=== PATIENT | male | born 1945 | race Caucasian/White ===

== ENCOUNTER → 2017-10-02 14:08 | Outpatient (CLI) | payer OTHER, SELFPAY ==
[2017-10-02 14:35] LABS: Add Manual Diff / Slide Review NO; Basophils Percent Auto 0.6 % (0-2); Eosinophils Percent Auto 2.3 % (2-4); Hematocrit 45.5 % (41-53); Hemoglobin 15.7 g/dL (13.5-17.5); Mean Corpuscular HGB Conc 34.6 % (30-36); Mean Corpuscular Hemoglobin 29.6 PG (26-34); Mean Corpuscular Volume 85.6 fL (80-100); Monocytes Percent Auto 7.8 % (3-14); Neutrophils Absolute Auto 5500 /uL (3000-5900); Neutrophils Percent Auto 73.3 % (50-75); Platelet Count 182 X10^3/uL (150-400); Red Blood Cell Count 5.32 X10^6/uL (4.5-5.9); Red Cell Distribution Width 13.3 % (11.6-14.8); White Blood Cell Count 7.5 X10^3/uL (4.5-11.0)
[2017-10-02 14:54] LABS: Transferrin 261 mg/dL (206-381)
[2017-10-02 14:57] LABS: BUN Creatinine Ratio 23.6 (6-22); Estimated Glomerular Filt Rate > 60.0 mL/min (>60); Glucose 144 mg/dL (80-110); HEMOLYSIS 28 (0-50); Hemoglobin A1C% w Est Avg Glu 6.9 % (4.0-6.0); Potassium 4.7 mmol/L (3.4-5.1); Sodium 140 mmol/L (137-145)
== END ==
PROVIDERS: PCP Internal Medicine; Visit Provider Orthopaedic Surgery
DX: Z01.812 Encounter for preprocedural laboratory examination (principal); M25.561 Pain in right knee; D64.9 Anemia, unspecified; R73.9 Hyperglycemia, unspecified
CPT/HCPCS: 36415; 80048; 83036; 84466; 85025; 93005

== ENCOUNTER 2017-10-26 09:47 | Inpatient (IN) | payer OTHER, SELFPAY ==
[2017-10-14 09:51] VITALS: BMI 31.4
[2017-10-26] VITALS (21 sets, daily range): BP systolic 81–125; BP diastolic 53–85; PULSE 57–79; RESP 10–70; TEMP 36.1–37.1; O2SAT 90–99; BMI 31.1
[2017-10-26] MEDS: LACTATED RINGERS 1,000 ML 42 ML IV ×2 (10:20→12:51)
[2017-10-26] MEDS: fentaNYL 100 MCG/2 ML INJ 50 MCG IV (10:27)
[2017-10-26] MEDS: MIDAZOLAM 2 MG/2 ML VIAL IV (10:27)
--- NOTE | 2017-10-26 11:01 | SUR.PREOP ---
Addendum entered by Francesco Turner R.N. 10/26/17 11:06: Actual time [id number]. Original Note: Ultrasound guided block by Dr Gore tolerated well by the patient. Premedicated with Fentanyl and Midazolam. Time of block 3700-0897.
--- NOTE | 2017-10-26 11:02 | SUR.PREOP ---
Needing o2 supplementation with sats decreasing. Some pauses in respiratory rate seen too. Patient does have history of ELIZABETH. Started oxygen at 2l and increased to 4L to keep sats >92%.
--- NOTE | 2017-10-26 11:26 | PM.PREOP ---
Pre-operative Note Interval Note Pre-op Check: History & Physical Reviewed by Physician and Changes
[2017-10-26] MEDS: CLINDAMYCIN 900 MG/50 ML PIGGYBACK 50 MG IV (11:27)
--- NOTE | 2017-10-26 12:11 | SUR.OPER ---
Supine on padded OR bed. Pillow under head, arms secured on padded armboards <90 degree abduction. Safety belt across torso. Non-operative leg secured with tape over blanket over lower leg. Operative leg secured in [place]. Foam padded brace at thigh of operative leg.
[2017-10-26] MEDS: MORPHINE 4 MG/ML INJ INJ (12:17)
[2017-10-26] MEDS: BUPIVACAINE 0.25% W/ EPI 50 ML VIAL INJ (12:17)
[2017-10-26] MEDS: BUPIVACAINE LIPOSOME 266 MG/20 ML VIAL INJ (12:18)
--- NOTE | 2017-10-26 13:11 | PC.NURSE ---
Day shift: Pt has many items in red due but Pt is not on the AC unit yet. 1200 start in OR. The charting will start when Pt gets to this unit.
--- NOTE | 2017-10-26 13:29 | DI.RAD.S_ITS ---
PROCEDURE: XR KNEE RT 1TO2V INDICATIONS: post operative right total knee TECHNIQUE: 2 view(s) of the knee acquired. COMPARISON: [facility] [place], JAQUELIN, XR KNEE 1 OR 2 VIEWS RIGHT, 10/26/2017, 9:25. FINDINGS: Bones: Patient is status post knee joint arthroplasty. Hardware components are in expected positions. Visualized bony structures are intact. Soft tissues: Overlying postoperative changes are noted. Expected postoperative edema, fluid, and air are evident. No definite radiopaque foreign bodies are appreciated. Overlying bandage is seen, anteriorly. Scattered vascular calcifications are seen posteriorly. IMPRESSION: Expected postoperative changes of the right knee, related to a total right knee arthroplasty. Dictated by: Pravin Boswell M.D. on 10/26/2017 at 12:58 Approved by: Pravin Boswell M.D. on 10/26/2017 at 12:59
--- NOTE | 2017-10-26 13:33 | P.OP_ITS ---
Operative Date/Time/Diagnoses - Date of procedure: 10/26/17 Time of procedure: 13:30 Pre-op diagnosis: Right knee osteoarthritis Post-op diagnosis: same Procedure & Clinicians Procedure: Right total knee replacement Same procedure as scheduled: Yes Indications: The patient has had progressively worsening right knee pain with radiographic changes consistent with arthritis. Non-operative management has failed and the patient has requested total knee replacement. The risks, benefits and alternatives to surgery were discussed with the patient prior to proceeding. Risks discussed included, but were not limited to, failure to relieve pain, stiffness, infection, nerve damage, deep venous thrombosis, pulmonary embolism, stroke, coma, heart attack, permanent paralysis and , as well as the potential need for eventual revision of the prosthetic. Surgeon: Bharat Patel Senior Games Technician: Suki Barrera Click Yes if Unassisted: No Anesthesia Type: Spinal, Sedation, Peripheral nerve block and Local Operative Notes Findings: Severe tricompartmental osteoarthritis worst in the medial compartment. Closure Type: primary Specimen(s): none sent Implants & Drains: Implants used in this procedure were manufactured by the [employer] and included the BCS II Journey total knee replacement with a size 8 right Oxinium femoral component, 7 right non porous tibial base plate, 10 mm cross-linked BCS II tibial insert, and a 38 mm oval flor II patellar component. Applied: graft(s) Estimated Blood Loss (mL): 50 Blood products transfused: none Tourniquet time (min): 57 Procedure in detail: The patient was seen in the pre-operative area, where the patient identified the right knee as the operative site and this was marked with my initials. The patient received pre-operative antibiotics, and was taken to the operating room and placed on the operative table in the supine position. After satisfactory anesthesia, a full charge bookkeeper out was performed. The right leg was encircled with a tourniquet about the proximal thigh, and the leg was prepared from the toes to the tourniquet with ChloroPrep in the usual fashion and draped through sterile drapes. The leg was elevated and exsanguinated with Eschmark bandage and the tourniquet inflated to 250 mmHg pressure. The knee was approached through an approximately 18 cm incision centered over the patella and carried into the knee through a medial parapatellar arthrotomy. The anterior osteophytes and soft tissues were removed. The rotational landmarks of El's line and the transepicondylar axis were marked on the femur with electrocautery, and intramedullary guide holes for the femur and tibia were created. The distal femoral cut was made in 6 degrees of valgus using the intramedullary guide at the primary cut setting. The proximal tibial cut was then made using the intramedullary guide, taking 9 mm of bone off the less involved side. The extension gap was checked and the rotation of the femoral component confirmed with the gap balancing system. The anterior, posterior and chamfer cuts were then made. The posterior osteophytes and soft tissues were then removed. The posterior capsule was injected with part of a mixture of 50 ml 0.25% Marcaine mixed with 20 ml Exparel and 4 mg of morphine for post-operative pain control. The remainder of this mixture was injected into the capsule and subcutaneous tissues during cement curing. The tibia was prepared with the rotation set by an extra medullary guide. Trial tibial and femoral components were then placed and the intercondylar notch cut through the femoral trial. Range of motion was 0-135 degrees, with good stability throughout the range. The patella was then cut to accommodate the patellar prosthetic. There was no need for a lateral release. The trials were then removed, and the femoral hole plugged with a bone plug. The bone was prepared with pulsatile lavage, and dried with a sponge. Cement was applied and the final prosthetics placed. Excess cement was removed during and after cement curing. After confirming there was no extruded cement posteriorly, the final tibial insert was placed. The knee was copiously irrigated and the tourniquet deflated. Hemostasis was obtained. The capsule was closed with interrupted # 2 polyester suture. The subcutaneous layer was closed with 3-0 Vicryl, and the skin with a running 3-0 V-Lock suture and SteriStrips. An Aquacel Ag dressing was applied and the patient was taken to recovery having tolerated the procedure well. Complications: none Condition: stable Disposition: PACU Plan for aftercare: The patient will be maintained on a standard total knee replacement protocol with weight bearing as tolerated. The patient will receive aspirin and sequential compression devices for DVT prophylaxis. The patient will be discharged home when safe for the home environment.
[2017-10-26] MEDS: LACTATED RINGERS 1,000 ML 125 ML IV ×2 (14:45→23:49)
--- NOTE | 2017-10-26 14:55 | PC.NURSE ---
Day shift: Arrived on unit at approx 1415 from PACU. A&Ox3. Oriented to room and call light. Uses I.S. RA 100%. VÍCTOR wrapped w/ Aquacel is CDI. PPP. Sensation not returned to BLE's yet. BLE's are warm. Tolerating SCD's. Tolerating ice water and had a Popsicle. Meds still not verified by pharmacy. Call light in reach. Bed alarm is on.
[2017-10-26] MEDS: OXYCODONE IR 10 MG TABLET PO ×2 (18:12→21:32)
[2017-10-26] MEDS: ACETAMINOPHEN 325 MG TABLET 650 MG PO (18:13)
[2017-10-26] MEDS: hydrOXYzine pamoate 25 MG CAPSULE PO ×2 (19:29→23:48)
[2017-10-26] MEDS: CEFAZOLIN 2 GM/100 ML FROZ.PIGGY IV (19:44)
[2017-10-26] MEDS: DOCUSATE 100 MG CAPSULE PO (21:24)
[2017-10-26] MEDS: ATORVASTATIN 20 MG TABLET 40 MG PO (21:24)
[2017-10-26] MEDS: ASPIRIN EC 81 MG TABLET PO (21:24)
[2017-10-27] MEDS: OXYCODONE IR 10 MG TABLET PO ×7 (00:34→21:05)
[2017-10-27] MEDS: ACETAMINOPHEN 325 MG TABLET 650 MG PO ×4 (03:48→19:00)
[2017-10-27] MEDS: CEFAZOLIN 2 GM/100 ML FROZ.PIGGY IV (03:49)
[2017-10-27 04:34] VITALS: BP 122/63; PULSE 72; RESP 18; TEMP 37.1; O2SAT 97
[2017-10-27 06:37] LABS: Hematocrit 40.4 % (41-53); Hemoglobin 13.8 g/dL (13.5-17.5)
[2017-10-27] MEDS: hydrOXYzine pamoate 25 MG CAPSULE PO ×3 (07:47→21:06)
[2017-10-27 08:30] VITALS: BP 115/61; PULSE 67; RESP 16; TEMP 36.9; O2SAT 92
[2017-10-27] MEDS: ASPIRIN EC 81 MG TABLET PO ×2 (08:43→21:10)
[2017-10-27] MEDS: DOCUSATE 100 MG CAPSULE PO ×2 (08:43→21:06)
--- NOTE | 2017-10-27 11:06 | PT.IIE ---
Current Diagnoses Bilateral primary osteoarthritis of knee (10/26/17) Surgery Performed Operation Date: 10/26/17 11:45 Actual Procedures p Total Knee Arthroplasty(Right) - Bharat Patel MD Surgical History (Last Updated 10/14/17 @ 16:30 by Nuris Mota) History of arthroplasty of left knee (Acute) History of carpal tunnel surgery of right wrist (Acute 1952) Hx of tonsillectomy (Acute) History of meniscectomy of left knee (Resolved) Hx of colonoscopy (Resolved 2011) Hx of esophagogastroduodenoscopy (Resolved 2007) Medical History (Last Updated 10/14/17 @ 16:30 by Nuris Mota) Dysphagia (Acute) Esophageal motility disorder (Acute) GERD (gastroesophageal reflux disease) (Acute) Nocturia (Acute) Osteoarthritis (Acute) Sleep apnea (Acute) Actinic keratosis (Chronic) Chronic back pain (Chronic 1975) MARSHALL (hard of hearing) (Chronic 1999) Hayfever (Chronic) Hyperlipidemia (Chronic) Knee pain, bilateral (Chronic 1997) Urticaria (Chronic) Wears hearing aid in both ears (Chronic 2014) Zenker diverticulum (Chronic) Chicken pox (Resolved) Measles (Resolved 1954) Physical Therapy Inpatient Evaluation/Re-Eval M1 PT/OT-IP Prior Functional Status Start: 10/27/17 10:56 Freq: NEEDED Status: Active Protocol: Document 10/27/17 10:57 AB (Rec: 10/27/17 11:06 [id number]) Medical Review Prior Functional Status Medical History Reviewed Yes Mobility and Gait pt stated that he is independent with all mobilities and ambulation without AD Social History Household Members significant other Living Arrangements House Number of Floors (Floors) Two Floors Number of Stairs To Enter/Railing? 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: works at a [employer] M2 PT-IP Current Condition Start: 10/27/17 10:56 Freq: NEEDED Status: Active Protocol: Document 10/27/17 10:57 AB (Rec: 10/27/17 11:06 [id number]) Physical Therapy Current Condition Current Condition Evaluation Date 10/27/17 Treatment Diagnosis s/p R TKA Onset Date 10/26/17 Weight Bearing Status Weight Bearing Status Weight Bear as Tolerated M3 PT-IP Subjective Start: 10/27/17 10:56 Freq: NEEDED Status: Active Protocol: Document 10/27/17 10:57 AB (Rec: 10/27/17 11:06 AB [id number]) Subjective Physical Therapy Visit Type Type Initial Evaluation Visit Start Time 09:00 Visit Stop Time 09:35 Total Visit Minutes 35 Number of OCCUPANCY SPECIALIST Visits 0 Physical Therapy Visit Comments Patient Comments pt agreeable to do therapy Therapy Pain Assessment Pain When Pain Assessed During Mobility Pain Present Pain Present Pain Reported Location Right Knee Intensity 5 Scale Used Numeric (1 - 10) Pain Management Techniques Apply Cold Timing of Activity with Medications M4 PT-IP Mobility and Gait Start: 10/27/17 10:56 Freq: NEEDED Status: Active Protocol: Document 10/27/17 10:57 AB (Rec: 10/27/17 11:06 AB [id number]) PT-Bed Mobility Assessment Supine to Sit Supine to Sit Standby Assistance Scooting Scooting to Edge of Bed Standby Assistance PT-Transfer Assessment Sit to and From Stand Sit to and from Stand Contact Guard Assistance Equipment Transfer Assistive Device Bed Rail Front Wheeled Walker Comments Mobility Comments supine BP: 118/60 CO 69 O2 sat 94%: pt with c/o dizziness in sitting. BP sitting on EOB: 106/67 BP after walking sitting on chiar: 74/45 BP reclined sitting on chair: 123/88 Nurse informed Gait Assessment Gait Gait Assistance Required: Contact Guard Assist Distance (Feet) (feet) 15 Able to Maintain Weight Bearing Status Yes During Gait Assistive Devices Assistive Device Gait Belt Front Wheeled Walker Gait Deviations General Gait Pattern Decreased Stride Length Decreased Feet Clearance Factors Limiting Gait Function Factors Limiting Gait Function Decreased Activity Tolerance Decreased Strength Pain Poor Balance Poor Safety Awareness PT-Balance Assessment Sitting Balance and Reactions Static Sitting Balance Ability Good Dynamic Sitting Balance Ability Good Standing Balance and Reactions Static Standing Balance Ability Fair Dynamic Standing Balance Ability Fair M5 PT-IP Objective Assessments Start: 10/27/17 10:56 Freq: NEEDED Status: Active Protocol: Document 10/27/17 10:57 AB (Rec: 10/27/17 11:06 AB [id number]) Orientation Orientation/Cognition Level of Alertness Alert Orientation Name Age Birthday Month Date Year Day of Week Place Situation Safety Awareness Understands Safety Issues Gross Range of Motion Lower Extremity ROM Assessment Right Impaired Strength Lower Extremity Strength Assessment Right Impaired Knee 3+/5 Ankle 5/5 M6 PT-IP Treatment Start: 10/27/17 10:56 Freq: NEEDED Status: Active Protocol: Document 10/27/17 10:57 AB (Rec: 10/27/17 11:06 AB [id number]) Physical Therapy Treatment Education Education Provided Precautions Weight Bearing Status Post-Op Packet Safety M7 PT-IP Assessment and Plan Start: 10/27/17 10:56 Freq: NEEDED Status: Active Protocol: Document 10/27/17 10:57 AB (Rec: 10/27/17 11:06 AB [id number]) PT Summary Assessment and Plan Potential Rehabilitation Potential Good Status of Condition at Evaluation Evolving Summary Impairments Pain ROM Strength Balance Coordination Sensation Tone Bed Mobility Transfers Gait Activity Tolerance Assessment Summary pt requiring SBA to CGA with mobility but unable to tolerate activities today due to c/o dizzines with decrease in BP after ambulation to 74/ 45. nurse aware. pt will likely improve during hospital stay and plans to go home with significant other to assist him. pt also has outpt PT already set up. Goals Bed Mobility Goal Independent Transfer Goal Independent Gait Goal Independent Gait Distance 150 Other Goals uup/down 2 steps without rail using FWW SBA Days to Meet Goals 3 Frequency of Treatment Frequency Of Treatment Twice a Day Treatment Plan Physical Therapy Treatment Plan Bed Mobility Training Transfer Training Gait Training Therapeutic Exercise Balance Retraining Post Op Education Discharge Planning Hot or Cold Pack Neuromuscular Re-ed Coordination Retraining Manual Therapy Other Recommendations and Next Treatment ambulation, stair climbing Focus Recommendations To Nursing Amount of Assist Needed 1 Person Assist Discharge Recommendations PT Discharge Recommendations Home with Assistance Outpatient PT Provider Visit Care Team Role Provider Type Ambrocio Galvez MD Primary Care Provider Physician Specialty: Internal Medicine Ajit Samano MD Family Provider Physician Specialty: Family Practice Bharat Patel MD Admit Provider Physician Attending Provider Specialty: Orthopedic Surgery
--- NOTE | 2017-10-27 11:33 | P.PN_ITS ---
Subjective Date Patient Seen: 10/27/17 Time Patient Seen: 11:31 Interval history: Patient is postop day 1. Right total knee arthroplasty by Dr. Patel. This morning he went to get up with PT but became dizzy. He only ambulated to the into the room and into a chair. Pain tolerable with pain medications. Patient is a [employer] patient has discharge medications except for Vistaril. Patient will try to ambulate further with PT. May be discharged home later this afternoon. Exam Vital Signs (past 8 hours): Vital Signs - 8 hr 3 10/27/17 04:34 10/27/17 08:30 Temperature 98.8 F 98.4 F Pulse Rate 72 67 Respiratory Rate 18 16 Blood Pressure 122/63 H 115/61 Pulse Oximetry 97 92 Pulse Oximetry 92 Oxygen Delivery Method Room Air Oxygen Flow Rate 0 Narrative Exam Narrative: Patient in bed. Comfortable. Alert and orient x3. Right knee dressing clean dry and intact with the John bandage overlap. Bilateral calf soft and nontender. Good right ankle strength. Neurovascular status intact. Objective Labs Result Diagrams: 10/27/17 05:40 Labs: Laboratory Results - last 24 hr 10/27/17 05:40 Hgb 13.8 Hct 40.4 L Assessment & Plan Post-op (1) Primary osteoarthritis of both knees: Onset Date: 03/13/17 Problem details: Patient is postop day 1. Right total knee arthroplasty by Dr. Patel. Continue DVT prophylaxis with SCDs and aspirin. Patient will try to ambulate further with PT this afternoon. Possible discharge home this afternoon. Current Visit: Yes Status: None Postoperative Procedures Operation Date: 10/26/17 11:45 Actual Procedures Side Surgeon p Total Knee Arthroplasty Right Bharat Patel MD Time Spent With Patient less than 15 minutes Quality VTE Deep Vein Thrombosis/Pulmonary Embolism Present on Admission: No
[2017-10-27 12:02] VITALS: BP 138/67; PULSE 73; RESP 16; TEMP 36.7; O2SAT 95
--- NOTE | 2017-10-27 13:37 | PC.NURSE ---
Day shift: Pt up w/ PT and got light headed. BP 70/50 then approx 1 minute later 123/80. No nausea. Plan is to get OOB w/ PT again and if all good then d/c to home. Will continue to monitor.
[2017-10-27 15:10] VITALS: BP 132/72; PULSE 69; RESP 17; TEMP 36.6; O2SAT 93
--- NOTE | 2017-10-27 17:16 | PT.IPTN ---
Current Diagnoses Bilateral primary osteoarthritis of knee (10/26/17) Surgery Performed Operation Date: 10/26/17 11:45 Actual Procedures p Total Knee Arthroplasty(Right) - Bharat Patel MD Physical Therapy Treatment Note M2 PT-IP Current Condition Start: 10/27/17 10:56 Freq: NEEDED Status: Active Protocol: Document 10/27/17 10:57 AB (Rec: 10/27/17 11:06 AB [id number]) Physical Therapy Current Condition Current Condition Evaluation Date 10/27/17 Treatment Diagnosis s/p R TKA Onset Date 10/26/17 Weight Bearing Status Weight Bearing Status Weight Bear as Tolerated M3 PT-IP Subjective Start: 10/27/17 10:56 Freq: NEEDED Status: Active Protocol: Document 10/27/17 17:06 AB (Rec: 10/27/17 17:16 AB [id number]) Subjective Physical Therapy Visit Type Type Treatment Note Visit Start Time 14:30 Visit Stop Time 14:52 Total Visit Minutes 22 Number of MEAT BUTCHER Visits 0 Physical Therapy Visit Comments Patient Comments pt agreeable to do PT Therapy Pain Assessment Pain Present Pain Present Pain Reported Location Right Knee Intensity 2 Scale Used Numeric (1 - 10) Pain Management Techniques Apply Cold Timing of Activity with Medications M4 PT-IP Mobility and Gait Start: 10/27/17 10:56 Freq: NEEDED Status: Active Protocol: Document 10/27/17 17:06 AB (Rec: 10/27/17 17:16 AB [id number]) PT-Bed Mobility Assessment Supine to Sit Supine to Sit Standby Assistance Sit to Supine Sit to Supine Minimal Assistance PT-Transfer Assessment Sit to and From Stand Sit to and from Stand Contact Guard Assistance Gait Assessment Gait Gait Assistance Required: Contact Guard Assist Distance (Feet) (feet) 50 Able to Maintain Weight Bearing Status Yes During Gait Assistive Devices Assistive Device Gait Belt Front Wheeled Walker Orthotic/Prosthetic Devices or Brace: No Gait Deviations General Gait Pattern Antalgic Factors Limiting Gait Function Factors Limiting Gait Function Decreased Activity Tolerance Decreased Strength Pain Poor Balance Comments Gait Comments BP monitored: supine: 134/73 sitting on EOB: 135/73 after ambulation sitting on EOB with c/o dizziness: 97/62 after 2 min restin/68 pt requested to go back to bed afterwards. nurse informed regarding BP. M5 PT-IP Objective Assessments Start: 10/27/17 10:56 Freq: NEEDED Status: Active Protocol: Document 10/27/17 10:57 AB (Rec: 10/27/17 11:06 AB [id number]) Orientation Orientation/Cognition Level of Alertness Alert Orientation Name Age Birthday Month Date Year Day of Week Place Situation Safety Awareness Understands Safety Issues Gross Range of Motion Lower Extremity ROM Assessment Right Impaired Strength Lower Extremity Strength Assessment Right Impaired Knee 3+/5 Ankle 5/5 M6 PT-IP Treatment Start: 10/27/17 10:56 Freq: NEEDED Status: Active Protocol: Document 10/27/17 10:57 AB (Rec: 10/27/17 11:06 AB [id number]) Physical Therapy Treatment Education Education Provided Precautions Weight Bearing Status Post-Op Packet Safety M7 PT-IP Assessment and Plan Start: 10/27/17 10:56 Freq: NEEDED Status: Active Protocol: Document 10/27/17 17:06 AB (Rec: 10/27/17 17:16 AB [id number]) PT Summary Assessment and Plan Potential Rehabilitation Potential Fair Summary Impairments Pain ROM Strength Balance Bed Mobility Transfers Gait Activity Tolerance Progress Towards Goals Slow Progress due to Activity Tolerance Assessment Summary pt continues to have decrease BP after ambulation limiting mobility. unable to assess stair climbing due to decrease in BP with pt c/o dizziness. Goals Bed Mobility Goal Independent Transfer Goal Independent Gait Goal Independent Gait Distance 150 Other Goals uup/down 2 steps without rail using FWW SBA Days to Meet Goals 3 Frequency of Treatment Frequency Of Treatment Twice a Day Treatment Plan Physical Therapy Treatment Plan Bed Mobility Training Transfer Training Gait Training Therapeutic Exercise Balance Retraining Post Op Education Discharge Planning Hot or Cold Pack Neuromuscular Re-ed Coordination Retraining Manual Therapy Other Recommendations and Next Treatment ambulation, stair climbing Focus Recommendations To Nursing Amount of Assist Needed 1 Person Assist Discharge Recommendations PT Discharge Recommendations Home with Assistance Outpatient PT
--- NOTE | 2017-10-27 17:17 | PT.IPTN ---
Current Diagnoses Bilateral primary osteoarthritis of knee (10/26/17) Surgery Performed Operation Date: 10/26/17 11:45 Actual Procedures p Total Knee Arthroplasty(Right) - Bharat Patel MD Physical Therapy Treatment Note M2 PT-IP Current Condition Start: 10/27/17 10:56 Freq: NEEDED Status: Active Protocol: Document 10/27/17 10:57 AB (Rec: 10/27/17 11:06 AB [id number]) Physical Therapy Current Condition Current Condition Evaluation Date 10/27/17 Treatment Diagnosis s/p R TKA Onset Date 10/26/17 Weight Bearing Status Weight Bearing Status Weight Bear as Tolerated M3 PT-IP Subjective Start: 10/27/17 10:56 Freq: NEEDED Status: Active Protocol: Document 10/27/17 17:06 AB (Rec: 10/27/17 17:16 AB [id number]) Subjective Physical Therapy Visit Type Type Treatment Note Visit Start Time 14:30 Visit Stop Time 14:52 Total Visit Minutes 22 Number of [employer]EN[employer] CONSULTANT Visits 0 Physical Therapy Visit Comments Patient Comments pt agreeable to do PT Therapy Pain Assessment Pain Present Pain Present Pain Reported Location Right Knee Intensity 2 Scale Used Numeric (1 - 10) Pain Management Techniques Apply Cold Timing of Activity with Medications M4 PT-IP Mobility and Gait Start: 10/27/17 10:56 Freq: NEEDED Status: Active Protocol: Document 10/27/17 17:06 AB (Rec: 10/27/17 17:16 AB [id number]) PT-Bed Mobility Assessment Supine to Sit Supine to Sit Standby Assistance Sit to Supine Sit to Supine Minimal Assistance PT-Transfer Assessment Sit to and From Stand Sit to and from Stand Contact Guard Assistance Gait Assessment Gait Gait Assistance Required: Contact Guard Assist Distance (Feet) (feet) 50 Able to Maintain Weight Bearing Status Yes During Gait Assistive Devices Assistive Device Gait Belt Front Wheeled Walker Orthotic/Prosthetic Devices or Brace: No Gait Deviations General Gait Pattern Antalgic Factors Limiting Gait Function Factors Limiting Gait Function Decreased Activity Tolerance Decreased Strength Pain Poor Balance Comments Gait Comments BP monitored: supine: 134/73 sitting on EOB: 135/73 after ambulation sitting on EOB with c/o dizziness: 97/62 after 2 min restin/68 pt requested to go back to bed afterwards. nurse informed regarding BP. M5 PT-IP Objective Assessments Start: 10/27/17 10:56 Freq: NEEDED Status: Active Protocol: Document 10/27/17 10:57 AB (Rec: 10/27/17 11:06 AB [id number]) Orientation Orientation/Cognition Level of Alertness Alert Orientation Name Age Birthday Month Date Year Day of Week Place Situation Safety Awareness Understands Safety Issues Gross Range of Motion Lower Extremity ROM Assessment Right Impaired Strength Lower Extremity Strength Assessment Right Impaired Knee 3+/5 Ankle 5/5 M6 PT-IP Treatment Start: 10/27/17 10:56 Freq: NEEDED Status: Active Protocol: Document 10/27/17 10:57 AB (Rec: 10/27/17 11:06 AB [id number]) Physical Therapy Treatment Education Education Provided Precautions Weight Bearing Status Post-Op Packet Safety M7 PT-IP Assessment and Plan Start: 10/27/17 10:56 Freq: NEEDED Status: Active Protocol: Document 10/27/17 17:06 AB (Rec: 10/27/17 17:16 AB [id number]) PT Summary Assessment and Plan Potential Rehabilitation Potential Fair Summary Impairments Pain ROM Strength Balance Bed Mobility Transfers Gait Activity Tolerance Progress Towards Goals Slow Progress due to Activity Tolerance Assessment Summary pt continues to have decrease BP after ambulation limiting mobility. unable to assess stair climbing due to decrease in BP with pt c/o dizziness. Goals Bed Mobility Goal Independent Transfer Goal Independent Gait Goal Independent Gait Distance 150 Other Goals uup/down 2 steps without rail using FWW SBA Days to Meet Goals 3 Frequency of Treatment Frequency Of Treatment Twice a Day Treatment Plan Physical Therapy Treatment Plan Bed Mobility Training Transfer Training Gait Training Therapeutic Exercise Balance Retraining Post Op Education Discharge Planning Hot or Cold Pack Neuromuscular Re-ed Coordination Retraining Manual Therapy Other Recommendations and Next Treatment ambulation, stair climbing Focus Recommendations To Nursing Amount of Assist Needed 1 Person Assist Discharge Recommendations PT Discharge Recommendations Home with Assistance Outpatient PT
[2017-10-27 19:25] VITALS: BP 148/73; PULSE 72; RESP 16; TEMP 37.3; O2SAT 95
--- NOTE | 2017-10-27 22:21 | PC.NURSE ---
Evening Shift Note A&O, VSS, 95% on RA. Oxycodone/Vistaril for pain. CMS intact. R Knee w/ aquacell/tam wrap C/D/I. SBA w/ FWW. No orthostatic hypotension this shift. No IV access, dc by day shift. Dc if tomorrow if BP remains WNL.
[2017-10-27 23:49] VITALS: BP 133/59; PULSE 70; RESP 16; TEMP 36.9; O2SAT 94
[2017-10-28] MEDS: ACETAMINOPHEN 325 MG TABLET 650 MG PO ×3 (00:18→11:57)
[2017-10-28] MEDS: OXYCODONE IR 10 MG TABLET PO ×4 (00:19→10:42)
[2017-10-28] MEDS: hydrOXYzine pamoate 25 MG CAPSULE PO (03:37)
[2017-10-28 04:44] VITALS: BP 121/70; PULSE 62; RESP 18; TEMP 37.2; O2SAT 93
--- NOTE | 2017-10-28 05:05 | PC.NURSE ---
0500 call rec'd from Ryan Basurto in lab to report positive blood culture from 1 peds bottle; gram stain is gram +bacilli. need to wait for plates to grow to ID.
--- NOTE | 2017-10-28 07:23 | PC.NURSE ---
Addendum entered by Oren Layne R.N. 10/28/17 11:51: D/c orders are placed and all paperwork is complete to have patient d/c. Patient is adamit he does not want to leave until after lunch, dispirte this nurses suggestions. Two calls have been placed to his to home and mobile phones and voicemails have been left on both numbers to inform of D/C of her spouse. Patient is req. to leave around 1300. No IV access as this was removed yesterday. Patient is resting w/ shades closed and door closed for the time being. Original Note: Patient is sleeping soundly at this time, but awake easily w/ nurse in room updating board. POD # 2, patient states pain is 2/10 at this time, discussed appropriate dosing for pain at 2/10 however patient does not want to do just Perolone 10mg, he wishes to pair up with 2 Vistaril as well. Discussed other options and patient is still persistent of this amount of tx. Patient is A&O x3. Drg. is CDI, w/ tam bandage over top, CMS intact, PP ++, trace edema noted. Patient discussed wanting to get up to chair for breakfast. Call light w/ in reach, bed in low pos.
[2017-10-28 07:40] VITALS: BP 122/71; PULSE 72; RESP 16; TEMP 36.6; O2SAT 90
[2017-10-28 08:30] VITALS: BP 107/63; BP 76/56
[2017-10-28] MEDS: ASPIRIN EC 81 MG TABLET PO (08:44)
[2017-10-28] MEDS: DOCUSATE 100 MG CAPSULE PO (08:44)
--- NOTE | 2017-10-28 08:57 | P.DS_ITS ---
History of Present Illness Date Patient Seen: 10/28/17 Time Patient Seen: 08:53 Chief complaint: rt total knee arthroplasty [id number] Narrative: Matias status post right total knee arthroplasty Discharge Providers Date of admission: 10/26/17 09:47 Primary care physician: Ambrocio Galvez MD Consults: 10/26/17 14:25 Consult to Discharge Planning Routine Comment: Consult to Physical Therapy Evaluate & Treat Comment: Physician Instructions: postop TKA protocol Discharge provider: Gauri Perez PA-C Summary Discharge Diagnosis: Status post right total knee arthroplasty Hospital Course: Matias admitted for right total knee arthroplasty, and he consented to procedure. Hospital course unremarkable. On postop day 2. He is feeling well and wanted to go home. He was urinating and eating without difficulty or assistance. He had been up and ambulating with physical therapy throughout his stay. At time of discharge, dressing on right knee with CDI. Status at Discharge Functional status at discharge: uses cane/walker Exam Vital Signs (past 8 hours): Vital Signs - 8 hr 3 10/28/17 04:44 10/28/17 07:40 Temperature 99.0 F 97.9 F Pulse Rate 62 72 Respiratory Rate 18 16 Blood Pressure 121/70 H 122/71 H Pulse Oximetry 93 90 L Pulse Oximetry 90 Oxygen Delivery Method Room Air Oxygen Flow Rate 0 Narrative Exam Narrative: Patient is sitting in bedside chair in no acute distress. He is alert and oriented x3. Dressing on right knee is CDI, John wrap in place. Calves are soft, compressible, nontender bilaterally. Pulses are symmetrical. He is able to actively dorsiflex and plantar flex. He has noted some dizziness with standing. Pain well controlled. Denies any chest pain, or shortness of breath. Objective Labs Result Diagrams: 10/27/17 05:40 Discharge Plan Discharge Plan Patient Disposition: Home, Self-Care Discharge comment: DC home this afternoon after physical therapy Discharge Med Rec/Prescriptions Prescriptions: New aspirin 81 mg Tablet,Delayed Release (Dr/Ec) 81 mg PO BID Qty: 0 RF: 0 hydroxyzine pamoate 25 mg Capsule 25 mg PO Q4-6H PRN (Reason: Nausea) Qty: 40 RF: 0 oxycodone 10 mg Tablet 10 mg PO Q3-4H PRN (Reason: Pain, Moderate) Qty: 0 RF: 0 Continue atorvastatin 40 MG tablet 40 mg PO HS Qty: 90 RF: 3 diclofenac sodium 75 MG tablet,delayed release (DR/EC) 75 mg PO BID RF: 0 EPINEPHRINE (#EPI EZ PEN) 1 mg IM QDAY PRN (Reason: bee stings) RF: 0 acetaminophen 500 mg Capsule 1,000 mg PO BID RF: 0 vitamin B complex 1 tab PO DAILY RF: 0 Follow up/Referrals: Bharat Patel MD [Physician] - (At scheduled appointment time and date.) Provider Discharge Instructions Diet: Diet as Tolerated Activity: Activity as tolerated. Cold/Heat Therapy: Apply ice to the knee to help with swelling and pain as needed. Wound Care Report to your healthcare provider any signs of infection, such as:: chills, fever, night sweats, increased pain and unusual drainage Visit Report/Discharge Packet Instructions: DI for Knee Replacement Stand Alone Forms: Surgery Discharge Visit Report Forms: Stroke Signs & Symptoms Discharge Data Primary Care Provider: Ambrocio Galvez Attending Provider: Bharat Patel Admit Date/Time: 10/26/17 09:47 Quality VTE Deep Vein Thrombosis/Pulmonary Embolism Present on Admission: No
--- NOTE | 2017-10-28 11:12 | PT.IPTN ---
Current Diagnoses Bilateral primary osteoarthritis of knee (10/26/17) Surgery Performed Operation Date: 10/26/17 11:45 Actual Procedures p Total Knee Arthroplasty(Right) - Bharat Patel MD Physical Therapy Treatment Note M2 PT-IP Current Condition Start: 10/27/17 10:56 Freq: NEEDED Status: Active Protocol: Document 10/27/17 10:57 AB (Rec: 10/27/17 11:06 AB [id number]) Physical Therapy Current Condition Current Condition Evaluation Date 10/27/17 Treatment Diagnosis s/p R TKA Onset Date 10/26/17 Weight Bearing Status Weight Bearing Status Weight Bear as Tolerated M3 PT-IP Subjective Start: 10/27/17 10:56 Freq: NEEDED Status: Active Protocol: Document 10/28/17 09:20 CLB (Rec: 10/28/17 11:12 CLB [id number]) Subjective Physical Therapy Visit Type Type Treatment Note Visit Start Time 09:20 Visit Stop Time 10:10 Total Visit Minutes 50 Number of SHIP KEEPER Visits 1 Physical Therapy Visit Comments Patient Comments pt agreeable to do PT Therapy Pain Assessment Pain When Pain Assessed During Mobility Pain Present Pain Present Pain Reported Location Right Knee Intensity 3 Scale Used Numeric (1 - 10) Pain Management Techniques Apply Cold Timing of Activity with Medications M4 PT-IP Mobility and Gait Start: 10/27/17 10:56 Freq: NEEDED Status: Active Protocol: Document 10/28/17 09:20 CLB (Rec: 10/28/17 11:12 CLB [id number]) PT-Bed Mobility Assessment Sit to Supine Sit to Supine Standby Assistance Scooting Scooting Up and Down in Bed Standby Assistance PT-Transfer Assessment Sit to and From Stand Sit to and from Stand Contact Guard Assistance Transfers Transfer Destination Bed Chair Wheelchair Transfer Technique walked Transfer Ability Level of Assist Standby Assistance Comments Mobility Comments sitting BP 113/62, BP after scooting to edge of chair pt c/o dizziness 106/66, BP in standing 106/69 pt no longer dizzy, BP in sitting after ambulation 106/69, again in sitting after 2 minutes BP 110/72 Gait Assessment Gait Gait Assistance Required: Contact Guard Assist Distance (Feet) (feet) 100 Able to Maintain Weight Bearing Status Yes During Gait Assistive Devices Assistive Device Gait Belt Front Wheeled Walker Orthotic/Prosthetic Devices or Brace: No Gait Deviations General Gait Pattern Antalgic Step-to Gait Factors Limiting Gait Function Factors Limiting Gait Function Decreased Activity Tolerance Decreased Strength Pain Poor Balance Comments Gait Comments Pt pn increased to 4/10 but had no c/o dizziness with ambulation. Stair Climbing Assessment Evaluation Level of Assist On Stairs Contact Guard Assistance Devices Stair Climbing Assistive Devices Straight Cane Left Railing Technique/Endurance Stair Climbing Direction Ascend and Descend Stair Climbing Technique Step to Step Number of Steps Climbed 3 Query Text: Stair Climbing Set # Repetitions (reps) 1 Comments Stair Climbing Comments Pt successfully trialed stairs w/CGA and will have two able persons to assist him into house. After in home he will not need to go to second level of home. M5 PT-IP Objective Assessments Start: 10/27/17 10:56 Freq: NEEDED Status: Active Protocol: Document 10/27/17 10:57 AB (Rec: 10/27/17 11:06 AB [id number]) Orientation Orientation/Cognition Level of Alertness Alert Orientation Name Age Birthday Month Date Year Day of Week Place Situation Safety Awareness Understands Safety Issues Gross Range of Motion Lower Extremity ROM Assessment Right Impaired Strength Lower Extremity Strength Assessment Right Impaired Knee 3+/5 Ankle 5/5 M6 PT-IP Treatment Start: 10/27/17 10:56 Freq: NEEDED Status: Active Protocol: Document 10/28/17 09:20 CLB (Rec: 10/28/17 11:12 CLB [id number]) Physical Therapy Treatment Exercises Exercises Ankle Pumps Quad Sets Heel Slides Straight Leg Raises Education Education Provided Weight Bearing Status Safety M7 PT-IP Assessment and Plan Start: 10/27/17 10:56 Freq: NEEDED Status: Active Protocol: Document 10/28/17 09:20 CLB (Rec: 10/28/17 11:12 CLB [id number]) PT Summary Assessment and Plan Potential Rehabilitation Potential Fair Status of Condition at Evaluation Evolving Summary Impairments Pain ROM Strength Balance Bed Mobility Transfers Gait Activity Tolerance Progress Towards Goals Progressing Toward Goals Safe For Discharge Assessment Summary Pt BP seems stable with no issues with dizziness with ambulation or stair climbing. Pt successfully completed stair climbing and ambulated safely in g[place]. Pt seems able to d/c home when medically stable. Goals Bed Mobility Goal Independent Transfer Goal Independent Gait Goal Independent Gait Distance 150 Other Goals uup/down 2 steps without rail using FWW SBA Days to Meet Goals 3 Frequency of Treatment Frequency Of Treatment Twice a Day Treatment Plan Physical Therapy Treatment Plan Bed Mobility Training Transfer Training Gait Training Therapeutic Exercise Balance Retraining Post Op Education Discharge Planning Hot or Cold Pack Neuromuscular Re-ed Coordination Retraining Manual Therapy Recommendations To Nursing Amount of Assist Needed 1 Person Assist Discharge Recommendations PT Discharge Recommendations Home with Assistance Outpatient PT
[2017-10-28 13:31] VITALS: BP 148/76; PULSE 78; RESP 18; TEMP 36.9; O2SAT 94
== END 2017-10-28 13:20 | disposition home or self-care (01) | DRG 470 ==
PROVIDERS: Admitting Provider Orthopaedic Surgery; Family Provider Family Medicine; PCP Internal Medicine; Visit Provider Orthopaedic Surgery
PROC: 0SRC0JZ Replacement of Right Knee Joint with Synthetic Substitute, Open Approach (ICD-10-PCS; CPT 27447; principal; 2017-10-26 11:45)
DX: M17.11 Unilateral primary osteoarthritis, right knee (principal); Z96.652 Presence of left artificial knee joint; E78.5 Hyperlipidemia, unspecified
CPT/HCPCS: 36415; 36592; 64450; 73560; 85014; 85018; 97110; 97116; 97162; 97530; C1776; C9290; J0690; J2250; J2270; J2704; J3010

== ENCOUNTER → 2017-12-31 08:59 | Outpatient (CLI) | payer OTHER, SELFPAY ==
[2017-10-26 14:27] VITALS: BMI 31.1
[2017-12-31 10:05] LABS: Add Manual Diff / Slide Review NO; Basophils Percent Auto 0.8 % (0-2); Eosinophils Percent Auto 2.3 % (2-4); Hematocrit 46.8 % (41-53); Lymphocytes Percent Auto 14.2 % (25-40); Mean Corpuscular HGB Conc 34.1 % (30-36); Mean Corpuscular Hemoglobin 29.9 PG (26-34); Mean Corpuscular Volume 87.7 fL (80-100); Monocytes Percent Auto 7.8 % (3-14); Neutrophils Absolute Auto 5400 /uL (3000-5900); Neutrophils Percent Auto 74.9 % (50-75); Platelet Count 215 X10^3/uL (150-400); Red Blood Cell Count 5.34 X10^6/uL (4.5-5.9); Red Cell Distribution Width 13.7 % (11.6-14.8); White Blood Cell Count 7.3 X10^3/uL (4.5-11.0)
[2017-12-31 10:10] LABS: Alanine Aminotransferase 44 IU/L (21-72); Albumin 4.4 g/dL (3.5-5.0); Albumin Globulin Ratio 1.6 (1.0-2.8); Alkaline Phosphatase 77 U/L (38-126); Aspartate Aminotransferase 33 IU/L (17-59); BUN Creatinine Ratio 17.3 (6-22); Bilirubin Total 0.7 mg/dL (0.2-1.3); Blood Urea Nitrogen 19 mg/dL (9-20); Calcium 9.3 mg/dL (8.4-10.2); Carbon Dioxide 28 mmol/L (22-32); Chloride 103 mmol/L (98-107); Cholesterol 133 mg/dL (140-199); Estimated Glomerular Filt Rate > 60.0 mL/min (>60); Globulin 2.7 g/dL (1.7-4.1); Glucose 124 mg/dL (80-110); HDL Cholesterol 35 mg/dL (40-60); HEMOLYSIS < 15 (0-50); LDL Cholesterol Calculated 76 mg/dL (<100); Potassium 4.7 mmol/L (3.4-5.1); Sodium 142 mmol/L (137-145); Total Protein 7.1 g/dL (6.3-8.2); Triglycerides 108 mg/dL (35-150)
[2017-12-31 10:24] LABS: Hemoglobin A1C% w Est Avg Glu 5.9 % (4.0-6.0)
[2017-12-31 10:39] LABS: Prostate Specific Antigen Scrn 0.346 ng/mL (0.1-4.0)
== END ==
PROVIDERS: PCP Internal Medicine; Visit Provider Internal Medicine
DX: E11.9 Type 2 diabetes mellitus without complications (principal); E78.00 Pure hypercholesterolemia, unspecified; M15.0 Primary generalized (osteo)arthritis
CPT/HCPCS: 36415; 80053; 80061; 83036; 85025; G0103

== ENCOUNTER → 2018-05-26 18:08 | Outpatient (REF) | payer OTHER, SELFPAY ==
[2017-10-26 14:27] VITALS: BMI 31.1
== END ==
LOC: LAB 18:08
PROVIDERS: Family Provider Family Medicine; PCP Internal Medicine; Visit Provider Physician Assistant
DX: L89.893 Pressure ulcer of other site, stage 3 (principal); T63.421A Toxic effect of venom of ants, accidental (unintentional), initial encounter
CPT/HCPCS: 87070; 87075; 87077; 87147; 87186; 87205

== ENCOUNTER → 2019-01-11 08:41 | Outpatient (CLI) | payer OTHER, SELFPAY ==
[2017-10-26 14:27] VITALS: BMI 31.1
[2019-01-11 09:52] LABS: Alanine Aminotransferase 46 IU/L (21-72); Albumin 4.2 g/dL (3.5-5.0); Albumin Globulin Ratio 1.6 (1.0-2.8); Alkaline Phosphatase 73 U/L (38-126); Aspartate Aminotransferase 31 IU/L (17-59); BUN Creatinine Ratio 27.8 (6-22); Bilirubin Total 0.7 mg/dL (0.2-1.3); Blood Urea Nitrogen 25 mg/dL (9-20); Calcium 9.4 mg/dL (8.4-10.2); Carbon Dioxide 30 mmol/L (22-32); Chloride 104 mmol/L (98-107); Cholesterol 132 mg/dL (140-199); Estimated Glomerular Filt Rate > 60.0 mL/min (>60); Globulin 2.6 g/dL (1.7-4.1); Glucose 120 mg/dL (80-110); HDL Cholesterol 38 mg/dL (40-60); HEMOLYSIS < 15 (0-50); LDL Cholesterol Calculated 73 mg/dL (<100); Potassium 5.2 mmol/L (3.4-5.1); Sodium 141 mmol/L (137-145); Total Protein 6.8 g/dL (6.3-8.2); Triglycerides 106 mg/dL (35-150)
== END ==
PROVIDERS: PCP Internal Medicine; Visit Provider Internal Medicine
DX: E66.9 Obesity, unspecified (principal); E78.00 Pure hypercholesterolemia, unspecified; E11.9 Type 2 diabetes mellitus without complications
CPT/HCPCS: 36415; 80053; 80061; 83036; G0103

== ENCOUNTER → 2019-02-15 08:42 | Outpatient (CLI) | payer OTHER, SELFPAY ==
[2017-10-26 14:27] VITALS: BMI 31.1
--- NOTE | 2019-02-15 | DI.US.S_ITS ---
PROCEDURE: US ABD AORTA ANEURYSM SCREEN INDICATIONS: ABDOMINAL AORTIC ANEURYSM SCREEN TECHNIQUE: Real time scanning was performed of the aorta and iliac arteries, with image documentation. COMPARISON: None. FINDINGS: Aorta: Proximal aortic diameter measures 2.7 cm. Mid-aorta measures 1.9 cm. Distal aortic diameter is 1.7 cm. Iliac arteries: Right common iliac artery measures 1.6 cm. Left common iliac artery measures 1.3 cm. IMPRESSION: Negative for aneurysm. Dictated by: Simon Thompson M.D. on 02/15/2019 at 10:38 Approved by: Simon Thompson M.D. on 02/15/2019 at 10:39
== END ==
PROVIDERS: PCP Internal Medicine; Visit Provider Internal Medicine
DX: Z13.6 Encounter for screening for cardiovascular disorders (principal)
CPT/HCPCS: 76706

== ENCOUNTER → 2019-11-11 15:01 | Outpatient (CLI) | payer OTHER, SELFPAY ==
[2019-11-11 10:56] VITALS: BMI 31.1
[2019-11-14 08:39] LABS: COVID19 Sendout Not Detected (Not Detect)
== END ==
PROVIDERS: PCP Internal Medicine; Visit Provider Physician Assistant
DX: Z11.59 Encounter for screening for other viral diseases (principal)
CPT/HCPCS: 87635

== ENCOUNTER 2019-12-13 17:25 | Inpatient (IN) | payer OTHER, SELFPAY ==
[2019-11-11 10:56] VITALS: BMI 31.1
[2019-12-13] VITALS (9 sets, daily range): BP systolic 128–165; BP diastolic 70–88; PULSE 61–78; RESP 14–28; TEMP 36.1–37.1; O2SAT 96–99; BMI 31.4
--- NOTE | 2019-12-13 | DI.ECHO.S_ITS ---
[facility] +---------+ : : [address] [place] : : : : [id number] : : : : Phone: [phone]+ Echocardiogram Report + + :Name: DENISE CROSS Study Date: 12/14/2019 Height: 71 in : :[facility] Weight: 224 lb : : Gender: Male BSA: 2.2 m2 : :: 1945 Age: 74 yrs BP: 128/75 mmHg: :Reason For Study: EXTREMITY WEAKNESS : :Ordering Physician: : :CLARENCE HOLMAN Performed By: Evon Ontiveros : :Referring: ROSSY LIMA : + + Interpretation Summary The left ventricle is normal in size and wall thickness. Left ventricular systolic function is normal. Grade I diastolic dysfunction. The right ventricle is at the upper limits of normal in size. The right ventricular systolic pressure is estimated to be at least 26 mmHg based on an estimated right atrial pressure of 3 mm Hg. The aortic valve in short axis view is not adequately visualized. There appears to be thickening of the noncoronary cusp. There is mild to moderate aortic regurgitation. If there is any concern about pathology involving the aortic valve, consider a limited repeat study or a transesophageal echocardiogram. No prior echocardiogram for comparison. Procedure: A two-dimensional transthoracic echocardiogram with color flow and Doppler was performed. The study quality was technically adequate. There is no prior echocardiogram noted for this patient. The patient was in sinus bradycardia with heart rates between 51-55 bpm during the exam. Left Ventricle: The left ventricle is normal in size and wall thickness. The ejection fraction is estimated to be 60-65%. Left ventricular global longitudinal strain average is -21.6%. Left ventricular systolic function is normal. There are no focal wall motion abnormalities. Diastolic parameters suggest a relaxation abnormality of the left ventricle, consistent with probable normal filling pressures. Right Ventricle: The right ventricle is at the upper limits of normal in size. Right ventricular function visually appears normal. Atria: The left atrial size is normal. Right atrial size is normal. There is no Doppler evidence for an interatrial shunt. Mitral Valve: The mitral valve is normal in structure and function. There is trace mitral regurgitation. Aortic Valve: The aortic valve is trileaflet. The aortic valve opens well. There is no aortic valve stenosis. There is mild to moderate aortic regurgitation. Tricuspid Valve: The tricuspid valve is normal in structure and function. There is mild tricuspid regurgitation. The right ventricular systolic pressure is estimated to be at least 26 mmHg based on an estimated right atrial pressure of 3 mm Hg. Pulmonic Valve: The pulmonic valve is not well visualized. There is trace pulmonic regurgitation. Great Vessels: The aortic root is borderline dilated. The ascending aorta is mildly enlarged. The IVC is of normal diameter and collapses greater than 50% with a sniff. This suggests a low right atrial pressure of 3 mm Hg. Pericardium/ Pleura There is no pericardial effusion. There is no pleural effusion. MMode/2D Measurements & Calculations LVIDd: 4.7 cm LVOT diam: 2.2 cm LVIDs: 3.0 cm Ao root diam: 3.8 cm FS: 36.4 % asc Aorta Diam: 3.6 cm EPSS: 0.98 cm Ao Arch Diam (Prox Trans): 3.2 cm IVSd: 1.1 cm LVPWd: 0.98 cm LV marmolejo. diameter/BSA (cm/m^2): 2.1 LV sys. diameter/BSA (cm/m^2): 1.4 LA A2 area: 20.0 cm2 RA long axis: 6.3 cm LA A4 area: 22.5 cm2 RA area: 22.1 cm2 LA length (vol): 6.1 cm RA vol: 66.1 ml LA vol: 62.3 ml RA : 29.9 ml/m2 LA vol index: 28.1 ml/m2 IVC diam: 1.2 cm RVD1 (basal): 4.1 cm Doppler Measurements & Calculations Ao V2 max: 123.9 cm/sec LVOT Max Dillon: 114.3 cm/sec Ao V2 mean: 79.7 cm/sec LV V1 max P.2 mmHg Ao max P.1 mmHg LV V1 VTI: 21.3 cm Ao mean P.0 mmHg JOSIE(I,D): 3.0 cm2 Ao V2 VTI: 27.3 cm JOSIE(V,D): 3.5 cm2 sev ratio: 0.78 JOSIE indexed to BSA (cm^2/m^2): 1.4 AI P1/2t: 1028 msec AI dec slope: 112.3 cm/sec2 MV E max dillon: 48.8 cm/sec TR max dillon: 238.2 cm/sec MV A max dillon: 55.7 cm/sec TR max P.7 mmHg MV E/A: 0.88 PA V2 max: 72.6 cm/sec Med Peak E' Dillon: 6.3 cm/sec PA V2 mean: 45.0 cm/sec E/E' med: 7.7 PA mean P.98 mmHg Lat Peak E' Dillon: 8.9 cm/sec PA pr(Accel): 20.8 mmHg E/E' lat: 5.5 E/e' average: 6.6 MV dec time: 0.24 sec SV(LVOT): 82.0 ml Electronically signed by: Lazaro Bernardo M.D. on Reading Physician:12/14/2019 03:34 PM
--- NOTE | 2019-12-13 17:35 | DI.CT.S_ITS ---
PROCEDURE: CT STROKE INDICATIONS: left arm drift TECHNIQUE: Noncontrast 4.5 mm thick angled axial sections acquired from the foramen magnum to the vertex, with coronal reformats. For radiation dose reduction, the following was used: automated exposure control, adjustment of mA and/or kV according to patient size. COMPARISON: [facility], , CT HEAD W/O CONTRAST, 09/29/2005, 13:13. FINDINGS: Image quality: Excellent. CSF spaces: Basal cisterns are patent. No extra-axial fluid collections. The ventricles are symmetric in size and shape. Brain: No intracranial bleeds or masses. There is cerebral volume loss for age, with resultant ventricular and sulcal prominence. There are periventricular and deep white matter chronic small vessel ischemic changes. There is intracranial internal carotid artery atherosclerosis. Skull and face: Calvarium and visualized facial bones appear intact, without suspicious lesions. Sinuses: Visualized sinuses and mastoids are clear. IMPRESSION: No acute intracranial hemorrhage is seen. No acute intracranial process is seen. If there is strong clinical suspicion for an acute stroke, please consider an MRI for further evaluation, as it is more sensitive (assuming that there is no contraindication to MRI). Note: Case discussed by telephone with Dr. Tsai at the at 4:53 p.m. [place] time on December 13, 2019. This study fulfills neurological imaging criteria for inclusion or exclusion of acute stroke therapies based on available published neurological guidelines. Dictated by: Simon Thompson M.D. on 12/13/2019 at 16:53 Approved by: Simon Thompson M.D. on 12/13/2019 at 16:56
--- NOTE | 2019-12-13 17:35 | DI.CT.S_ITS ---
PROCEDURE: CT ANGIO HEAD AND NECK INDICATIONS: Left arm pronator drift TECHNIQUE: Pre-contrast 4.5 mm thick sections acquired from the foramen magnum to the vertex. After the administration of intravenous contrast, 1 mm thick sections acquired from the aortic arch through the [place] of [place]. Post-contrast 4.5 mm thick sections then re-acquired from the foramen magnum to the vertex. 3-dimensional wshdodb-exdfoijwd-olfceyhrnz (MIP) and/or volume rendering reformats were acquired of the central intracranial vasculature and neck separately. COMPARISON: None. FINDINGS: Image quality: Excellent. HEAD CT ANGIOGRAPHY: Anterior circulation: There is no flow-limiting stenosis or branch occlusion of the intracranial internal carotid arteries, anterior cerebral arteries, or middle cerebral arteries. Anterior communicating artery is patent. Posterior circulation: The right vertebral artery V4 segment is diminutive, and appears to terminate in PICA with little to no contribution to the basilar. The basilar artery is widely patent. Both posterior cerebral arteries are widely patent. There is normal variant persistent origin of the left posterior cerebral artery. NECK CT ANGIOGRAPHY: Carotid system: There is atherosclerotic plaque and calcification at the carotid bifurcations and origins of the internal carotid arteries with no hemodynamically significant stenosis. Posterior circulation: Cervical portions of the vertebral arteries are widely patent. The right vertebral artery is mildly hypoplastic. Soft tissues: Visualized neck soft tissues demonstrate no suspicious abnormalities. There are numerous bilateral subcentimeter pulmonary nodules which are indeterminate. Bones: No suspicious bony lesions. Visualized cervical spine appears normally aligned. IMPRESSION: No hemodynamically significant stenosis of the major intracranial or extracranial arterial vasculature. Normal variant hypoplastic city of the right vertebral artery and diminutive right V4 segment which likely terminates in PICA and contributes very little to the basilar artery. Persistent origin of the left posterior cerebral artery, an additional normal variant. Multiple bilateral pulmonary nodules, none measuring greater than 7 mm, all indeterminate. Follow-up in 6 months recommended. Any quantitative measurements of stenosis were performed using NASCET criteria. Dictated by: Kamron Prince M.D. on 12/13/2019 at 18:22 Approved by: Kamron Prince M.D. on 12/13/2019 at 18:31
[2019-12-13 17:42] LABS: Add Manual Diff / Slide Review NO; Basophils Absolute Auto 100 /uL (0-100); Basophils Percent Auto 0.8 % (0-2); Eosinophils Absolute Auto 200 /uL (0-450); Eosinophils Percent Auto 1.8 % (2-4); Hematocrit 45.1 % (41-53); Hemoglobin 15.2 g/dL (13.5-17.5); Lymphocytes Absolute Auto 1300 /uL (1100-4500); Mean Corpuscular HGB Conc 33.8 % (30-36); Mean Corpuscular Hemoglobin 29.8 PG (26-34); Mean Corpuscular Volume 88.1 fL (80-100); Monocytes Absolute Auto 700 /uL (0-900); Monocytes Percent Auto 7.9 % (3-14); Neutrophils Absolute Auto 6400 /uL (1500-7000); Neutrophils Percent Auto 74.5 % (50-75); Platelet Count 187 X10^3/uL (150-400); Red Blood Cell Count 5.12 X10^6/uL (4.5-5.9); Red Cell Distribution Width 13.5 % (11.6-14.8); White Blood Cell Count 8.5 X10^3/uL (4.5-11.0)
--- NOTE | 2019-12-13 17:42 | ED.NEUROSD ---
HPI - Neuro Symptoms/Deficit General Chief Complaint: Neuro Symptoms/Deficit Stated Complaint: Weakness in Left Arm Down To Left Leg Time Seen by Provider: 12/13/19 17:35 Source: patient Mode of arrival: Ambulatory Limitations: no limitations History of Present Illness HPI Narrative: Patient is a 74-year-old male history of hypertension hyperlipidemia presenting with left arm weakness starting at approximately 3:30 pm. He said he was hiking with a friend and noticed that his arm started to feel funny and he felt like it was weak. He denies any numbness or tingling no other deficits no prior history of stroke he is not on any anticoagulation Onset (ago): hour(s) Location: left arm Quality: weak Related Data Home Medications Medication Instructions Recorded Confirmed EPINEPHRINE (#EPI EZ PEN) 1 mg IM QDAY PRN 10/14/17 11/23/19 acetaminophen 1,000 mg PO BID 10/14/17 11/23/19 vitamin B complex 1 tab PO DAILY 10/26/17 11/23/19 Previous Rx's Medication Instructions Recorded atorvastatin 40 mg tablet 40 mg PO HS #90 tab 12/04/17 diclofenac sodium 75 mg 75 mg PO BID #60 tab 12/28/17 tablet,delayed release Allergies Allergy/AdvReac Type Severity Reaction Status Date / Time Penicillins [PENICILLINS] Allergy Severe childhood Verified 12/13/19 17:42 reaction, HIVES, HOSPITALIZED venom-honey bee Allergy Severe swelling, Verified 12/13/19 17:42 [BEE VENOM (HONEY BEE)] groin area warm, difficulty breathing Review of Systems Review of Systems Narrative: GENERAL: Denies chills, fatigue, malaise, fever, sweats, travel HEENT: Denies sinus pain, ear pain, sore throat, difficulty swallowing, neck pain RESPIRATORY: Denies dyspnea, cough, wheezing, hemoptysis, sputum. CARDIOVASCULAR: Denies chest pain, palpitations, orthopnea, edema GASTROINTESTINAL: Denies nausea, vomiting, abdominal pain, diarrhea, constipation, melena. : Denies dysuria, frequency, incontinence, hematuria, urinary retention, flank pain. MUSCULOSKELETAL: Denies weakness, joint pain, or bony pain SKIN: No rash, no erythema, no pruritus NEUROLOGIC: See HPI PSYCHIATRIC: No concerning psychosocial issues. 12 point review of systems is negative except for those stated above and HPI Patient History Medical History (Updated 07/28/20 @ 18:22 by Josee Tsai DO) Actinic keratosis (Chronic) Chicken pox (Resolved ~1950) Chronic back pain (Chronic 1975) Dysphagia (Chronic) Esophageal motility disorder (Chronic) GERD (gastroesophageal reflux disease) (Chronic) Hayfever (Chronic) [place] (hard of hearing) (Chronic 1999) Hyperlipidemia (Chronic) Knee pain, bilateral (Chronic 1997) Measles (Resolved 1954) Nocturia (Chronic) Osteoarthritis (Chronic) Primary osteoarthritis of both knees (Chronic 03/13/17) Sleep apnea (Chronic) Urticaria (Chronic) Wears hearing aid in both ears (Chronic 2014) Zenker diverticulum (Chronic) Surgical History (Updated 08/17/19 @ 20:41 by Shawna Briggs) Anesthesia (Resolved) History of carpal tunnel surgery of right wrist (Resolved 1952) History of meniscectomy of left knee (Resolved 04/06/08) 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 Grandfather Influenza Son No problems noted. Social History household members: significant other Smoking Status: Former smoker (Quit 1974 ) Tobacco: How many years used: 14 alcohol intake: current (2-3 drinks per week ) substance use type: marijuana Smoking Status: Former smoker (Quit 1974 ) alcohol intake frequency: a few times a week Substance Use Type: marijuana Exam Initial Vital Signs Initial Vital Signs: Vital Signs Temperature 98.8 F 12/13/19 17:25 Pulse Rate 67 12/13/19 17:25 Respiratory Rate 15 12/13/19 17:25 Blood Pressure 160/84 H 12/13/19 17:25 Pulse Oximetry 96 12/13/19 17:25 GENERAL: Well-appearing, well-nourished and in no acute distress. HEENT: Head atraumatic,EOMI, pupils reactive, face symmetric, moist mucous membranes CARDIOVASCULAR: Regular rate and rhythm without murmurs, rubs or gallops. RESPIRATORY: Breath sounds equal bilaterally, no wheezes rales or rhonchi. ABDOMEN: Soft, nontender. Normoactive bowel sounds all 4 quadrants. No guarding or rebound. EXTREMITIES: Normal range of motion, no clubbing or edema. Neurovascularly intact NEUROLOGICAL: Alert and oriented x4.Normal gait and speech. Cranial nerves II through XII grossly intact. Good zcfemm-va-koek, good jxgz-lw-phro, strength equal bilaterally, left arm drift but does not hit bed no dysarthria or aphasia, sensation in tact to soft touch bilaterally, no visual changes, no facial droop SKIN: Warm, dry, no laceration, no petechiae, no rashes or lesions. Scores ABCD2 Age >= 60 years: yes Initial BP. Either SBP >= 140 or DBP >= 90.: yes Clinical features of the TIA: unilateral weakness Duration of symptoms: >= 60 minutes History of diabetes: no ABCD2 Score: 6 NIH Stroke Scale Level of Conciousness: Alert, keenly responsive Ask month/age: Answers both questions correctly. Open/close eyes, close hand: Performs both tasks correctly Best gaze horizontal: Normal Visual ayala: No visual loss Facial palsy: Normal symetrical movement Left arm drift: Drifts down, not to bed Right arm drift: No drift for full 10 sec Left leg drift: No drift for full 10 sec Right leg drift: No drift for full 10 sec Limb ataxia: Absent Sensory on face/arms/legs: Normal, no sensory loss Best language: No aphasia, normal Dysarthria: Normal Extinction or inattention: No abnormality Total NIH Stroke scale score: 1 Course Orders Ordered: ED Orders 12/13/19 17:30 Basic Metabolic Panel Stat Complete Blood Count AUTO DIFF Stat Partial Thromboplastin Time Stat Prothrombin Time INR Stat Troponin & CK Cardiac Panel Stat 12/13/19 17:[address] angio head and neck Stat Urine Drug Screen, Rapid Stat EKG-12 Lead Stat Sodium Chloride (Normal Saline 0.9%) 1,000 mls @ 150 mls/hr IV CONT RITA Last Admin: 12/13/19 18:02 Dose: 150 mls/hr Documented by: ALEXIS Discontinued Medications Clopidogrel Bisulfate (Plavix) 300 mg PO NOW ONE Stop: 12/13/19 18:21 Vital Signs Vital signs: Vital Signs - 8 hr 12/13/19 17:25 12/13/19 17:47 12/13/19 17:48 Temperature 98.8 F Pulse Rate 67 78 74 Respiratory Rate 15 Blood Pressure 160/84 H 165/88 H Pulse Oximetry 96 96 96 12/13/19 18:00 12/13/19 18:10 Temperature Pulse Rate 72 62 Respiratory Rate 28 H 23 Blood Pressure 151/74 H Pulse Oximetry 98 97 MDM - Neuro Symptoms/Deficit Lab Data Attestation: I reviewed the patient's lab results. Result diagrams: 12/13/19 17:30 12/13/19 17:30 Labs: Lab Results 12/13/19 12/13/19 12/13/19 Range/Units 17:30 17:30 17:30 WBC 8.5 (4.5-11.0) X10^3/uL RBC 5.12 (4.5-5.9) X10^6/uL Hgb 15.2 (13.5-17.5) g/dL Hct 45.1 (41-53) % MCV 88.1 (80-100) fL MCH 29.8 (26-34) PG MCHC 33.8 (30-36) % RDW 13.5 (11.6-14.8) % Plt Count 187 (150-400) X10^3/uL Neut % (Auto) 74.5 (50-75) % Lymph % (Auto) 15.0 L (25-40) % [place] % (Auto) 7.9 (3-14) % Eos % (Auto) 1.8 L (2-4) % Baso % (Auto) 0.8 (0-2) % Neut # (Auto) 6400 (8516-2747) /uL Lymph # (Auto) 1300 (3725-5667) /uL [place] # (Auto) 700 (0-900) /uL Eos # (Auto) 200 (0-450) /uL Baso # (Auto) 100 (0-100) /uL PT 10.8 (10.1-12.7) SECONDS INR 0.9 (0.9-1.3) APTT 29 (26.4-36.2) SECONDS Sodium 137 (137-145) mmol/L Potassium 4.4 (3.4-5.1) mmol/L Chloride 106 (98-107) mmol/L Carbon Dioxide 24 (22-32) mmol/L BUN 26 H (9-20) mg/dL Creatinine 1.06 (0.66-1.25) mg/dL Estimated GFR > 60.0 (>60) mL/min BUN/Creatinine Ratio 24.5 H (6-22) Glucose 112 H (80-110) mg/dL Calcium 8.9 (8.4-10.2) mg/dL Total Creatine Kinase 164 (55-170) U/L CK-MB (CK-2) 3.04 H (<2.37) ng/mL CK-MB (CK-2) Rel Index 1.9 (1.5-5.0) % Troponin I < 0.012 (0.01-0.034) ng/mL Point of Care Testing Glucose POC [address] scan - head: Radiologist's Impression: PROCEDURE: CT STROKE INDICATIONS: left arm drift TECHNIQUE: Noncontrast 4.5 mm thick angled axial sections acquired from the foramen magnum to the vertex, with coronal reformats. For radiation dose reduction, the following was used: automated exposure control, adjustment of mA and/or kV according to patient size. COMPARISON: [facility], , CT HEAD W/O CONTRAST, 09/29/2005, 13:13. FINDINGS: Image quality: Excellent. CSF spaces: Basal cisterns are patent. No extra-axial fluid collections. The ventricles are symmetric in size and shape. Brain: No intracranial bleeds or masses. There is cerebral volume loss for age, with resultant ventricular and sulcal prominence. There are periventricular and deep white matter chronic small vessel ischemic changes. There is intracranial internal carotid artery atherosclerosis. Skull and face: Calvarium and visualized facial bones appear intact, without suspicious lesions. Sinuses: Visualized sinuses and mastoids are clear. IMPRESSION: No acute intracranial hemorrhage is seen. No acute intracranial process is seen. If there is strong clinical suspicion for an acute stroke, please consider an MRI for further evaluation, as it is more sensitive (assuming that there is no contraindication to MRI). Note: Case discussed by telephone with Dr. Tsai at the at 4:53 p.m. [place] time on December 13, 2019. This study fulfills neurological imaging criteria for inclusion or exclusion of acute stroke therapies based on available published neurological guidelines. Dictated by: Simon Thompson M.D. on 12/13/2019 at 16:53 Approved by: Simon Thompson M.D. on 12/13/2019 at 16:56 cta head: Radiologist's Impression: PROCEDURE: CT ANGIO HEAD AND NECK INDICATIONS: Left arm pronator drift TECHNIQUE: Pre-contrast 4.5 mm thick sections acquired from the foramen magnum to the vertex. After the administration of intravenous contrast, 1 mm thick sections acquired from the aortic arch through the [place]. Post-contrast 4.5 mm thick sections then re-acquired from the foramen magnum to the vertex. 3-dimensional aqetsso-oeyikacml-tspmfwynka (MIP) and/or volume rendering reformats were acquired of the central intracranial vasculature and neck separately. COMPARISON: None. FINDINGS: Image quality: Excellent. HEAD CT ANGIOGRAPHY: Anterior circulation: There is no flow-limiting stenosis or branch occlusion of the intracranial internal carotid arteries, anterior cerebral arteries, or middle cerebral arteries. Anterior communicating artery is patent. Posterior circulation: The right vertebral artery V4 segment is diminutive, and appears to terminate in PICA with little to no contribution to the basilar. The basilar artery is widely patent. Both posterior cerebral arteries are widely patent. There is normal variant persistent origin of the left posterior cerebral artery. NECK CT ANGIOGRAPHY: Carotid system: There is atherosclerotic plaque and calcification at the carotid bifurcations and origins of the internal carotid arteries with no hemodynamically significant stenosis. Posterior circulation: Cervical portions of the vertebral arteries are widely patent. The right vertebral artery is mildly hypoplastic. Soft tissues: Visualized neck soft tissues demonstrate no suspicious abnormalities. There are numerous bilateral subcentimeter pulmonary nodules which are indeterminate. Bones: No suspicious bony lesions. Visualized cervical spine appears normally aligned. IMPRESSION: No hemodynamically significant stenosis of the major intracranial or extracranial arterial vasculature. Normal variant hypoplastic city of the right vertebral artery and diminutive right V4 segment which likely terminates in PICA and contributes very little to the basilar artery. Persistent origin of the left posterior cerebral artery, an additional normal variant. Multiple bilateral pulmonary nodules, none measuring greater than 7 mm, all indeterminate. Follow-up in 6 months recommended. Any quantitative measurements of stenosis were performed using NASCET criteria. Dictated by: Kamron Prince M.D. on 12/13/2019 at 18:22 ECG Data Attestation: I personally reviewed and interpreted this ECG as follows: Prior ECG tracings: available for review Interpretation: Normal sinus rhythm rate 68 p.r. interval 222 QRS [address] changes 1st degree AV block noted on previous EKG as well MDM Narrative Medical decision making narrative: Tele Stroke Neurology was consulted initially and evaluated patient himself. However the patient returned from CT his symptoms improved and patient is no longer a candidate for tPA. He does have an elevated is ABCD2 score and does qualify for dual antiplatelet therapy. Patient will be admitted for TIA. Dr. Martino accepts patient Discharge Plan Departure Patient Disposition: Admitted as Observation Clinical Impression: Brain TIA Referrals: Shane Whitman MD [Primary Care Provider] -
[2019-12-13 17:49] LABS: INR 0.9 (0.9-1.3); Prothrombin Time 10.8 SECONDS (10.1-12.7)
[2019-12-13 17:52] LABS: PTT Partial Thromboplastin Tim 29 SECONDS (26.4-36.2)
[2019-12-13 17:53] LABS: BUN Creatinine Ratio 24.5 (6-22); Blood Urea Nitrogen 26 mg/dL (9-20); Calcium 8.9 mg/dL (8.4-10.2); Carbon Dioxide 24 mmol/L (22-32); Chloride 106 mmol/L (98-107); Creatine Kinase 164 U/L (55-170); Estimated Glomerular Filt Rate > 60.0 mL/min (>60); Glucose 112 mg/dL (80-110); HEMOLYSIS 28 (0-50); Potassium 4.4 mmol/L (3.4-5.1); Sodium 137 mmol/L (137-145)
[2019-12-13] MEDS: SODIUM CHLORIDE 0.9% 1,000 ML 150 ML IV (18:02)
[2019-12-13] MEDS: ASPIRIN 81 MG CHEW TAB 324 MG (18:04)
[2019-12-13 18:05] LABS: Troponin I < 0.012 ng/mL (0.01-0.034)
[2019-12-13 18:08] LABS: CKMB % Relative Index 1.9 % (1.5-5.0); Creatine Kinase MB 3.04 ng/mL (<2.37)
[2019-12-13] MEDS: CLOPIDOGREL 75 MG TABLET 300 MG PO (18:40)
--- NOTE | 2019-12-13 21:03 | DI.MRI.S_ITS ---
PROCEDURE: MR STROKE Pre- and post-contrast brain MRI, non-contrast brain MR angiogram, pre- and postcontrast neck MR angiogram INDICATIONS: Left sided upper and lower extremity weakness TECHNIQUE: Brain: Noncontrast axial T1 spin echo, axial T2 fast spin echo, sagittal and axial FLAIR, coronal T2 fast spin echo, axial gradient echo, axial diffusion and ADC through the brain. After the administration of contrast, axial 3D VIBE of the cranial vasculature and brain. Brain MRA: Non-contrast 3-D time of flight MR angiogram, with multiple fttbyks-gahjgpsyi-ocahvdjebx (MIP) reformats performed. Neck MRA: Axial and sagittal TruFISP through the neck. Coronal dynamic MR angiogram during administration of contrast in the arterial and venous phases, with 3-dimenstional xefnyax-rhjzmebmx-zztartlcgk (MIP) reformats constructed from subtraction images. COMPARISON: None. FINDINGS: Image quality: Excellent. BRAIN: CSF spaces: Ventricles are normal in size and shape. Basal cisterns are patent. No extra-axial fluid collections. Brain: No intracranial bleeds or mass effects. Alexander-white matter interface is normal. There is mild, diffuse cerebral volume loss. Small punctate foci of restricted diffusion noted in the posterior right frontal subcortical white matter and the right parietal cortical alexander matter compatible with acute infarcts. There is a focus of increased T2 signal in the anterior left caudate body without associated restricted diffusion which has imaging characteristics concerning for early chronic infarct. Brainstem appears normal. Normal intravascular flow voids are present. No abnormal intracranial enhancement. Skull and face: Calvarial marrow signal is normal. Orbits appear normal. Sinuses: Sinuses and mastoids are clear. BRAIN MR ANGIOGRAM: Anterior circulation: Intracranial internal carotid arteries are normal in size and enhancement. The flow within the paired anterior cerebral arteries is normal and symmetric. The flow within the middle cerebral arteries is normal and symmetric. The anterior communicating artery is seen. No stenoses, occlusions, or aneurysms. Posterior circulation: The visualized portions of the vertebral arteries demonstrate normal caliber. The right vertebral artery terminates in a right posterior inferior cerebellar artery which is a congenital anatomic variant. Normal flow noted in the basilar artery. The flow within the posterior cerebral arteries is normal and symmetric. Left posterior cerebral artery has a origin. No stenoses, occlusions, or aneurysms. NECK MR ANGIOGRAM: Carotids: Great vessels demonstrate a conventional anatomy as they arise from the aortic arch. The origins of the common carotid arteries appear patent. The calibers and courses of both common carotid arteries are normal. Mild atherosclerotic irregularity noted in the origins of the internal carotid arteries bilaterally which causes less than 50% stenosis of the vessels. Posterior circulation: The origins of the vertebral arteries appear patent. More superior portions of both vertebral arteries demonstrate normal course and caliber, and join to form a normal appearing basilar artery. Miscellaneous: Subclavian arteries appear patent. Pre-contrast images through the neck show no soft tissue abnormalities. IMPRESSION: BRAIN MRI: 1. Small, acute lacunar infarcts involving the posterior right frontal subcortical white matter and the right parietal cortical alexander matter. 2. Probable early chronic lacunar infarct involving the left caudate body. 3. No abnormal intracranial mass or mass effect. 4. No suspicious postcontrast enhancement. 5. No intracranial hemorrhage. BRAIN MR ANGIOGRAM: Negative examination. NECK MR ANGIOGRAM: 1. Less than 50% stenosis of the origins of the internal carotid arteries bilaterally. 2. Vertebral arteries appear fully patent. Dictated by: Chelsae Hoffman MD, PhD on 12/14/2019 at 11:28 Approved by: Chelsea Hoffman MD, PhD on 12/14/2019 at 11:38
[2019-12-13 21:23] LABS: Hemoglobin A1C% w Est Avg Glu 6.5 % (4.0-6.0)
[2019-12-13 21:40] LABS: Influenza A - CEPHEID Flu A NEGATIVE (NEGATIVE); Influenza B - CEPHEID Flu B NEGATIVE (NEGATIVE)
[2019-12-13 22:05] LABS: COVID19 -Nasal RAPID Negative (Negative)
[2019-12-13] MEDS: ATORVASTATIN 20 MG TABLET 40 MG PO (22:28)
--- NOTE | 2019-12-13 23:32 | PM.HP.1 ---
History of Present Illness History of Present Illness Date Patient Seen: 12/13/19 Time Patient Seen: 22:30 Chief complaint: Weakness in Left Arm Down To Left Leg Narrative: Matias Lucero is a 74 y.o. male with hyperlipidemia was in his usual state of health when he was out hiking with a friend today and felt sudden onset left-sided weakness that started in his upper left arm and then extended down to his left leg. He does endorse having weakness in his left hand that is chronic and persistently his middle finger is swollen due to what he believes is arthritis. Denies fevers sweats or chills, shortness of breath, chest pain, nausea vomiting, dysuria, incontinence of bowel and bladder, diarrhea or constipation, or changes in mentation. Per the emergency department, the patient was evaluated by the tele stroke service and he was determined not to meet criteria for anti thrombolytics and they recommended that he be observed overnight and undergo a head MRI and echocardiogram. CT of the brain was negative for an acute intracranial process, CT angio of the head neck indicated No hemodynamically significant stenosis of the major intracranial or extracranial arterial vasculature. Normal variant hypoplastic city of the right vertebral artery and diminutive right V4 segment which likely terminates in PICA and contributes very little to the basilar artery. Persistent origin of the left posterior cerebral artery, an additional normal variant. Temp is 97, blood pressure 128/75, heart rate 73, respiratory rate 19, oxygen saturation 97% on room air, he weighs 102 kg and has a BMI of 31.4. WBC is 8.5 RBC 5.12 hemoglobin 15.2 hematocrit 45.1,platelet count 187, sodium 137, potassium 4.4, chloride 106, CO2 24, creatinine 1.06, BUN 26, GFR greater than 60, glucose 112, calcium 8.9, CK-MB is 3.04, troponin 0.12, COVID-19 negative, hemoglobin A1c is 6.5% Patient History Medical History Actinic keratosis (Chronic) Chicken pox (Resolved ~1950) Chronic back pain (Chronic 1975) Dysphagia (Chronic) Esophageal motility disorder (Chronic) GERD (gastroesophageal reflux disease) (Chronic) Hayfever (Chronic) [place] (hard of hearing) (Chronic 1999) Hyperlipidemia (Chronic) Knee pain, bilateral (Chronic 1997) Measles (Resolved 1954) Nocturia (Chronic) Osteoarthritis (Chronic) Primary osteoarthritis of both knees (Chronic 03/13/17) Sleep apnea (Chronic) Urticaria (Chronic) Wears hearing aid in both ears (Chronic 2014) [place] diverticulum (Chronic) Surgical History Anesthesia (Resolved) History of carpal tunnel surgery of right wrist (Resolved 1952) History of meniscectomy of left knee (Resolved 04/06/08) History of total left knee replacement (Resolved 06/02/17) History of total right knee replacement (Resolved 10/26/17) Hx of colonoscopy (Resolved 02/23/12) Hx of esophagogastroduodenoscopy (Resolved 2007) Hx of tonsillectomy (Resolved) Family & Social History Family History Father Pancreatic cancer Grandfather Heart disease Mother Stroke AVM (arteriovenous malformation) Brother History of manic depressive disorder Mental health problem Grandmother No problems noted. Grandfather Influenza Son No problems noted. Social History: household members significant other Prior Living Arrangements House Safety & Behavioral: Feels Safe in Current Yes Environment Been Physically Hurt or No Threatened By a Person Suicidal Ideation Description None Suicide Plan Description No Plan Tobacco & Substance use: Tobacco type cigarettes,pipe Smoking Status Former smoker alcohol intake current alcohol intake frequency a few times a week Substance Use Type marijuana Meds Home Medications and Allergies Home Medications Medication Instructions Recorded Confirmed Type acetaminophen 1,000 mg PO BID 10/14/17 12/13/19 History diclofenac sodium 75 mg 75 mg PO BID #60 tab 12/28/17 12/13/19 Rx tablet,delayed release atorvastatin 20 mg PO HS 12/13/19 12/13/19 History Allergies Allergy/AdvReac Type Severity Reaction Status Date / Time Penicillins [PENICILLINS] Allergy Severe childhood Verified 12/13/19 17:42 reaction, HIVES, HOSPITALIZED venom-honey bee Allergy Severe swelling, Verified 12/13/19 17:42 [BEE VENOM (HONEY BEE)] groin area warm, difficulty breathing Review of Systems Review of Systems ROS: Yes All systems reviewed with the patient and are negative except as otherwise documented Exam Vital Signs (past 8 hours): - 12/13/19 17:25 12/13/19 17:47 12/13/19 17:48 Temperature 98.8 F Pulse Rate 67 78 74 Respiratory Rate 15 Blood Pressure 160/84 H 165/88 H Pulse Oximetry 96 96 96 12/13/19 18:00 12/13/19 18:10 12/13/19 18:30 Temperature Pulse Rate 72 62 61 Respiratory Rate 28 H 23 14 Blood Pressure 151/74 H 137/77 Pulse Oximetry 98 97 98 12/13/19 19:00 12/13/19 19:01 12/13/19 20:43 Temperature 97.0 F L Pulse Rate 69 65 73 Respiratory Rate 19 19 19 Blood Pressure 156/70 H 128/75 Pulse Oximetry 99 98 97 Oxygen Delivery Method Room Air Narrative Exam Narrative: Gen: Alert, oriented, well-developed 74 y.o. male, very alert and conversational HEENT: normocephalic, atraumatic, conjunctiva clear, sclera non-icteric, oral mucosa pink and moist Neck: supple, full ROM, no JVD, trachea is midline Resp: Lungs CTA, non-labored breathing CV: RRR, no murmur or rubs Abd: soft, non-tender, normoactive BTs Skin: no lesions or rashes, dry and intact Neuro: Alert and oriented X 4 w/no focal deficits. Speech clear and coherent. 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 Objective Labs Result Diagrams: 12/13/19 17:30 12/13/19 17:30 Labs: Laboratory Results - last 24 hr 12/13/19 12/13/19 12/13/19 17:30 17:30 17:30 WBC 8.5 RBC 5.12 Hgb 15.2 Hct 45.1 MCV 88.1 MCH 29.8 MCHC 33.8 RDW 13.5 Plt Count 187 Neut % (Auto) 74.5 Lymph % (Auto) 15.0 L [place] % (Auto) 7.9 Eos % (Auto) 1.8 L Baso % (Auto) 0.8 Neut # (Auto) 6400 Lymph # (Auto) 1300 [place] # (Auto) 700 Eos # (Auto) 200 Baso # (Auto) 100 PT 10.8 INR 0.9 APTT 29 Sodium 137 Potassium 4.4 Chloride 106 Carbon Dioxide 24 BUN 26 H Creatinine 1.06 Estimated GFR > 60.0 BUN/Creatinine Ratio 24.5 H Glucose 112 H Hemoglobin A1c Calcium 8.9 Total Creatine Kinase 164 CK-MB (CK-2) 3.04 H CK-MB (CK-2) Rel Index 1.9 Troponin I < 0.012 COVID-19 PCR Influenza A (RT-PCR) Influenza B (RT-PCR) 12/13/19 12/13/19 12/13/19 17:30 21:05 21:05 WBC RBC Hgb Hct MCV MCH MCHC RDW Plt Count Neut % (Auto) Lymph % (Auto) [place] % (Auto) Eos % (Auto) Baso % (Auto) Neut # (Auto) Lymph # (Auto) [place] # (Auto) Eos # (Auto) Baso # (Auto) PT INR APTT Sodium Potassium Chloride Carbon Dioxide BUN Creatinine Estimated GFR BUN/Creatinine Ratio Glucose Hemoglobin A1c 6.5 H Calcium Total Creatine Kinase CK-MB (CK-2) CK-MB (CK-2) Rel Index Troponin I COVID-19 PCR Cancelled Influenza A (RT-PCR) Flu a negative Influenza B (RT-PCR) Flu b negative 12/13/19 21:05 WBC RBC Hgb Hct MCV MCH MCHC RDW Plt Count Neut % (Auto) Lymph % (Auto) [place] % (Auto) Eos % (Auto) Baso % (Auto) Neut # (Auto) Lymph # (Auto) [place] # (Auto) Eos # (Auto) Baso # (Auto) PT INR APTT Sodium Potassium Chloride Carbon Dioxide BUN Creatinine Estimated GFR BUN/Creatinine Ratio Glucose Hemoglobin A1c Calcium Total Creatine Kinase CK-MB (CK-2) CK-MB (CK-2) Rel Index Troponin I COVID-19 PCR Negative Influenza A (RT-PCR) Influenza B (RT-PCR) Assessment & Plan Assessment & Plan narrative: Caleb Lucero will observed overnight and undergo MRI visualization of his head and an echocardiogram. Suspected TIA, acute, present on admission -MR stroke -complete echocardiogram -PT/OT/ST evaluate and treat Pre diabetes, new diagnosis, present on admission with a hemoglobin A1c of 6.5 -patient will be counseled on dietary interventions and a need for three-month follow-up with his PCP Hyperlipidemia, stable, present on admission -home dose of atorvastatin is 20 mg at bedtime, this is been increased to 40 mg at bedtime -fasting lipid panel in the morning Consults: one Patient is observation status as his stay is not likely to exceed 2 midnights. FEN: IV saline lock , low sodium diet, BMP in the am. VTE prophylaxis: Bilateral SCDs Dispo: Likely discharge to home Code Status: Full code as discussed with patient COVID-19 COVID-19 status: Negative Result date/Date tested (Pos, Neg/Pending): 12/13/19 Quality VTE Deep Vein Thrombosis/Pulmonary Embolism Present on Admission: No
--- NOTE | 2019-12-13 23:34 | PC.NURSE ---
Admit note: Pt brought from ER at 1930, VS stable. RA oxygen 98-100%. Denies SOB or chest pain. Denies any pain at all. ER did not do covid swab before sending patient to acute care. I notified my supervisor engines road. Shawna Juan ordered stat swab with rapid covid test which was done. NIH is zero, extremities equal at time of assessment. Later ambulated with SBA to BR, this nurse observed him limp a little on his left leg upon 1st few steps, after that gait steady with equal mvmt of LE's. Pt voided large amt of urine, BASKET MAKER flushed before knew that we still needed to collect UA (did not void in ER.) Covid swab is negative. Pt taken off precautions.
[2019-12-14] VITALS (7 sets, daily range): BP systolic 129–147; BP diastolic 62–80; PULSE 57–65; RESP 16–18; TEMP 36.4–37.1; O2SAT 93–97
[2019-12-14 02:04] LABS: UR Morphine/Opiate cutoff 300 Negative (Negative); Ur Creatinine Normal (Normal); Ur Specific Gravity Normal (Normal); Urine Amphetamines Negative (Negative); Urine Barbiturates Negative (Negative); Urine Benzodiazepines Negative (Negative); Urine Cocaine Negative (Negative); Urine MDMA Negative (Negative); Urine Methadone Negative (Negative); Urine Methamphetamines Negative (Negative); Urine Oxycodone Negative (Negative); Urine Phencyclidine Negative (Negative); Urine Tetrahydrocannabinol Positive (Negative); Urine Tricyclic Antidepressant Negative (Negative); Urine pH Normal (Normal)
[2019-12-14 05:39] LABS: Add Manual Diff / Slide Review NO; Basophils Absolute Auto 100 /uL (0-100); Basophils Percent Auto 0.8 % (0-2); Eosinophils Absolute Auto 200 /uL (0-450); Eosinophils Percent Auto 3.5 % (2-4); Hematocrit 42.5 % (41-53); Hemoglobin 14.4 g/dL (13.5-17.5); Lymphocytes Absolute Auto 1400 /uL (1100-4500); Mean Corpuscular Hemoglobin 29.8 PG (26-34); Mean Corpuscular Volume 87.7 fL (80-100); Monocytes Absolute Auto 600 /uL (0-900); Monocytes Percent Auto 8.9 % (3-14); Neutrophils Absolute Auto 4500 /uL (1500-7000); Neutrophils Percent Auto 66.8 % (50-75); Platelet Count 162 X10^3/uL (150-400); Red Blood Cell Count 4.84 X10^6/uL (4.5-5.9); Red Cell Distribution Width 13.4 % (11.6-14.8); White Blood Cell Count 6.7 X10^3/uL (4.5-11.0)
[2019-12-14 05:45] LABS: Alanine Aminotransferase 33 IU/L (<50); Albumin 3.7 g/dL (3.5-5.0); Albumin Globulin Ratio 1.5 (1.0-2.8); Alkaline Phosphatase 61 U/L (38-126); Aspartate Aminotransferase 33 IU/L (17-59); BUN Creatinine Ratio 21.6 (6-22); Bilirubin Total 0.4 mg/dL (0.2-1.3); Blood Urea Nitrogen 21 mg/dL (9-20); Calcium 8.7 mg/dL (8.4-10.2); Carbon Dioxide 28 mmol/L (22-32); Chloride 107 mmol/L (98-107); Cholesterol 138 mg/dL (140-199); Estimated Glomerular Filt Rate > 60.0 mL/min (>60); Globulin 2.4 g/dL (1.7-4.1); Glucose 109 mg/dL (80-110); HDL Cholesterol 32 mg/dL (40-60); HEMOLYSIS 16 (0-50); LDL Cholesterol Calculated 81 mg/dL (<100); Magnesium 2.1 mg/dL (1.6-2.3); Potassium 4.3 mmol/L (3.4-5.1); Sodium 138 mmol/L (137-145); Total Protein 6.1 g/dL (6.3-8.2); Triglycerides 127 mg/dL (35-150)
[2019-12-14] MEDS: ASPIRIN EC 81 MG TABLET PO (08:43)
--- NOTE | 2019-12-14 10:41 | PC.NURSE ---
Pt to radiology for MRI
--- NOTE | 2019-12-14 11:25 | PC.NURSE ---
Pt back to room from MRI. Tele on. Pt denies needs at this time. Pt reading the paper and agrees to call for assistance as needed.
--- NOTE | 2019-12-14 12:43 | CM.DANOTE ---
DCP assessment: EMR reviewed: Patient is a 74 yr old male who was admitted for a possible for TIA. PCP is Dr Whitman. CM/RN Met with patient at the bedside and explained role. Patient was alert and oriented x3 during visit. Patient currently lives alone and has a son Andres who lives in [place]. Patient is Independent with all ADL's and drives at baseline. MRI pending, PT pending. I: [place] and self pay Plan: D/C home when medically stable- no D/C planning needs noted at this time. Cm department will follow to assist with any new d/c planning issues that may arise. 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 Yes: dpoa for health care/ health care [facility] Advance Directives on File Yes History Provided By Patient,Medical Record Has Patient been admitted in last 30 No days? Prior Living Arrangements House Household Members significant other Type of transporation used prior to Drives own vehicle admit Independent with ADL's Yes Is patient alert and oriented? Yes Caregiver for Another No DME Already Rented / Owned Cane Patient/Family Preference OP PT Therapy Barriers to Discharge No Discharge Plan Home Referrals Initiated None needed Whiteboard Updated in Patient Room with Yes name and ext. # of Reinforcing Steel Machine Operator Review Status In Process Next Review Type Continued Stay Review
--- NOTE | 2019-12-14 15:00 | PM.PN.1 ---
Subjective Subjective Date Patient Seen: 12/14/19 Time Patient Seen: 15:02 Interval history: Matias Lucero is a 74 y.o. male with hyperlipidemia was in his usual state of health when he was out hiking with a friend and felt sudden onset left-sided weakness that started in his upper left arm and then extended down to his left leg. He was admitted for suspected TIA and is seen for follow-up today. His symptoms ultimately resolved in the emergency room however he does complain of a still residual left-sided weakness and states his left side ?just feels off.? He states that he is much improved since he arrived, an is seemingly able to do everything he used to be able to do. He was seen by Physical therapy and found to have some minor deficits. His MRI showed small, acute lunar infarcts involving the posterior right frontal subcortical white matter and the right parietal cortical warren matter. There was also a probable early chronic lacunar infarct involving the left caudate body. There were no significant arterial blockages. He has been started on aspirin and Plavix. There is a possibility this is due to undiagnosed atrial fibrillation given multiple small infarcts found on MRI. Echocardiogram is currently pending, but no atrial fibrillation has been noted on telemetry monitoring. Exam Vital Signs (past 8 hours): - 12/14/19 08:00 12/14/19 11:36 Temperature 97.7 F 98.2 F Pulse Rate 60 59 L Respiratory Rate 16 17 Blood Pressure 141/62 H 134/80 Pulse Oximetry 97 96 Oxygen Delivery Method Room Air Oxygen Flow Rate 0 Narrative Exam Narrative: GENERAL APPEARANCE: Well developed, well nourished, in no acute distress. SKIN: Inspection of the skin reveals no rashes, ulcerations or petechiae. HEENT: Normocephalic atraumatic, extraocular muscles are intact, oropharynx is clear and mucous membranes are moist, neck is supple without adenopathy NECK: Supple and symmetric. There was no thyroid enlargement, and no tenderness, or masses were felt. CHEST: Normal AP diameter and normal contour without any kyphoscoliosis. LUNGS: Auscultation of the lungs revealed no wheezes, rhonchi, or rales. CARDIOVASCULAR: There was a regular rate and rhythm without any murmurs, gallops, rubs. Peripheral pulses were 2+ and symmetric. ABDOMEN: Soft and nontender with normal bowel sounds. No ascites was noted. MUSCULOSKELETAL: There was no tenderness or effusions noted. Muscle strength and tone were normal. EXTREMITIES: No cyanosis, clubbing or edema. NEUROLOGIC: Alert and oriented x 3. Normal affect. Gait was normal. Strength is +5/5 in the Upper Extremities and Lower Extremities Bilaterally. Sensation to touch was normal. Cranial nerves 2-12 grossly intact bilaterally. Heel to dowell unremarkable, finger to nose unremarkable. Speech is seemingly normal. Objective Labs Result Diagrams: 12/14/19 05:13 12/14/19 05:13 Labs: Laboratory Results - last 24 hr 12/13/19 12/13/19 12/13/19 17:30 17:30 17:30 WBC 8.5 RBC 5.12 Hgb 15.2 Hct 45.1 MCV 88.1 MCH 29.8 MCHC 33.8 RDW 13.5 Plt Count 187 Neut % (Auto) 74.5 Lymph % (Auto) 15.0 L [place] % (Auto) 7.9 Eos % (Auto) 1.8 L Baso % (Auto) 0.8 Neut # (Auto) 6400 Lymph # (Auto) 1300 [place] # (Auto) 700 Eos # (Auto) 200 Baso # (Auto) 100 PT 10.8 INR 0.9 APTT 29 Sodium 137 Potassium 4.4 Chloride 106 Carbon Dioxide 24 BUN 26 H Creatinine 1.06 Estimated GFR > 60.0 BUN/Creatinine Ratio 24.5 H Glucose 112 H Hemoglobin A1c Calcium 8.9 Magnesium Total Bilirubin AST ALT Alkaline Phosphatase Total Creatine Kinase 164 CK-MB (CK-2) 3.04 H CK-MB (CK-2) Rel Index 1.9 Troponin I < 0.012 Total Protein Albumin Globulin Albumin/Globulin Ratio Triglycerides Cholesterol LDL Cholesterol, Calc HDL Cholesterol U Opiates 300ng/mL cut Ur Oxycodone Screen Urine Methadone Screen Ur Barbiturates Screen U Tricyclic Antidepress Ur Phencyclidine Scrn Ur Amphetamines Screen U Methamphetamines Scrn Ur MDMA Scrn (Ecstasy) U Benzodiazepines Scrn Urine Cocaine Screen U Marijuana (THC) Screen COVID-19 PCR Influenza A (RT-PCR) Influenza B (RT-PCR) 12/13/19 12/13/19 12/13/19 17:30 21:05 21:05 WBC RBC Hgb Hct MCV MCH MCHC RDW Plt Count Neut % (Auto) Lymph % (Auto) [place] % (Auto) Eos % (Auto) Baso % (Auto) Neut # (Auto) Lymph # (Auto) [place] # (Auto) Eos # (Auto) Baso # (Auto) PT INR APTT Sodium Potassium Chloride Carbon Dioxide BUN Creatinine Estimated GFR BUN/Creatinine Ratio Glucose Hemoglobin A1c 6.5 H Calcium Magnesium Total Bilirubin AST ALT Alkaline Phosphatase Total Creatine Kinase CK-MB (CK-2) CK-MB (CK-2) Rel Index Troponin I Total Protein Albumin Globulin Albumin/Globulin Ratio Triglycerides Cholesterol LDL Cholesterol, Calc HDL Cholesterol U Opiates 300ng/mL cut Ur Oxycodone Screen Urine Methadone Screen Ur Barbiturates Screen U Tricyclic Antidepress Ur Phencyclidine Scrn Ur Amphetamines Screen U Methamphetamines Scrn Ur MDMA Scrn (Ecstasy) U Benzodiazepines Scrn Urine Cocaine Screen U Marijuana (THC) Screen COVID-19 PCR Cancelled Influenza A (RT-PCR) Flu a negative Influenza B (RT-PCR) Flu b negative 12/13/19 12/14/19 12/14/19 21:05 01:50 05:13 WBC 6.7 RBC 4.84 Hgb 14.4 Hct 42.5 MCV 87.7 MCH 29.8 MCHC 34.0 RDW 13.4 Plt Count 162 Neut % (Auto) 66.8 Lymph % (Auto) 20.0 L [place] % (Auto) 8.9 Eos % (Auto) 3.5 Baso % (Auto) 0.8 Neut # (Auto) 4500 Lymph # (Auto) 1400 [place] # (Auto) 600 Eos # (Auto) 200 Baso # (Auto) 100 PT INR APTT Sodium Potassium Chloride Carbon Dioxide BUN Creatinine Estimated GFR BUN/Creatinine Ratio Glucose Hemoglobin A1c Calcium Magnesium Total Bilirubin AST ALT Alkaline Phosphatase Total Creatine Kinase CK-MB (CK-2) CK-MB (CK-2) Rel Index Troponin I Total Protein Albumin Globulin Albumin/Globulin Ratio Triglycerides Cholesterol LDL Cholesterol, Calc HDL Cholesterol U Opiates 300ng/mL cut Negative Ur Oxycodone Screen Negative Urine Methadone Screen Negative Ur Barbiturates Screen Negative U Tricyclic Antidepress Negative Ur Phencyclidine Scrn Negative Ur Amphetamines Screen Negative U Methamphetamines Scrn Negative Ur MDMA Scrn (Ecstasy) Negative U Benzodiazepines Scrn Negative Urine Cocaine Screen Negative U Marijuana (THC) Screen Positive H COVID-19 PCR Negative Influenza A (RT-PCR) Influenza B (RT-PCR) 12/14/19 05:13 WBC RBC Hgb Hct MCV MCH MCHC RDW Plt Count Neut % (Auto) Lymph % (Auto) [place] % (Auto) Eos % (Auto) Baso % (Auto) Neut # (Auto) Lymph # (Auto) [place] # (Auto) Eos # (Auto) Baso # (Auto) PT INR APTT Sodium 138 Potassium 4.3 Chloride 107 Carbon Dioxide 28 BUN 21 H Creatinine 0.97 Estimated GFR > 60.0 BUN/Creatinine Ratio 21.6 Glucose 109 Hemoglobin A1c Calcium 8.7 Magnesium 2.1 Total Bilirubin 0.4 AST 33 ALT 33 Alkaline Phosphatase 61 Total Creatine Kinase CK-MB (CK-2) CK-MB (CK-2) Rel Index Troponin I Total Protein 6.1 L Albumin 3.7 Globulin 2.4 Albumin/Globulin Ratio 1.5 Triglycerides 127 Cholesterol 138 L LDL Cholesterol, Calc 81 HDL Cholesterol 32 L U Opiates 300ng/mL cut Ur Oxycodone Screen Urine Methadone Screen Ur Barbiturates Screen U Tricyclic Antidepress Ur Phencyclidine Scrn Ur Amphetamines Screen U Methamphetamines Scrn Ur MDMA Scrn (Ecstasy) U Benzodiazepines Scrn Urine Cocaine Screen U Marijuana (THC) Screen COVID-19 PCR Influenza A (RT-PCR) Influenza B (RT-PCR) Assessment & Plan Assessment & Plan narrative: Matias Lucero is a 74-year-old male with past medical history of hyperlipidemia who presented with sudden onset of left-sided weakness which improved in the emergency room. He was admitted with a suspected TIA however MRI was positive for multiple small infarcts. He was seen by physical therapy and does have some minor left-sided deficits in coordination. Given multiple infarcts on MRI there is some concern for atrial fibrillation. Will keep him on telemetry monitoring overnight again to evaluate for this possibility. Echocardiogram is currently pending read. Given his presentation he was started on dual antiplatelet therapy and will complete 3 weeks of Plavix unless evidence of atrial fibrillation is found. 1. Acute CVA, right frontal and right parietal areas, present on admission - - MRI showed small, acute lunar infarcts involving the posterior right frontal subcortical white matter and the right parietal cortical warren matter. There was also a probable early chronic lacunar infarct involving the left caudate body. There were no significant arterial blockages. -echocardiogram pending. -appreciate physical and occupational therapy evaluations, to continue while patient is admitted. Recommended for additional outpatient occupational therapy. -will assume small vessel disease at this point and patient was given aspirin 324 mg as well as Plavix 300 mg in the emergency room. He will continue on aspirin 81 mg daily for life, and Plavix 75 mg daily for a total of 3 weeks for risk reduction unless evidence of atrial fibrillation is found. -will continue cardiac monitoring as there are multiple infarcts on his MRI which can be indicative of atrial fibrillation. Highly recommend Holter monitor as an outpatient if no evidence of atrial fibrillation is found. 2. Diabetes, new diagnosis, present on admission with a hemoglobin A1c of 6.5 -patien counseled on dietary interventions and a need for three-month follow-up with his PCP. Discussed the possibility of initiation of a medication, however he elects to work on his diet which does consist of ice cream nightly prior to initiation of medical therapy. 3. Hyperlipidemia, stable, present on admission -home dose of atorvastatin is 20 mg at bedtime, this is been increased to 40 mg at bedtime -fasting lipid panel with LDL of 81, HDL 32, and total cholesterol 138. Triglycerides 127. Dispo: Changed to inpatient status for acute CVA. Will continue cardiac monitoring but if no further events anticipate discharge tomorrow. Anticipate discharge home with outpatient therapies. Quality VTE Deep Vein Thrombosis/Pulmonary Embolism Present on Admission: No
--- NOTE | 2019-12-14 15:28 | PT.IIE ---
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) History of total right knee replacement (Resolved 10/26/17) Hx of colonoscopy (Resolved 02/23/12) Hx of esophagogastroduodenoscopy (Resolved 2007) Hx of tonsillectomy (Resolved) Medical History (Last Reviewed 12/13/19 @ 23:43 by SUKHI Delarosa) Actinic keratosis (Chronic) Chicken pox (Resolved ~1950) Chronic back pain (Chronic 1975) Dysphagia (Chronic) Esophageal motility disorder (Chronic) GERD (gastroesophageal reflux disease) (Chronic) Hayfever (Chronic) [place] (hard of hearing) (Chronic 1999) Hyperlipidemia (Chronic) Knee pain, bilateral (Chronic 1997) Measles (Resolved 1954) Nocturia (Chronic) Osteoarthritis (Chronic) Primary osteoarthritis of both knees (Chronic 03/13/17) Sleep apnea (Chronic) Urticaria (Chronic) Wears hearing aid in both ears (Chronic 2014) Zenker diverticulum (Chronic) Physical Therapy Inpatient Evaluation/Re-Eval M1 PT/OT-IP Prior Functional Status Start: 12/14/19 13:11 Freq: NEEDED Status: Active Protocol: Document 12/14/19 14:49 (Rec: 12/14/19 15:28 [id number]) Medical Review Prior Functional Status Medical History Reviewed Yes Communication able to make needs need. No deficits noted. Mobility and Gait Independent for all mobility without AD. Pt is very active and like to hike and kayaking. Activities of Daily Living and IADL's independent for all ADLs and IADLs without AD Social History Household Members significant other Living Arrangements House Number of Floors (Floors) Two Floors Number of Stairs To Enter/Railing? 2 LORENZO to front entrance w/o rails pt's bedroom and bathroom are on 2nd floor with 14 steps , rail on L side Home Environment Standard Height Toilet,Walk in Shower,Tub/Shower Employment Status Self-Employed Additional Social History Comment Pt lives with his significant other Beverly in [place]. Has a son lives in [place] and a dtr in [place]. M2 PT-IP Current Condition Start: 12/14/19 13:11 Freq: NEEDED Status: Active Protocol: Document 12/14/19 14:49 HH (Rec: 12/14/19 15:28 [email or web address]) Physical Therapy Current Condition Current Condition Evaluation Date 12/14/19 Treatment Diagnosis Acute Lacunar Infarct, L sided weakness (UE>LE) Onset Date 12/13/19 Weight Bearing Status Weight Bearing Status Full Weight Bearing M3 PT-IP Subjective Start: 12/14/19 13:11 Freq: NEEDED Status: Active Protocol: Document 12/14/19 14:49 HH (Rec: 12/14/19 15:28 [id number]) Subjective Physical Therapy Visit Type Type Initial Evaluation Visit Start Time 14:04 Visit Stop Time 14:40 Total Visit Minutes 36 Notes Significant other Beverly at bedside. Number of [employer]CIAL DEVELOPER Visits 0 Physical Therapy Visit Comments Patient Comments Im doing better than yesterday. I was able to walk to the bathroom but felt like wobbly. Patient Goals To regain his strength and ROM and return home. Therapy Pain Assessment Pain Present Pain Present Denied Pain M4 PT-IP Mobility and Gait Start: 12/14/19 13:11 Freq: NEEDED Status: Active Protocol: Document 12/14/19 14:49 HH (Rec: 12/14/19 15:28 [email or web address]) PT-Bed Mobility Assessment Supine to Sit Supine to Sit Independent Sit to Supine Sit to Supine Independent Scooting Scooting to Edge of Bed Independent PT-Transfer Assessment Sit to and From Stand Sit to and from Stand Standby Assistance,Use of Upper Extremities Equipment Transfer Assistive Device Gait Belt Orthotic/Prosthetic Devices or Brace: No Transfers Transfer Destination Bed Transfer Technique none Transfer Ability Level of Assist Standby Assistance,Use of Upper Extremities Comments Mobility Comments Pt just got back to bed after using bathroom with PROGRAM ATTENDANT upon PT arrival. (significant other at bedside) PROGRAM ATTENDANT reported pt with a wobbly gait w/o AD. BP at 141/81. Pt agreed to mobilize with PT. Pt completed supine to sit at L EOB for neuro assessment independently . Pt was able to sit independently without support for 15 mins. He then stood up with SBA and proceed to amb to hallway without AD. Pt amb with a +ve trendelenburg sign on L , along with noticeable harder step with poor eccentric loading during initial contact and loarding response on L LE. Pt completed approx 200 ft in the hallway but his ataxic gait worsened as distance increases. He stated My L leg feels like a bit weaker and possibly buckle . However, pt amb safely and returned back to bed with SBA. BP at 162/79 and took 2 mins to reach 143/78. Pt denies any discomfort. Call light placed within reach. Educated pt's SO to bring hiking sticks for pt's mobility. Gait Assessment Gait Gait Assistance Required: Standby Assistance Distance (Feet) 200 Able to Maintain Weight Bearing Status Yes During Gait Assistive Devices Assistive Device Gait Belt Orthotic/Prosthetic Devices or Brace: No Gait Deviations General Gait Pattern Ataxic,Decreased Stride Length ,Decreased Feet Clearance, Lateral Trunk Lean Factors Limiting Gait Function Factors Limiting Gait Function Decreased Activity Tolerance, Decreased Strength,Limited Range of Motion,Poor Balance Comments Gait Comments check mobility comments. Stair Climbing Assessment Evaluation Level of Assist On Stairs Standby Assistance Devices Stair Climbing Assistive Devices Left Railing Technique/Endurance Stair Climbing Direction Ascend and Descend Stair Climbing Technique Step Over Step Number of Steps Climbed 10 Query Text: Stair Climbing Set # Repetitions (reps) 2 Comments Stair Climbing Comments pt used step over pattern for descend with R rail. He stated his LLE feels like weak and unstable during WB He was able to use step over pattern without railing to ascend. PT-Balance Assessment Sitting Balance and Reactions Static Sitting Balance Ability Normal Dynamic Sitting Balance Ability Normal Standing Balance and Reactions Static Standing Balance Ability Normal Dynamic Standing Balance Ability Good Device Used none M5 PT-IP Objective Assessments Start: 12/14/19 13:11 Freq: NEEDED Status: Active Protocol: Document 12/14/19 14:49 (Rec: 12/14/19 15:28 [email or web address]) Orientation Orientation/Cognition Level of Alertness Alert Orientation Name,Age,Birthday,Month,Date, Year,Day of Week,Place, Situation Language Function Ability No Deficits Noted Safety Awareness Understands Safety Issues Memory Description No Deficits Noted Gross Range of Motion Upper Extremity ROM Assessment Left Impaired Impairments flexion, abduction approx 140 degrees but increased time taken limited wrist flexion, extension and ulnar/ radial deviation d/t pain who believes he has arthritis. Pt overall needed slight increased time to complete motor tasks. Lower Extremity ROM Assessment Within Functional Limits Strength Upper Extremity Strength Assessment Left Impaired Shoulder 3- Elbow 4- Wrist 3+ Hand 3+ Lower Extremity Strength Assessment Left Impaired Hip 4 Knee 4 Ankle 4 Comments Strength Comments weakness noted on L side (UE worse than LE) Coordination Assessment Gross Coordination Gross Coordination Impaired Assessment Finger to Nose Test Minimal Impairment Pronation/Supination Test Minimal Impairment Foot Tapping Test Minimal Impairment Heel on Stephen Test Minimal Impairment Coordination Comments pt showed increased time taken to complete all coordination tasks with WFL accuracy. opposition test= increased time taken but intact with accuracy Sensation Assessment Sensation Gross Sensation WNL Light Touch Intact Proprioception (Position) Intact Comments Sensation Comments no sensation loss noted Muscle Tone Muscle Tone WNL Yes Muscle Tone Location Left Upper Extremity Type of Tone Hypotonicity Comments Muscle Tone Comments slightly hypotonic than RUE Other Assessments Other Other Assessments saccade, pursuit eyes test= intact VOR = intact reflexes= intact bilaterally. Marching in place= excessive lateral trunk lean noted with hard step on L. Pt did not lose balance but stated L LE is slightly weaker M6 PT-IP Treatment Start: 12/14/19 13:11 Freq: NEEDED Status: Active Protocol: Document 12/14/19 14:49 HH (Rec: 12/14/19 15:28 [email or web address]) Physical Therapy Treatment Exercises Exercises Ankle Pumps,Gluteal Sets,Quad Sets,Shoulder Flexion,Elbow Flexion/Extension,Wrist ROM, Hand ROM Education Education Provided Safety M7 PT-IP Assessment and Plan Start: 12/14/19 13:11 Freq: NEEDED Status: Active Protocol: Document 12/14/19 14:49 (Rec: 12/14/19 15:28 [email or web address]) PT Summary Assessment and Plan Potential Rehabilitation Potential Excellent Status of Condition at Evaluation Evolving Summary Impairments Pain,ROM,Strength,Balance, Coordination,Tone,Bed Mobility ,Transfers,Gait,Activity Tolerance Assessment Summary This is a low complexity evaluation for this 74yo male admitted to ER with acute lacunar infarct involving the posterior right frontal subcortical white matter and the right parietal cortical warren matter from MRI. Upon assessment, pt is evolving and has improved since admission. There's noticeable mild gross and fine motor control loss ( UE worse than LE) , along with balance. No deficits noted for reflex, vestibular, vision , sensation. His BP did went up from 140s/80s to 160s/70s. And his ataxic gait worsen with amb distance increase. Recommended his S.O. to bring hiking sticks for pt's mobility. At this point, pt will be able to d/c home with S.O. assistance as needed and would benefit from outpatient therapy to address aforementioned impairment to regain his strength,mobility and balance. Goals Bed Mobility Goal Independent Transfer Goal Independent Gait Goal Independent Other Goals with hiking sticks if needed ROM, and strengthening ex for both UE and LE. Days to Meet Goals 3 Frequency of Treatment Frequency Of Treatment Once a Day Treatment Plan Physical Therapy Treatment Plan Bed Mobility Training,Transfer Training,Gait Training, Therapeutic Exercise,Balance Retraining,Discharge Planning, Neuromuscular Re-ed, Coordination Retraining Other Recommendations and Next Treatment check vitals Focus gait trainingwith hiking sticks if needed ROM, and strengthening ex for both UE and LE. Recommendations To Nursing Amount of Assist Needed Standby Assistance Discharge Recommendations PT Discharge Recommendations Home with Assistance, Outpatient PT Transportation Needs at Discharge Private Vehicle
--- NOTE | 2019-12-14 17:00 | OT.IP.EVAL ---
Past Medical History (Last Reviewed 12/13/19 @ 23:43 by SUKHI Delarosa) Actinic keratosis (Chronic) Chicken pox (Resolved ~1950) Chronic back pain (Chronic 1975) Dysphagia (Chronic) Esophageal motility disorder (Chronic) GERD (gastroesophageal reflux disease) (Chronic) Hayfever (Chronic) [place] (hard of hearing) (Chronic 1999) Hyperlipidemia (Chronic) Knee pain, bilateral (Chronic 1997) Measles (Resolved 1954) Nocturia (Chronic) Osteoarthritis (Chronic) Primary osteoarthritis of both knees (Chronic 03/13/17) Sleep apnea (Chronic) Urticaria (Chronic) Wears hearing aid in both ears (Chronic 2014) Zenker diverticulum (Chronic) 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 No deficits noted. Mobility and Gait Independent for all mobility without AD. Pt is very active and like to hike and kayaking. Activities of Daily Living and IADL's independent for all ADLs and IADLs without AD Social History Household Members significant other Living Arrangements House Number of Floors (Floors) Two Floors Number of Stairs To Enter/Railing? 2 LORENZO to front entrance w/o rails pt's bedroom and bathroom are on 2nd floor with 14 steps , rail on L side Home Environment Standard Height Toilet,Walk in Shower,Tub/Shower Employment Status Self-Employed Additional Social History Comment Pt lives with his significant other Beverly in [place]. Has a son lives in [place] and a dtr in [place]. M2 OT-IP Current Condition Start: 12/14/19 18:08 Freq: Status: Active Protocol: Document 12/14/19 16:05 [facility] (Rec: 12/14/19 18:41 [facility] [id number]) Occupational Therapy Current Condition Current Condition Evaluation Date 12/14/19 Treatment Diagnosis Right parietal and frontal CVA Diagnosis Onset Date 12/13/19 M3 OT- IP Subjective and Pain Start: 12/14/19 18:08 Freq: Status: Active Protocol: Document 12/14/19 16:05 [facility] (Rec: 12/14/19 18:41 [facility] [id number]) OT- Subjective Occupational Therapy Visit Type Type Initial Evaluation Visit Start Time 16:05 Visit Stop Time 17:00 Total Visit Minutes 55 Occupational Therapy Visit Comments Patient Comments Pt open to doing OT eval. Patient/Caregiver Goals To go home when stable. OT Pain Assessment Pain When Pain Assessed At Rest Pain Present Pain Present Denied Pain M4 OT- IP ADL's Start: 12/14/19 18:08 Freq: Status: Active Protocol: Document 12/14/19 16:05 [facility] (Rec: 12/14/19 18:41 [facility] [id number]) OT [id number] Comments OT Self-Feeding Comments Not at meal time. OT ADL-Grooming Comments OT Grooming Comments Not performed. OT ADL-Dressing General Eval Lower Body Dressing Ability Standby Assistance Comments OT Dressing Comments Pt mostly use of right hand to shanthi/doff socks due to weakness of left hand to be able to assist much to help open the sock and grasp onto it. OT ADL-Toileting General Evaluation Toileting Ability Standby Assistance Comments OT Toileting Comments Distant SBA, pt able to sit to urinate on toilet. OT ADL-Bathing Comments OT Bathing Comments Not at this time. M5 OT- IP IADL's Start: 12/14/19 18:08 Freq: Status: Active Protocol: Document 12/14/19 16:05 [facility] (Rec: 12/14/19 18:41 [facility] [id number]) OT-Instrumental Activities of Daily Living Home Safety Awareness Awareness of Need for Assistance at Home Good Awareness Ability to Problem Solve Emergency Able to Problem Solve Situations Medication Management Medication Management Comments At this time would be beneficial for significant other to provide supervision for needs initially. Money Management Money Management Comments At this time would be beneficial for significant other to provide supervision for needs initially. Meal Preparation Meal Preparation Comments At this time would be beneficial for significant other to provide supervision for needs initially. Surplus Property Disposal Agent Surplus Property Disposal Agent Comments At this time would be beneficial for significant other to provide supervision for needs initially. Driving Driving Comments Recommend initially to have significant other be with him if wanting to drive. M6 OT- IP Functional Cognition Start: 12/14/19 18:08 Freq: Status: Active Protocol: Document 12/14/19 16:05 [facility] (Rec: 12/14/19 18:41 [facility] [id number]) Cognitive Factors Limiting Selfcare Function Cognitive Ability Level of Alertness Alert Patient Orientation Name,Age,Birthday,Month,Date, Year,Day of Week,Place, Situation Attention Span Ability Capable of Focused Attention, Capable of Sustained Attention Ability to Follow Commands Able to Follow Multi-Step Commands Memory Description No Deficits Noted Safety Awareness No Deficits Noted Problem Solving Ability No deficits Noted Executive Function Ability No Deficits Noted Cognitive Comments Cognitive Assessment Comments Pt appears close to baseline and pt notes feels just a bit slower when doing Chambers Making Part B assessment. Pt's score of 82 seconds is a normal but not perfect score which implies normal but not perfect for speed of processing, mental flexibility , visual attention, task switching, and executive thinking. OT- Vision and Hearing OT- Hearing Assessment OT- Hearing Assessment WFL OT- Vision Assessment Visual Acuity Glasses For Reading Occular Pursuits WFL Visual Convergence WFL Visual Li WFL Diplopia Absent Visual Spacial Neglect Not Applicable M7 OT- IP Mobility and Balance Start: 12/14/19 18:08 Freq: Status: Active Protocol: Document 12/14/19 16:05 [facility] (Rec: 12/14/19 18:41 [facility] [id number]) OT- Bed Mobility Assessment Rolling Type of Rolling Bilateral Level of Assistance Independent Supine to Sit Supine to Sit Assist Independent Sit to Supine Sit to Supine Assist Independent Scooting Scooting to Edge of Bed Independent OT-Transfer Assessment Sit to and From Stand Sit to and from Stand Independent Transfers Transfer Ability Independent,Standby Assistance Technique Transfer Destination Bed,Chair,Toilet Transfer Technique Stand Step Pivot Devices Transfer Assistive Devices None,Gait Belt Comments Mobility Comments Pt able independently transfer from bed ,chair, and toilet. Pt needing distant SBA when picking up item from the floor , and able to climb up the bench seating to be able to sit on the window sill. Pt having difficulty with right hand due to IV at elbow and decreased AROm in wrist when coming down via lowering himself with his arms from the window sill to bench area but able to do on his own. Pt states notes that he has been having more difficulty recently to be able to boost himself into a kayak from the water. Pt states has been sleeping on his sides to prevent from snoring. Educated pt to try to position himself so not directly putting his weight on his shoulder and possible cause nerve impingement, therefore to sleep with a pillow behind him for support and also to be mindful not to have his shoulder compressed have the weight more distributed towards his back. OT- Gait Assessment Comments Gait Ability Comments Distant SBA in the room. OT- Balance Assessment Sitting Balance and Reactions Static Sitting Balance Ability Normal Dynamic Sitting Balance Ability Normal Standing Balance and Reactions Static Standing Balance Ability Good M8 OT- IP Objective Assessments Start: 12/14/19 18:08 Freq: Status: Active Protocol: Document 12/14/19 16:05 [facility] (Rec: 12/14/19 18:41 [facility] [id number]) OT Gross Range of Motion Upper Extremity Range of Motion Assessment Left Impaired ROM Impairments Decreased AROM in wrist and fingers due to swelling and weakness. Noted mild tightness in right internal rotators and educated pt to stretch while in supine. OT Strength Upper Extremity Strength Shoulder 3- Elbow 4- Wrist 3- Hand 3 OT- Coordination Assessment Upper Extremity Finger to Nose Test Within Functional Limits Comments Coordination Comments 9 hole Peg hand test right hand 28 seconds and for left hand 48seconds. Noted increased timed for left hand due to weakness and motor planning to be able to hand picker the pegs. Pt able to hand picker coins with left hand with increased time but has trouble wit in hand manipulation of items. OT-Muscle Tone Assessment Muscle Tone WNL Yes OT Sensation Assessment Location Left Wrist Light Touch Intact/Normal Deep Pressure Intact/Normal Proprioception (Position) Impaired Left Hand Light Touch Intact/Normal Deep Pressure Intact/Normal Proprioception (Position) Impaired Stereognosis Intact/Normal M9 OT- IP Assessment and Plan Start: 12/14/19 18:08 Freq: Status: Active Protocol: Document 12/14/19 16:05 [facility] (Rec: 12/14/19 18:41 [facility] [id number]) OT Summary Assessment and Plan Potential Rehabilitation Potential Good Analytic Complexity at Evaluation Low Summary OT Impairments Range of Motion,Balance, Coordination,Functional Mobility,Dressing,Bathing, Shower Transfers,Activity Tolerance Progress Towards Goals Progressing Toward Goals Assessment Summary Pt low complexity due small lacunar infarcts to right frontal and parietal subcortical white matter and main barrier is decreased left hand coordination, strength, and slightly decreased for dynamic standing balance needs as well. Pt feels slightly off for his cognitive abilities and scored normal but not perfect on [place] Making Part B which assesses speed of processing, mental flexibility, visual attention, task switching, and executive thinking. Pt states prior that he has had progrerssive weakness to his left hand and prior to Covid 19 been seeing a hand therapist at [facility]. Recommend for pt to see hand therapist and also hand specialist to best help determine the cause of his left hand weakness, swelling, and decreased control for fine motor skills. Goals Self-Feeding Goal Independent Grooming Goal Independent Dressing Goal Independent Toileting Goal Independent Bathing Goal Independent Toilet Transfer Goal Independent Shower Transfer Goal Independent Patient/Caregiver Education Goal Caregiver Independent Assisting Patient OT-Other Goals Pt to be able to have good demonstration for gentle stretching of internal rotators and for FMS. Days to Meet Goals 2 Frequency of Treatment Frequency Of Treatment Once a Day Treatment Plan OT Treatment Plan ADL Training,Functional Mobility,Therapeutic Exercises ,Patient/Family Education, Discharge Planning Other Treatment Recommendations and Next Shower, FMS Treatment Focus Discharge Recommendations OT Discharge Recommendations Home with Assistance Other Discharge Recommendations Recommend hand therapy Transportation Needs at Discharge Private Vehicle
[2019-12-14] MEDS: CLOPIDOGREL 75 MG TABLET PO (17:13)
[2019-12-14] MEDS: ATORVASTATIN 20 MG TABLET 40 MG PO (20:50)
--- NOTE | 2019-12-14 23:57 | PC.NURSE ---
Patient is alert and oriented. NIH 1 for slight loss of sensation in left LE. Also has some weakness in left external grinder tool and left LE strength. Breath sounds CTA with RA sat of 95%. 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 Denies nausea. BT present and abdomen is soft. Voiding per urinal in bathroom; denies dysuria, frequency or urgency. Able to turn himself in bed and gets up with SBA for safety. Agreeable to having bilateral calf SCD's applied at this time. Denies pain. CBG 125. Fall risk score is moderate; bed alarm is activated.
[2019-12-15 05:00] VITALS: BP 133/77; PULSE 55; RESP 18; TEMP 36.2; O2SAT 96
[2019-12-15] MEDS: CLOPIDOGREL 75 MG TABLET PO (08:54)
[2019-12-15] MEDS: SODIUM CHLORIDE 0.9% FLUSH 10 ML IV (08:55)
[2019-12-15] MEDS: ASPIRIN EC 81 MG TABLET PO (08:55)
[2019-12-15 09:00] VITALS: BP 120/69; PULSE 54; RESP 16; TEMP 36.2; O2SAT 93
--- NOTE | 2019-12-15 10:01 | OT.IP.TRT ---
Occupational Therapy Treatment Note M2 OT-IP Current Condition Start: 12/14/19 18:08 Freq: Status: Active Protocol: Document 12/14/19 16:05 [facility] (Rec: 12/14/19 18:41 [facility] [id number]) Occupational Therapy Current Condition Current Condition Evaluation Date 12/14/19 Treatment Diagnosis Right parietal and frontal CVA Diagnosis Onset Date 12/13/19 M3 OT- IP Subjective and Pain Start: 12/14/19 18:08 Freq: Status: Active Protocol: Document 12/15/19 10:22 [facility] (Rec: 12/15/19 10:32 [facility] [email or web address]) OT- Subjective Occupational Therapy Visit Type Type Treatment Note Visit Start Time 09:43 Visit Stop Time 10:01 Total Visit Minutes 18 Occupational Therapy Visit Comments Patient Comments Pt wanting to shower at home . Patient/Caregiver Goals To go home. OT Pain Assessment Pain When Pain Assessed At Rest Pain Present Pain Present Denied Pain . OT- Coordination Assessment Comments Coordination Comments 9 Hole Peg hand Test right hand 28 seconds and leeft hand improved by 11 seconds to 37 seconds. Pt still feeling like his fingers are weak. Suggested exercises/activities that pt can do at home especially for in hand manipulation needs. M9 OT- IP Assessment and Plan Start: 12/14/19 18:08 Freq: Status: Active Protocol: Document 12/15/19 10:22 [facility] (Rec: 12/15/19 10:32 [facility] [email or web address]) OT Summary Assessment and Plan Potential Rehabilitation Potential Good Analytic Complexity at Evaluation Low Summary OT Impairments Range of Motion,Strength, Coordination,Bathing,Shower Transfers,Activity Tolerance Progress Towards Goals Progressing Toward Goals Assessment Summary Pt much improved for FMS for left hand and able to improve 11 seconds on 9 Hole Peg hand test from 48seconds down to 37 seconds. Pt given PVC frame to help stretch his right internal rotators to increased AROm and strength for LUE. Pt states able to be mindful of his sleeping position did not sleep on his left shoulder last night. Pt to go home with S.O to assist as needed. Pt would benefit form hand therapy to continue to work on FMS, smoothness of movement and strength for LUE. Discharge Recommendations OT Discharge Recommendations Home with Assistance Other Discharge Recommendations Recommend hand therapy Transportation Needs at Discharge Private Vehicle
--- NOTE | 2019-12-15 11:01 | PT.IPTN ---
Physical Therapy Treatment Note M2 PT-IP Current Condition Start: 12/14/19 13:11 Freq: NEEDED Status: Active Protocol: Document 12/14/19 14:49 [facility] (Rec: 12/14/19 15:28 [facility] [email or web address]) Physical Therapy Current Condition Current Condition Evaluation Date 12/14/19 Treatment Diagnosis Acute Lacunar Infarct, L sided weakness (UE>LE) Onset Date 12/13/19 Weight Bearing Status Weight Bearing Status Full Weight Bearing M3 PT-IP Subjective Start: 12/14/19 13:11 Freq: NEEDED Status: Active Protocol: Document 12/15/19 10:23 [facility] (Rec: 12/15/19 12:46 [facility] [email or web address]) Subjective Physical Therapy Visit Type Type Treatment Note Visit Start Time 10:23 Visit Stop Time 11:01 Total Visit Minutes 38 Notes STRUCTURES ENGINEER student Irasema attended and instructed with balance assessment activities. Number of STRUCTURES ENGINEER Visits 1 Physical Therapy Visit Comments Patient Comments My left leg still feels little off. Patient Goals To regain his strength and ROM and return home with SO to assist him as needed. Therapy Pain Assessment Pain Present Pain Present Denied Pain M4 PT-IP Mobility and Gait Start: 12/14/19 13:11 Freq: NEEDED Status: Active Protocol: Document 12/15/19 10:23 [facility] (Rec: 12/15/19 12:46 [facility] [email or web address]) PT-Bed Mobility Assessment Supine to Sit Supine to Sit Independent Sit to Supine Sit to Supine Independent Scooting Scooting to Edge of Bed Independent Scooting Up and Down in Bed Standby Assistance PT-Transfer Assessment Sit to and From Stand Sit to and from Stand Standby Assistance,Use of Upper Extremities Equipment Transfer Assistive Device None,Gait Belt Orthotic/Prosthetic Devices or Brace: No Transfers Transfer Destination Bed,Toilet Transfer Technique pt ambulated with no AD room distances Transfer Ability Level of Assist Standby Assistance,Use of Upper Extremities Comments Mobility Comments Pt was reclined in bed when arrived. STRUCTURES ENGINEER assessed positional vitals: supine BP 148/79 HR 62 SaO2 96% RA, seated after 1 min 144/80 HR 66 SaO2 95%, standing after 1 min 149/88 with no dizziness/ lightedness/concerns. Supine<> sitting and scoot to EOB I, sit to stand with GB donned SBA with no AD using BUE pushing from bed. Pt tends to lean forward and lateral shift to R improved with cuing for upright posture. Pt ambulated SBA with no AD, cued for slower pacing and slow muscular control L hip flexion advancement of LLE, then slow eccentric control of heel strike into PF, improved with cuing awareness. Assessed use of SPC, required same cuing LLE, recommending using his walking sticks longer distances no further than 1 mile with SO for safety. Pt has walking sticks uses longer distance at home when needed for endurance and incline hiking assist. Pt walked further in hallway today approx 424ft total SBA (212ft no AD, 212ft SPC), improved upright posture and decreased trendelenburg gait as distance progressed. Ascend reciprocal patterning LEs/descend 3 stairs receiprocal and step to patterning with demonstrated heavy LLE eccentric land using no AD x2 sets, SPC x2 sets with little improvement with cuing for slower pacing LLE slower controlled descent. Pt was able to complete, per his request, deep double leg squat when at bottom of the stairs, SBA with no UE support required x2 reps. When returned to room assessed static balance: see details. STRUCTURES ENGINEER student instructed LE HEP can perform at home: seated LAQ ( can add ankle wt at home ), supine SLR withcuing required for quad facilitation to maintain knee extension more during eccentric hip flexion than concentric muscular control, tires at about rep 5. Pt's SO arrived at end of tx, discussed progress made during tx and use of walking sticks during long distance gait < 1 mile and on stairs with safety SBA. Education provided for keeping a log for BP assessments early am, after activity then again after 5 min rest for safety keeping BP in normal range. Recommending outpatient therapy for LE strength, balance toward personal goals of hiking longer distance again, pt will call to set up. Pt was reclined in bed with call light and all needs in reach, SO in room when left. STRUCTURES ENGINEER discussed progress with hospitalist and nursing, pt is appropriate to DC with assist of SO at home when medically stable. Gait Assessment Gait Gait Assistance Required: Standby Assistance Distance (Feet) 424 Able to Maintain Weight Bearing Status Yes During Gait Assistive Devices Assistive Device None,Gait Belt,Straight Cane Orthotic/Prosthetic Devices or Brace: No Gait Deviations General Gait Pattern Antalgic,Decreased Stride Length,Decreased Feet Clearance,Lateral Trunk Lean Factors Limiting Gait Function Factors Limiting Gait Function Decreased Activity Tolerance, Decreased Strength,Limited Range of Motion,Poor Balance Comments Gait Comments See mobility comments Stair Climbing Assessment Evaluation Level of Assist On Stairs Standby Assistance Devices Stair Climbing Assistive Devices None,Straight Cane Technique/Endurance Stair Climbing Direction Ascend and Descend Stair Climbing Technique Step Over Step Number of Steps Climbed 3 Stair Climbing Set # Repetitions (reps) 4 Comments Stair Climbing Comments see mobility comments PT-Balance Assessment Sitting Balance and Reactions Static Sitting Balance Ability Normal Dynamic Sitting Balance Ability Normal Standing Balance and Reactions Static Standing Balance Ability Good Dynamic Standing Balance Ability Good Device Used none, SPC Functional Assessments Other Functional Tests Performed CGA provided during: SLS approx 3 sec L, 4 sec R; NBOS feet together head turns/ EC 10 sec, tandem head turns and assess EC LOBx3 to R requiring BUE support on FWW so stopped . Out pt PT: recommend continue standing static and dynamic balance for safety personal goal hiking again uneven terrain with no AD. M5 PT-IP Objective Assessments Start: 12/14/19 13:11 Freq: NEEDED Status: Active Protocol: Document 12/14/19 14:49 (Rec: 12/14/19 15:28 [email or web address]) Orientation Orientation/Cognition Level of Alertness Alert Orientation Name,Age,Birthday,Month,Date, Year,Day of Week,Place, Situation Language Function Ability No Deficits Noted Safety Awareness Understands Safety Issues Memory Description No Deficits Noted Gross Range of Motion Upper Extremity ROM Assessment Left Impaired Impairments flexion, abduction approx 140 degrees but increased time taken limited wrist flexion, extension and ulnar/ radial deviation d/t pain who believes he has arthritis. Pt overall needed slight increased time to complete motor tasks. Lower Extremity ROM Assessment Within Functional Limits Strength Upper Extremity Strength Assessment Left Impaired Shoulder 3- Elbow 4- Wrist 3+ Hand 3+ Lower Extremity Strength Assessment Left Impaired Hip 4 Knee 4 Ankle 4 Comments Strength Comments weakness noted on L side (UE worse than LE) Coordination Assessment Gross Coordination Gross Coordination Impaired Assessment Finger to Nose Test Minimal Impairment Pronation/Supination Test Minimal Impairment Foot Tapping Test Minimal Impairment Heel on Stephen Test Minimal Impairment Coordination Comments pt showed increased time taken to complete all coordination tasks with WFL accuracy. opposition test= increased time taken but intact with accuracy Sensation Assessment Sensation Gross Sensation WNL Light Touch Intact Proprioception (Position) Intact Comments Sensation Comments no sensation loss noted Muscle Tone Muscle Tone WNL Yes Muscle Tone Location Left Upper Extremity Type of Tone Hypotonicity Comments Muscle Tone Comments slightly hypotonic than RUE Other Assessments Other Other Assessments saccade, pursuit eyes test= intact VOR = intact reflexes= intact bilaterally. Marching in place= excessive lateral trunk lean noted with hard step on L. Pt did not lose balance but stated L LE is slightly weaker M6 PT-IP Treatment Start: 12/14/19 13:11 Freq: NEEDED Status: Active Protocol: Document 12/15/19 10:23 [facility] (Rec: 12/15/19 12:46 SP [email or web address]) Physical Therapy Treatment Exercises Exercises Gluteal Sets,Quad Sets, Straight Leg Raises,Seated Knee Flexion/Extension Education Education Provided Safety M7 PT-IP Assessment and Plan Start: 12/14/19 13:11 Freq: NEEDED Status: Active Protocol: Document 12/15/19 10:23 [facility] (Rec: 12/15/19 12:46 [facility] [email or web address]) PT Summary Assessment and Plan Potential Rehabilitation Potential Excellent Status of Condition at Evaluation Evolving Summary Impairments Pain,ROM,Strength,Balance, Coordination,Tone,Bed Mobility ,Transfers,Gait,Activity Tolerance Assessment Summary Pt I during bed mobility, SBA during sit<>stand and gait w/ without AD/SPC, stairs SPC RUE SBA. See mobilit comments for details. Static NBOS SBA, tandem LOB x3 and self recovery on FWW CGA. STRUCTURES ENGINEER recommended distance gait level surfaces < 1 mile with stick and SO attended for safety. Improved at this point , pt will be able to d/c home with S.O. assistance as needed and would benefit from outpatient therapy to address aforementioned impairment to regain his strength, mobility and balance. Goals Bed Mobility Goal Independent Transfer Goal Independent Gait Goal Independent Other Goals with hiking sticks if needed ROM, and strengthening ex for both UE and LE. Days to Meet Goals 3 Frequency of Treatment Frequency Of Treatment Once a Day Treatment Plan Physical Therapy Treatment Plan Bed Mobility Training,Transfer Training,Gait Training, Therapeutic Exercise,Balance Retraining,Discharge Planning, Neuromuscular Re-ed, Coordination Retraining Other Recommendations and Next Treatment check vitals Focus gait trainingwith hiking sticks if needed ROM, and strengthening ex for both UE and LE. Recommendations To Nursing Amount of Assist Needed Standby Assistance Discharge Recommendations PT Discharge Recommendations Home with Assistance, Outpatient PT Transportation Needs at Discharge Private Vehicle
--- NOTE | 2019-12-15 11:29 | P.DS_ITS ---
History of Present Illness History of Present Illness Date Patient Seen: 12/13/19 Chief complaint: Weakness in Left Arm Down To Left Leg Narrative: Written by Shawna ISBELL: Matias Lucero is a 74 y.o. male with hyperlipidemia was in his usual state of health when he was out hiking with a friend today and felt sudden onset left- sided weakness that started in his upper left arm and then extended down to his left leg. He does endorse having weakness in his left hand that is chronic and persistently his middle finger is swollen due to what he believes is arthritis. Denies fevers sweats or chills, shortness of breath, chest pain, nausea vomiting, dysuria, incontinence of bowel and bladder, diarrhea or constipation, or changes in mentation. Per the emergency department, the patient was evaluated by the tele stroke service and he was determined not to meet criteria for anti thrombolytics and they recommended that he be observed overnight and undergo a head MRI and echocardiogram. CT of the brain was negative for an acute intracranial process, CT angio of the head neck indicated No hemodynamically significant stenosis of the major intracranial or extracranial arterial vasculature. Normal variant hypoplastic city of the right vertebral artery and diminutive right V4 segment which likely terminates in PICA and contributes very little to the basilar artery. Persistent origin of the left posterior cerebral artery, an additional normal variant. Temp is 97, blood pressure 128/75, heart rate 73, respiratory rate 19, oxygen saturation 97% on room air, he weighs 102 kg and has a BMI of 31.4. WBC is 8.5 RBC 5.12 hemoglobin 15.2 hematocrit 45.1,platelet count 187, sodium 137, potassium 4.4, chloride 106, CO2 24, creatinine 1.06, BUN 26, GFR greater than 60, glucose 112, calcium 8.9, CK-MB is 3.04, troponin 0.12, COVID-19 negative, hemoglobin A1c is 6.5% Discharge Providers Provider Date of admission: 12/13/19 18:34 Discharge Date: 12/15/19 Primary care physician: Shane Whitman MD Consults: 12/13/19 21:07 Consult to Occupational Therapy Evaluate & Treat Comment: Physician Instructions: Evaluate and treat Consult to Physical Therapy Evaluate & Treat Comment: Physician Instructions: Evaluate and Treat 12/15/19 11:21 Consult to Dietitian, Adult Stat Comment: Reason For Exam: Diabetic Discharge provider: Emmy Mathis DO Summary Hospital Course Discharge Diagnosis: 1. Acute CVAs, right frontal and right parietal areas, present on admission. Active. 2. Diabetes mellitus type 2, new diagnosis but likely chronic, present on admission. Stable. 3. Hyperlipidemia, chronic, present on admission. Stable. 4. Incidental indeterminate pulmonary nodules evident on CT. Hospital Course: Matias Lucero is a 74-year-old male with a past medical history significant for hyperlipidemia who presented to the ED with sudden onset of left-sided weakness. 1. Acute CVAs, right frontal and right parietal areas, present on admission. Active. -Patient presented with sudden onset left-sided weakness. -NIH score 1. Continue to monitor neurological status frequently. -EKG demonstrated sinus rhythm without acute ischemic changes such as ST elevation or depression.. Continue to monitor closely on telemetry. Patient remained in sinus rhythm/sinus bradycardia throughout entire hospitalization without any evidence of arrhythmia. Recommend heart monitor as patient had 2 different areas with multiple small infarcts. -CT brain without contrast did not demonstrate any acute intracranial abnormalities. -CTA head neck did not demonstrate any hemodynamically significant stenosis of the major intracranial or extracranial arterial vasculature. Normal variant hypoplasticity of the right vertebral artery and diminutive right V4 segment which likely terminates in PICA and contributes very little to the basilar artery. Persistent origin of the left posterior cerebral artery, an additional normal variant. -MR stroke protocol demonstrated small, acute lunar infarcts involving the posterior right frontal subcortical white matter and the right parietal cortical warren matter. There was also a probable early chronic lacunar infarct involving the left caudate body. There were no significant arterial blockages. -Echocardiogram did not demonstrate any interatrial shunt or embolic source. Grade 1 diastolic dysfunction was noted. -Allowed for permissive hypertension times 24 hours. Patient's blood pressure normalized and no interventions required. Patient does note that he has low blood pressures at time and recently hiked 3 miles prior to stroke and some concern for low-pressure state causing hypoperfusion and stroke. Recommend close outpatient monitoring of blood pressure using correct technique. -Risk stratified with fasting lipid panel which demonstrated fair lipid control with: Total cholesterol 138, triglycerides 127, LDL 81 (goal < 70) and HDL 32 and hemoglobin A1c which was 6.5% indicative of diabetes mellitus type 2 and discussed diagnosis with patient as below. -Received aspirin 324 mg x1 and Plavix 300 mg x 1 in ED. Continue aspirin 81 mg daily for life, Plavix 75 mg daily for at least 3 weeks per PCP, and atorvastatin which was recently decreased as an outpatient and placed the patient back on atorvastatin 40 mg daily at bedtime. If there is evidence of atrial fibrillation on heart monitor would recommend anticoagulation. -Continued physical and occupational therapy evaluation and treatment. Recommend outpatient physical and occupational therapy. 2. Diabetes mellitus type 2, new diagnosis but likely chronic, present on admission. Stable. -Hemoglobin A1c 6.5%. -Previous provider counseled on dietary interventions and a need for three-month follow-up with his PCP. Discussed the possibility of initiation of a medication, however, the patient likes to work on lifestyle modification including: Diet and exercise. May consider starting medication if hemoglobin A1c does not improve or worsens per PCP. -Consulted dietitian and we appreciate her time and recommendations. 3. Hyperlipidemia, chronic, present on admission. Stable. -Fasting lipid panel which demonstrated fair lipid control with: Total cholesterol 138, triglycerides 127, LDL 81 (goal < 70) and HDL 32 -Patient has previously been atorvastatin 40 mg daily at bedtime which was recently decreased as an outpatient. Continued atorvastatin which was increased back to 40 mg daily at bedtime for further stroke prevention and decreased LDL. 4. Incidental indeterminate pulmonary nodules evident on CT. -CT demonstrated multiple bilateral pulmonary nodules, none measuring greater than 7 mm, all indeterminate. Recommended follow-up CT in 6 months per PCP. Exam Vital Signs (past 8 hours): - 12/15/19 05:00 12/15/19 09:00 Temperature 97.1 F L 97.2 F L Pulse Rate 55 L 54 L Respiratory Rate 18 16 Blood Pressure 133/77 120/69 Pulse Oximetry 96 93 Oxygen Delivery Method Room Air Oxygen Flow Rate 0 Narrative Exam Narrative: General: Older gentleman sitting in bed and in no acute distress, well- developed, well-nourished, appropriately interactive. HEENT: Normocephalic, atraumatic. External ears without defect. Pupils equal, round, and reactive to light. Anicteric sclerae, moist conjunctivae, and no lid lag. Oropharynx free of erythema and cobble stoning with moist mucosa. Neck: Supple with full range of motion. No jugular venous distension. No bruits. No lymphadenopathy or thyromegaly. Cardiovascular: Regular rate and rhythm without murmurs, rubs, or gallops appreciated. Pulmonary: Clear to auscultation bilaterally without crackles, wheezes, or rhonchi. Normal respiratory effort with no use of accessory muscles. Abdomen: Soft, bowel sounds present, nontender, nondistended. No hepatospleno megaly or masses appreciated. Extremities: No clubbing, cyanosis, or edema. Skin: Normal temperature, turgor, and texture; no rash, ulcers, or subcutaneous nodules appreciated. Neurological: Cranial nerves grossly intact. Subtle left-sided weakness in upper and lower extremities with +4/5 muscle strength. Normal muscle strength of right upper and lower extremities +5/5. Reflexes, coordination, and sensory function within normal limits. Cerebellar function intact with [id number] and [id number]. Psychiatric: Normal mood and affect. Alert and oriented to person, place, and time. Objective Labs Result Diagrams: 12/14/19 05:13 12/14/19 05:13 Discharge Plan Discharge Plan Patient Disposition: Home Discharge comment: You are being discharged home. You have had several small right-sided strokes. You have been prescribed aspirin 81 mg daily, clopidogrel 75 mg daily and your atorvastatin has been increased from 20 mg to 40 mg daily at bedtime for stroke prevention. Recommend a heart monitor to assure that there was no arrhythmia that provoked stroke as you would need to be on a blood thinner instead of aspirin and Plavix and the heart monitor can be ordered by your PCP. Recommend close monitoring of your blood pressure (2 measurements in the morning and 2 measurements in the evening, each measurement must be 10 minutes apart and make sure to use correct blood pressure technique which is sitting in chair with your back supported, feet planted on the ground, your arm resting on hard surface at the level of your heart and waiting 5 minutes without any activity before measuring) and writing these down in a log and taking them to all doctor's appointment. You are diabetic and recommend lifestyle modification including: Diet (low carb, low fat) and exercise. You may discuss further diabetic treatment if needed with your primary care physician. Please follow-up with your primary care physician, Dr. Whitman, in the next 1 week regarding your hospitalization. Recommend referral to physical and occupational therapy for continued outpatient treatment. Discharge orders & Medications Prescriptions: New clopidogrel 75 mg Tablet 75 mg PO DAILY Qty: 30 RF: 0 aspirin 81 mg Tablet,Delayed Release (Dr/Ec) 81 mg PO DAILY Qty: 30 RF: 0 Continued diclofenac sodium 75 mg tablet,delayed release (DR/EC) 75 mg PO BID Qty: 60 RF: 0 acetaminophen 500 mg Capsule 1,000 mg PO BID RF: 0 Changed atorvastatin 40 mg tablet 40 mg PO HS Qty: 0 RF: 0 Follow up/Referrals: Shane Whitman MD [Primary Care Provider] - 3-5 Days Diet/Activity/Treatments Diet: Carb-consistent/Diabetic, Low-fat, Low-sodium and Low-cholesterol Activity: Activity as tolerated with cane for long distances and physical and occupational therapy Visit Report/Discharge Packet Instructions: The Mediterranean Diet and Good Health, DI for Stroke-Ischemic, DI for Diabetes Type 2, Mediterranean Diet May Reduce the Risk of Stroke in People with High Risk o Visit Report Forms: Patient Portal/API, Stroke Signs & Symptoms Discharge Data Primary Care Provider: Shane Whitman Attending Provider: Eric Martino Admit Date/Time: 12/13/19 18:34 Quality VTE Deep Vein Thrombosis/Pulmonary Embolism Present on Admission: No
--- NOTE | 2019-12-15 12:33 | DIET.PN ---
Dietary Progress Note Assessment: 74y M admitted for weakness in L arm found to have acute CVA and likely new onset DM2 c A1c 6.5 referred to nutrition for DM education. HT: 180.3cm WT: 101kg UBW: 101kg BMI: 31.1 Labs: A1c 6.5 H, PPBG 111 WNL Usual day: B(8am): black coffee c NF yogurt, fruit, and homemade granola L(2pm): leftovers D(6-8pm): flank steak, stir eddy, salads 3d/w pt has ice cream or dessert after dinner Pt is not a snacker, has low intake of ultraprocessed foods. Pt's homemade granola contains several types of whole grains (oats, wheat berries, barley), maple syrup, nuts, seeds, dried fruit. Pt's breakfast likely double or more reccs of 45g CHO and seems a low hanging fruit to reformulate for lower cho content. Nutrition Diagnosis: altered nutrition related laboratory values (A1c) r/t endocrine dysfunction aeb pt FFQ showing high carbohydrate load in morning meal, A1c 6.5, pt reporting being pre-diabetic for several years. Interventions: 1. Discussed current A1c and factors contributing to high value. 2. Problem solved c pt on ways to manage BG includinh overnight fasting, limiting carbs to 45g per meal, continued regular exercise, targeting a 10min walk after meals. 3. Recc pt enroll in DSME when f/u c PCP Antonette pt receptive. Diet Order: CCD3 EER: 45g cho per meal Monitoring/Evaluations: requesting DSME enrollment c f/u Antonette
--- NOTE | 2019-12-15 13:13 | PC.NURSE ---
Pt dressed and ready to discharge home with Spouse. HL and Tele removed. Discharge instructions reviewed with Pt, discussed stroke education, diet (Pt visited with office clin asst prior to discharge), how to check his blood pressure, diabetic consult, recommendation for holter monitor with follow up to PCP, and diet. Pt denied further questions and was taken out to pov by DIRECTOR DATA PROCESSING with Spouse and all belongings.
== END 2019-12-15 13:17 | disposition home or self-care (01) | DRG 65 ==
LOC: ED 18:22 → AC 18:35
PROVIDERS: Nurse Practitioner Family; Admitting Provider Internal Medicine; Emergency Provider Emergency Medicine; PCP Student in an Organized Health Care Education/Training Program; Visit Provider Internal Medicine
DX: I63.81 Other cerebral infarction due to occlusion or stenosis of small artery (principal); G81.94 Hemiplegia, unspecified affecting left nondominant side; E78.5 Hyperlipidemia, unspecified; E11.9 Type 2 diabetes mellitus without complications; R91.8 Other nonspecific abnormal finding of lung field
CPT/HCPCS: 36415; 70450; 70496; 70498; 70548; 70553; 80048; 80053; 80061; 80305; 82550; 82553; 82962; 83036; 83735; 84484; 85025; 85610; 85730; 87502; 87635; 93005; 93306; 96360; 97112; 97116; 97161; 97165; 97530; 99285; G0378

== ENCOUNTER → 2020-01-16 08:44 | Outpatient (CLI) | payer OTHER, SELFPAY ==
[2019-12-15 11:55] VITALS: BMI 31.4
[2020-01-16 09:45] LABS: BUN Creatinine Ratio 22.1 (6-22); Blood Urea Nitrogen 21 mg/dL (9-20); Calcium 9.2 mg/dL (8.4-10.2); Carbon Dioxide 28 mmol/L (22-32); Chloride 102 mmol/L (98-107); Cholesterol 120 mg/dL (140-199); Estimated Glomerular Filt Rate > 60.0 mL/min (>60); Glucose 105 mg/dL (80-110); HDL Cholesterol 35 mg/dL (40-60); HEMOLYSIS < 15 (0-50); LDL Cholesterol Calculated 63 mg/dL (<100); Sodium 137 mmol/L (137-145); Triglycerides 111 mg/dL (35-150)
[2020-01-16 09:59] LABS: Vitamin D 25 Hydroxy (D3) 33.1 ng/mL (30.0-100.0)
== END ==
PROVIDERS: PCP Student in an Organized Health Care Education/Training Program; Referring Provider Student in an Organized Health Care Education/Training Program; Visit Provider Student in an Organized Health Care Education/Training Program
DX: E78.5 Hyperlipidemia, unspecified (principal); Z79.1 Long term (current) use of non-steroidal anti-inflammatories (NSAID); E55.9 Vitamin D deficiency, unspecified
CPT/HCPCS: 36415; 80048; 80061; 82306

== ENCOUNTER → 2020-02-15 16:38 | Outpatient (CLI) | payer OTHER, SELFPAY ==
[2019-12-15 11:55] VITALS: BMI 31.4
--- NOTE | 2020-02-15 | DI.MRI.S_ITS ---
PROCEDURE: MR WRIST LT WO CON INDICATIONS: PAIN IN LEFT WRIST TECHNIQUE: Noncontrast coronal proton density fast spin echo and T2 fast spin echo with fat saturation; coronal 3-D gradient echo, axial T1 spin echo and T2 fast spin echo with fat saturation, sagittal T1 spin echo through the wrist. COMPARISON: [facility] [place], CR, XR WRIST 3+ VIEWS LEFT, 01/20/2020, 14:15. FINDINGS: Image quality: Excellent. Bones and cartilage: Chronic appearing fragmentation of the lunate with articular surface collapse and a volar osseous fragment seen on image 10/5. There is marrow T2 hyperintensity/edema. Scattered degenerative subchondral sclerosis and spurring. Carpal ligaments: The scapholunate and lunotriquetral ligaments are not well visualized although no definite interval widening In the absence of intra-articular contrast, the extrinsic carpal ligaments are not well identified. On sagittal images, the pisohamate ligament appears intact. Triangular fibrocartilage complex: The triangular fibrocartilage not well seen in the absence of intra-articular gadolinium, and there is amorphous nonspecific intermediate intrasubstance signal change The adjacent meniscal homolog appears normal in the absence of intra-articular contrast. The extensor carpi ulnaris tendon is normal in location and morphology. Tendons and soft tissues: Large amount of diffuse fluid surrounding the flexor tendons from the level of the radial metaphysis to the metacarpals, in keeping with severe tenosynovitis. All six extensor tendon compartments demonstrate normal morphology, without pathologic tendon sheath fluid. No soft tissue ganglion cysts. IMPRESSION: Chronic appearing fragmentation of the lunate and/or superimposed articular surface collapse. 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 Severe diffuse flexor tenosynovitis, which could be associated with carpal tunnel syndrome versus inflammatory arthropathy. Please correlate clinically Diffuse osteoarthritic changes as above Dictated by: Julián Juan M.D. on 02/16/2020 at 8:50 Approved by: Julián Juan M.D. on 02/16/2020 at 9:11
== END ==
PROVIDERS: PCP Student in an Organized Health Care Education/Training Program; Referring Provider Orthopaedic Surgery; Visit Provider Orthopaedic Surgery
DX: M25.532 Pain in left wrist (principal); M65.832 Other synovitis and tenosynovitis, left forearm
CPT/HCPCS: 73221

== ENCOUNTER → 2020-03-13 10:26 | Outpatient (CLI) | payer OTHER, SELFPAY ==
[2019-12-15 11:55] VITALS: BMI 31.4
[2020-03-13 11:51] LABS: Hemoglobin A1C% w Est Avg Glu 6.1 % (4.0-6.0)
== END ==
PROVIDERS: PCP Student in an Organized Health Care Education/Training Program; Referring Provider Student in an Organized Health Care Education/Training Program; Visit Provider Student in an Organized Health Care Education/Training Program
DX: R73.03 Prediabetes (principal)
CPT/HCPCS: 36415; 83036

== ENCOUNTER → 2020-06-05 08:12 | Outpatient (CLI) | payer OTHER, SELFPAY ==
[2019-12-15 11:55] VITALS: BMI 31.4
[2020-06-05 10:02] LABS: Hemoglobin A1C% w Est Avg Glu 6.2 % (4.0-6.0)
[2020-06-05 10:09] LABS: BUN Creatinine Ratio 21.8 (6-22); Blood Urea Nitrogen 22 mg/dL (9-20); Carbon Dioxide 30 mmol/L (22-32); Chloride 102 mmol/L (98-107); Estimated Glomerular Filt Rate > 60.0 mL/min (>60); Glucose 106 mg/dL (80-110); HEMOLYSIS < 15 (0-50); Potassium 5.1 mmol/L (3.4-5.1); Sodium 136 mmol/L (137-145)
[2020-06-05 11:02] LABS: Creatinine Urine Random 133.3 mg/dL
[2020-06-05 11:08] LABS: Microalbumin Urine Random < 0.6 mg/dL (0-1.6)
== END ==
PROVIDERS: PCP Student in an Organized Health Care Education/Training Program; Referring Provider Student in an Organized Health Care Education/Training Program; Visit Provider Student in an Organized Health Care Education/Training Program
DX: E11.9 Type 2 diabetes mellitus without complications (principal); I10 Essential (primary) hypertension
CPT/HCPCS: 36415; 80048; 82043; 82570; 83036

== ENCOUNTER → 2020-10-02 08:06 | Outpatient (CLI) | payer OTHER, SELFPAY ==
[2019-12-15 11:55] VITALS: BMI 31.4
[2020-10-02 09:09] LABS: Hemoglobin A1C% w Est Avg Glu 6.2 % (4.0-6.0)
== END ==
PROVIDERS: PCP Student in an Organized Health Care Education/Training Program; Referring Provider Student in an Organized Health Care Education/Training Program; Visit Provider Student in an Organized Health Care Education/Training Program
DX: E11.9 Type 2 diabetes mellitus without complications (principal)
CPT/HCPCS: 36415; 83036

== ENCOUNTER → 2021-05-23 15:52 | Outpatient (CLI) | payer OTHER, SELFPAY ==
[2019-12-15 11:55] VITALS: BMI 31.4
--- NOTE | 2021-05-23 15:54 | DI.RAD.S_ITS ---
PROCEDURE: XR HIP W PEL IF DONE RT 2V INDICATIONS: Hip pain TECHNIQUE: 2 views of the hip were acquired. COMPARISON: None. FINDINGS: Bones: No fractures or dislocations. Superior acetabular osteophytosis. No suspicious bony lesions. The visualized pelvic ring appears intact. Soft tissues: No suspicious soft tissue calcifications or masses. IMPRESSION: No acute osseous abnormality. Dictated by: Babak Stinson M.D. on 05/23/2021 at 16:25 Approved by: Babak Stinson M.D. on 05/23/2021 at 16:26
== END ==
PROVIDERS: PCP Student in an Organized Health Care Education/Training Program; Referring Provider Student in an Organized Health Care Education/Training Program; Visit Provider Student in an Organized Health Care Education/Training Program
DX: M25.551 Pain in right hip (principal)
CPT/HCPCS: 73502

== ENCOUNTER → 2021-05-27 08:08 | Outpatient (CLI) | payer OTHER, SELFPAY ==
[2019-12-15 11:55] VITALS: BMI 31.4
[2021-05-27 10:09] LABS: Hemoglobin A1C% w Est Avg Glu 6.5 % (4.0-6.0)
[2021-05-27 10:10] LABS: Creatinine Urine Random 167.3 mg/dL
[2021-05-27 10:11] LABS: BUN Creatinine Ratio 19.3 (6-22); Blood Urea Nitrogen 21 mg/dL (9-20); Calcium 9.2 mg/dL (8.4-10.2); Carbon Dioxide 31 mmol/L (22-32); Chloride 104 mmol/L (98-107); Estimated Glomerular Filt Rate > 60.0 mL/min (>60); Glucose 103 mg/dL (80-110); HEMOLYSIS < 15 (0-50); Potassium 4.8 mmol/L (3.4-5.1); Sodium 141 mmol/L (137-145)
[2021-05-27 10:14] LABS: Microalbumi Creatinin Ratio Ur 4.7 ug/mg CR (<30); Microalbumin Urine Random 0.8 mg/dL (0-1.6)
== END ==
PROVIDERS: PCP Student in an Organized Health Care Education/Training Program; Referring Provider Student in an Organized Health Care Education/Training Program; Visit Provider Student in an Organized Health Care Education/Training Program
DX: E11.9 Type 2 diabetes mellitus without complications (principal); I10 Essential (primary) hypertension
CPT/HCPCS: 36415; 80048; 82043; 82570; 83036

== ENCOUNTER → 2022-01-25 08:18 | Outpatient (CLI) | payer OTHER, SELFPAY ==
[2021-10-31 15:12] VITALS: BMI 31.4
[2022-01-25 09:25] LABS: Add Manual Diff / Slide Review NO; Basophils Absolute Auto 0 /uL (0-100); Basophils Percent Auto 0.7 % (0-2); Eosinophils Absolute Auto 300 /uL (0-450); Eosinophils Percent Auto 3.7 % (2-4); Hematocrit 45.8 % (41-53); Hemoglobin 15.4 g/dL (13.5-17.5); Lymphocytes Absolute Auto 1000 /uL (1100-4500); Lymphocytes Percent Auto 14.7 % (25-40); Mean Corpuscular HGB Conc 33.6 % (30-36); Mean Corpuscular Hemoglobin 29.3 PG (26-34); Monocytes Absolute Auto 600 /uL (0-900); Monocytes Percent Auto 8.3 % (3-14); Neutrophils Absolute Auto 5100 /uL (1500-7000); Neutrophils Percent Auto 72.6 % (50-75); Platelet Count 179 X10^3/uL (150-400); Red Blood Cell Count 5.27 X10^6/uL (4.5-5.9); Red Cell Distribution Width 13.6 % (11.6-14.8)
[2022-01-25 09:38] LABS: Hemoglobin A1C% w Est Avg Glu 6.5 % (4.0-6.0)
[2022-01-25 10:12] LABS: Creatinine Urine Random 177.9 mg/dL
[2022-01-25 10:16] LABS: Microalbumin Urine Random 0.9 mg/dL (0-1.6)
[2022-01-25 10:20] LABS: Alanine Aminotransferase 26 IU/L (<50); Albumin 4.1 g/dL (3.5-5.0); Albumin Globulin Ratio 1.6 (1.0-2.8); Alkaline Phosphatase 69 U/L (38-126); Aspartate Aminotransferase 27 IU/L (17-59); Bilirubin Total 0.7 mg/dL (0.2-1.3); Blood Urea Nitrogen 33 mg/dL (9-20); Carbon Dioxide 27 mmol/L (22-32); Chloride 104 mmol/L (98-107); Cholesterol 129 mg/dL (140-199); Estimated Glomerular Filt Rate > 60 mL/min (>60); Globulin 2.6 g/dL (1.7-4.1); Glucose 116 mg/dL (80-110); Potassium 4.7 mmol/L (3.4-5.1); Sodium 140 mmol/L (137-145); Total Protein 6.7 g/dL (6.3-8.2); Triglycerides 85 mg/dL (35-150)
[2022-01-25 10:21] LABS: HDL Cholesterol 41 mg/dL (40-60); HEMOLYSIS < 15 (0-50); LDL Cholesterol Calculated 71 mg/dL (<100)
[2022-01-25 10:42] LABS: TSH w/ Reflex to FT4 1.89 uIU/mL (0.47-4.68)
[2022-01-25 10:46] LABS: Prostate Specific Antigen Scrn 0.497 ng/mL (0.1-4.0)
== END ==
PROVIDERS: PCP Family Medicine; Referring Provider Family Medicine; Visit Provider Family Medicine
DX: E11.69 Type 2 diabetes mellitus with other specified complication (principal); E11.9 Type 2 diabetes mellitus without complications; E78.5 Hyperlipidemia, unspecified; Z12.5 Encounter for screening for malignant neoplasm of prostate; I10 Essential (primary) hypertension
CPT/HCPCS: 36415; 80053; 80061; 82043; 82570; 83036; 84443; 85025; G0103

== ENCOUNTER → 2022-04-16 09:14 | Outpatient (CLI) | payer OTHER, SELFPAY ==
[2021-10-31 15:12] VITALS: BMI 31.4
--- NOTE | 2022-04-16 | DI.RAD.S_ITS ---
PROCEDURE: FL BARIUM SWALLOW W SPEECH INDICATIONS: Dysphagia, pharyngoesophageal phase COMPARISON: TECHNIQUE: Examination was conducted in conjunction with speech pathology per standard protocol. In the lateral projection, filming was performed of the patient swallowing. AP projection filming may also be performed with patient swallowing. COMPARISON: [facility], , UPPER GI AIR CONTRAST WITH KUB, 12/22/2016, 8:32. [facility] [place], CR, XR PELVIS WITH LATERAL HIP RIGHT, 07/17/2021, 8:28. FINDINGS: Function: The oral preparatory phase appears normal, with proper containment. The subsequent oral propulsive phase, pharyngeal phase, and esophageal phase of swallowing also appear normal with all proffered substances. No laryngotracheal penetration or aspiration. No pathologic vallecular pooling. Morphology: There is a small the anchors diverticulum. No cricopharyngeal bar is identified. No cervical esophageal webs. No strictures. There is obstruction of the calibrated barium tablet at the gastroesophageal junction. IMPRESSION: 1. No laryngeal penetration or aspiration. Please see speech pathologist's report for detail. 2. Small anchors diverticulum. 3. Obstruction of calibrated barium tablet at the gastroesophageal junction. Recommend EGD for follow-up evaluation. Dictated by: Johan Burgos M.D. on 04/16/2022 at 10:13 Approved by: Johan Burgos M.D. on 04/16/2022 at 10:16
--- NOTE | 2022-04-16 12:30 | ST.SWALLOW ---
Visit Care Team Role Provider Type Shay Berman MD Primary Care Provider Physician Specialty: Family Practice Address: [address] [place] [address], [id number] Email: [email or web address] Luu MD Attending Provider Physician Referring Provider Specialty: Ear, Nose, Throat Address: [address] [place] [address], [address] Email: [email or web address] Modified Barium Swallow Study HOUSESMITH Modified Barium Swallow Study Start: 04/16/22 11:04 Freq: Status: Active Protocol: Document 04/16/22 11:04 LNK (Rec: 04/16/22 11:59 LNK [id number]) Modified Barium Swallow Study Total Time Visit Start Time 10:30 Visit Stop Time 11:00 Total Visit Minutes 30 Referral Referring Physician MURPHY Bourgeois Reason for Referral dysphagia Setting Setting Outpatient Care Patient Information Identification Type Name,Date of Patient History Pt was seen for a Modified Barium Swallow Study at the referral of Dr. Luu ENT. According to the pt and records reviewed, the pt has been experiencing a sense of globus that he describes as something stuck and a tightness near his thyroid. He has a PMH of GERD per MD report. Pt reported that he has esophageal dysmotility and a small Zenkers diverticulum per an esophagram in 2017. Pt denied coughing/choking with either liquids or solids. Subjective Observations pt was seated in the fluoroscopy chair with directions and procedures described to the pt. He indicated that he understood and agreed to proceed. Patient Positioning Position View Lat-A/P Imaging Lateral View Textures Administered Trials Presented Thin Liquid via Spoon,Thin Liquid via Cup,Pudding Thick Liquid via Spoon,Regular Textures,Barium Tablet Oral Phase Source: MBSIMP (TM) (C) Bolus Specific Scoring Grid Lip Closure No Impairment (WNL) Tongue Control During Bolus Hold No Impairment (WNL) Bolus Prep/Mastication No Impairment (WNL) Bolus Transport/Lingual Motion No Impairment (WNL) A/P Lingual Propulsion Delay No Residue Clearing No Impairment (WNL) Nasal Regurgitation No Additional Oral Phase Observations OME was noted to be WNL for form and function. Dentition was natural in good hygiene. Oral Phase of swallowing was observed to be WNL. Pharyngeal Phase Source: MBSIMP (TM) (C) Bolus Specific Scoring Grid Delayed Initiation of Pharyngeal Swallow No Soft Palate Elevation No Impairment (WNL) Tongue Base Strength/Range of Motion Mild Impairment Residue Along the Tongue Base No Laryngeal Elevation Mild Impairment Anterior Hyoid Movement Mild Impairment Epiglottic Range of Motion Minimal Impairment Vallecular Residue Yes Clearance of Vallecular Residue WFL Laryngeal Vestibular Closure No Impairment (WNL) Pharyngeal Stripping Wave Minimal Impairment Posterior Pharyngeal Wall Residue Yes Clearance of Posterior Pharyngeal Wall WFL Residue Upper Esophageal Sphincter Opening WFL Residue in the Pyriform Sinuses Yes Clearance of Residue in the Pyriform WFL Sinuses Esophageal Clearance Upright Position Mild Impairment Additional Pharyngeal Phase Observations Premature spillage observed past the valeculla toward the pyriform sinuses pre-swallow repose. Mild tongue base weakness, and reduced hyolaryngeal elevation/ movement. At rest, the pt's epiglottis sits horizontally in the phrynx and was observed to invert fully with good laryngeal seal/protection. No penetration or aspiration was observed. Pharyngeal residue of contrast was observed throughout the pharynx but was cleared WFL. No residue following the pudding thick liquid and the cookie trials was observed. A/P View Textures Administered Trials Presented Thin Liquid via Cup,Barium Tablet A/P View Observations Esophageal Function Reverse Peristalsis,Stasis Additional Observations The barium tablet was swallowed, passing to the LES. At the LES narrowing of the esophagus prevented the tablet from entering the stomach despite several swallows of water and thin barium. Liquids passed over the tablet , but did not move the tablet. Reverse peristalsis of the esophageal contents was observed and may be related to pt's PMH of GERD. A small Zenker's diverticulum was noted. Clinical Impressions Dysphagia Type Esophageal Findings pharyngeal phase of swallowing was observed to be WFL. However, there was narrowing of the distal esophagus which did not allow the tablet to pass into the stomach. No ST services recommended. Recommend GI consultation. Patient Appropriate for Therapy No Recommendations Diet Comments No diet change recommended Treatment Plan Recommended Referrals GI Consult
== END ==
PROVIDERS: PCP Family Medicine; Referring Provider Otolaryngology; Visit Provider Otolaryngology
DX: R13.14 Dysphagia, pharyngoesophageal phase (principal); K22.2 Esophageal obstruction
CPT/HCPCS: 74230; 92611

== ENCOUNTER → 2022-04-23 08:59 | Outpatient (CLI) | payer OTHER, SELFPAY ==
[2021-10-31 15:12] VITALS: BMI 31.4
[2022-04-23 11:25] LABS: Hemoglobin A1C% w Est Avg Glu 6.7 % (4.0-6.0)
== END ==
PROVIDERS: PCP Family Medicine; Referring Provider Family Medicine; Visit Provider Family Medicine
DX: E11.69 Type 2 diabetes mellitus with other specified complication (principal); E78.5 Hyperlipidemia, unspecified; I10 Essential (primary) hypertension
CPT/HCPCS: 36415; 83036

== ENCOUNTER → 2022-12-01 19:52 | Outpatient (CLI) | payer OTHER, SELFPAY ==
[2021-10-31 15:12] VITALS: BMI 31.4
--- NOTE | 2022-12-01 | DI.MRI.S_ITS ---
PROCEDURE: MR LUMBAR SPINE WO CON INDICATIONS: Strain of muscle, fascia and tendon of lower back TECHNIQUE: Noncontrast sagittal T1 spin echo and T2 fast echo, sagittal STIR, and T2 fast spin echo through the lumbar spine. In cases with scoliosis, additional coronal T2 fast spin echo may be performed. COMPARISON: None. FINDINGS: Image quality: This examination is limited by involuntary motion artifact. Alignment and Curvature: Mild levoconvex scoliotic curvature is noted. Minimal retrolisthesis can be seen at L1-L2, L3-L4, L4-L5, and at L5-S1. Bone Marrow: Marrow is of normal overall signal. No acute vertebral body compression fractures. Spinal Cord: Conus medullaris terminates at the L1 level. Visualized cord demonstrates normal signal and size. Paraspinous Soft Tissues: No paravertebral masses. T12-L1: No significant abnormality is seen. L1-L2: At least moderate loss of disc height and disc signal can be seen posteriorly. At least moderate disc bulge is seen, which is eccentric to the right, with a right foraminal disc protrusion. There is a central disc protrusion also seen. Moderate facet joint hypertrophy is seen. There is at least moderate right-sided and moderate left-sided neural foraminal narrowing. At least moderate central canal narrowing is seen, as on series 5, image 14. L2-L3: At least moderate loss of disc height and disc signal can be seen at this level. At least moderate disc bulge is seen, which is eccentric to the right. Posteriorly projected endplate osteophytes are seen. There is at least moderate right-sided and moderate left-sided facet hypertrophy. There is at least moderate bilateral neural foraminal narrowing seen. There is a degree of compression seen upon the exiting nerve roots. At least moderate central canal narrowing can be seen at this level. L3-L4: At least moderate loss of disc height and disc signal can be seen. At least moderate disc bulge is seen, which is eccentric to the right. Posteriorly projected endplate osteophytes are seen. There is at least moderate right-sided and moderate left-sided facet hypertrophy. There is moderate to severe bilateral neural foraminal narrowing seen, with an associated a degree of compression seen upon the exiting nerve roots. At least moderate central canal narrowing is seen, as on series 5, image 24. L4-L5: There is at least moderate loss of disc height and disc signal. At least moderate disc bulge is seen. Bridging anterior osteophytes are seen. Posteriorly projected endplate osteophytes are seen. There is a superimposed central disc protrusion. Moderate to prominent facet hypertrophy can be seen. There is moderate to severe bilateral neural foraminal narrowing seen, with an associated a degree of compression seen upon the exiting nerve roots. Moderate to severe central canal narrowing is seen, as on series 5, image 28. L5-S1: Moderate to severe loss of disc height and disc signal can be seen at this level. At least moderate disc bulge is seen, which is eccentric to the left. Posteriorly projected endplate osteophytes are seen. Moderate to prominent facet hypertrophy can be seen at this level. There is moderate to severe bilateral neural foraminal narrowing seen, with an associated a degree of compression seen upon the exiting nerve roots. Moderate central canal narrowing is seen. IMPRESSION: Multiple levels of significant lumbar spine degenerative change can be seen, which are worst inferiorly. Mild levoconvex scoliotic curvature is noted. Dictated by: Simon Thompson M.D. on 12/02/2022 at 17:29 Approved by: Simon Thompson M.D. on 12/02/2022 at 17:33
== END ==
PROVIDERS: PCP Family Medicine; Referring Provider Physical Medicine & Rehabilitation Pain Medicine; Visit Provider Physical Medicine & Rehabilitation Pain Medicine
DX: S39.012D Strain of muscle, fascia and tendon of lower back, subsequent encounter (principal); M47.816 Spondylosis without myelopathy or radiculopathy, lumbar region; M47.817 Spondylosis without myelopathy or radiculopathy, lumbosacral region; M41.9 Scoliosis, unspecified
CPT/HCPCS: 72148

== ENCOUNTER → 2022-12-19 10:28 | Outpatient (CLI) | payer OTHER, SELFPAY ==
[2021-10-31 15:12] VITALS: BMI 31.4
[2022-12-19 10:58] LABS: Add Manual Diff / Slide Review NO; Basophils Absolute Auto 0 /uL (0-100); Basophils Percent Auto 0.6 % (0-2); Eosinophils Absolute Auto 200 /uL (0-450); Eosinophils Percent Auto 2.6 % (2-4); Hemoglobin 14.3 g/dL (13.5-17.5); Lymphocytes Absolute Auto 1100 /uL (1100-4500); Lymphocytes Percent Auto 14.7 % (25-40); Mean Corpuscular HGB Conc 34.1 % (30-36); Mean Corpuscular Hemoglobin 29.1 PG (26-34); Mean Corpuscular Volume 85.4 fL (80-100); Monocytes Absolute Auto 500 /uL (0-900); Monocytes Percent Auto 6.3 % (3-14); Neutrophils Absolute Auto 5500 /uL (1500-7000); Neutrophils Percent Auto 75.8 % (50-75); Platelet Count 183 X10^3/uL (150-400); Red Blood Cell Count 4.92 X10^6/uL (4.5-5.9); White Blood Cell Count 7.2 X10^3/uL (4.5-11.0)
[2022-12-19 11:24] LABS: Alanine Aminotransferase 25 IU/L (<50); Albumin 3.9 g/dL (3.5-5.0); Albumin Globulin Ratio 1.6 (1.0-2.8); Alkaline Phosphatase 83 U/L (38-126); Aspartate Aminotransferase 29 IU/L (17-59); BUN Creatinine Ratio 22.9 (6-22); Bilirubin Total 0.9 mg/dL (0.2-1.3); Blood Urea Nitrogen 22 mg/dL (9-20); Calcium 8.7 mg/dL (8.4-10.2); Carbon Dioxide 25 mmol/L (22-32); Chloride 105 mmol/L (98-107); Cholesterol 124 mg/dL (140-199); Estimated Glomerular Filt Rate > 60 mL/min (>60); Globulin 2.5 g/dL (1.7-4.1); Glucose 117 mg/dL (80-110); HDL Cholesterol 37 mg/dL (40-60); HEMOLYSIS < 15 (0-50); LDL Cholesterol Calculated 69 mg/dL (<100); Potassium 4.2 mmol/L (3.4-5.1); Sodium 138 mmol/L (137-145); Total Protein 6.4 g/dL (6.3-8.2); Triglycerides 92 mg/dL (35-150)
[2022-12-19 11:51] LABS: Prostate Specific Antigen Scrn 0.437 ng/mL (0.1-4.0)
[2022-12-19 12:08] LABS: Appearance Urine UA CLEAR; Bilirubin Urine UA NEGATIVE (NEGATIVE); Color Urine UA YELLOW; Glucose Urine UA NEGATIVE (Negative); Ketones Urine UA NEGATIVE (NEGATIVE); Leukocyte Esterase Urine UA NEGATIVE (NEGATIVE); Nitrite Urine UA NEGATIVE (Negative); Occult Blood Urine UA NEGATIVE (Negative); Protein Urine UA NEGATIVE (Negative); Specific Gravity Urine UA 1.025 (1.000-1.035); pH Urine UA 5.5 (4.5-8.0)
[2022-12-19 12:23] LABS: Amorphous Sediment Urine 1+; Bacteria Urine None Seen; Culture Indicated Urine Cult Not Indicated; Mucus Urine 2+ (Negative); RBC Urine None Seen (0-5/HPF); Squamous Epithelial Cell Urine 0-1 /HPF (0-5/HPF); WBC Urine None Seen (0-5/HPF)
[2022-12-19 12:35] LABS: Creatinine Urine Random 206.6 mg/dL
[2022-12-19 12:39] LABS: Microalbumi Creatinin Ratio Ur 3.8 ug/mg CR (<30); Microalbumin Urine Random 0.8 mg/dL (0-1.6)
[2022-12-20 05:18] LABS: x Labcorp Estim. Avg Glu (eAG) 154 mg/dL (.)
== END ==
PROVIDERS: PCP Family Medicine; Referring Provider Family Medicine; Visit Provider Family Medicine
DX: Z12.5 Encounter for screening for malignant neoplasm of prostate; E11.69 Type 2 diabetes mellitus with other specified complication; E78.5 Hyperlipidemia, unspecified; M54.16 Radiculopathy, lumbar region; K22.4 Dyskinesia of esophagus; M79.671 Pain in right foot; M79.672 Pain in left foot; M92.212 Osteochondrosis (juvenile) of carpal lunate [Kienbock], left hand; R39.9 Unspecified symptoms and signs involving the genitourinary system
CPT/HCPCS: 36415; 80053; 80061; 81001; 82043; 82570; 83036; 85025; G0103

== ENCOUNTER → 2023-02-24 15:40 | Outpatient (CLI) | payer OTHER, SELFPAY ==
[2021-10-31 15:12] VITALS: BMI 31.4
[2023-02-24 17:21] LABS: COVID-19 CEPHEID 4-PLEX PCR Negative (Negative); Influenza A - CEPHEID Flu A NEGATIVE (NEGATIVE); Influenza B - CEPHEID Flu B NEGATIVE (NEGATIVE); Respiratory Syncytial Virus Negative (Negative)
== END ==
PROVIDERS: PCP Family Medicine; Visit Provider Family Medicine
DX: J06.9 Acute upper respiratory infection, unspecified (principal); R50.9 Fever, unspecified
CPT/HCPCS: 0241U; 87086

== ENCOUNTER → 2023-03-02 13:08 | Outpatient (CLI) | payer OTHER, SELFPAY ==
[2021-10-31 15:12] VITALS: BMI 31.4
--- NOTE | 2023-03-02 13:29 | DI.MRI.S_ITS ---
PROCEDURE: MR HIP RT WO CON INDICATIONS: RIGHT HIP PAIN TECHNIQUE: Noncontrast coronal T1 spin echo and STIR through the bony pelvis. Coronal and axial T2 fast spin echo with fat saturation, sagittal T1 spin echo, and oblique axial T2 fast spin echo with fat saturation through the hip. COMPARISON: None. FINDINGS: Image quality: Excellent. Bones and joints: Asymmetric [id number] right hip joint osteoarthritic changes are seen with joint space narrowing, subchondral sclerosis and small lateral marginal osteophyte formation. No intraosseous lesions or fractures. No avascular necrosis of the femoral heads. Degenerative disc disease in visualized lower lumbar spine is seen. Tendons and ligaments: Moderate grade partial-thickness tear involving distal right gluteus medius at its insertion on greater trochanter is seen extending to musculotendinous junction. Distal right gluteus minimus tendinosis is seen. The nearby proximal iliotibial band also appears intact. The iliopsoas tendon appears intact, without adjacent bursal fluid collections or evidence for impingement syndrome. Mild tendinosis involving hamstring tendon origins at ischial tuberosity is noted. Labrum and cartilage: There is thinning of articulating cartilage of right femoral head. Fraying of superior anterior right hip labrum with T2 hyperintense signal at 12 to 1 o'clock position is seen. The alpha angle of the femur is within normal limits at less than 55 degrees. Soft tissues: Visualized muscles demonstrate normal bulk and internal signal. Quadratus femoris muscle demonstrates no internal edema to suggest ischiofemoral impingement. The proximal sciatic neurovascular bundle appears normal adjacent to the hamstring tendons. No free pelvic fluid. Bladder wall thickness is normal. Genitourinary structures and bowel loops appear normal where visualized. IMPRESSION: 1. Finding is suggestive of superior anterior right hip labral tear at 12 to 1 o'clock position. 2. Asymmetric [id number] right hip joint osteoarthritis. No hip fracture or dislocation. No evidence of avascular necrosis. 3. Moderate grade partial-thickness tear involving distal right gluteus medius tendon at its insertion on greater trochanter extending to musculotendinous junction. Distal right gluteus minimus tendinosis. Tendinosis also seen involving hamstring tendon origins at ischial tuberosity. Dictated by: Dean Sweeney M.D. on 03/02/2023 at 15:33 Approved by: Dean Sweeney M.D. on 03/02/2023 at 15:36
== END ==
PROVIDERS: PCP Family Medicine; Referring Provider Orthopaedic Surgery; Visit Provider Orthopaedic Surgery
DX: M25.551 Pain in right hip (principal); M16.11 Unilateral primary osteoarthritis, right hip; S76.011A Strain of muscle, fascia and tendon of right hip, initial encounter
CPT/HCPCS: 73721

== ENCOUNTER → 2023-07-04 09:04 | Outpatient (CLI) | payer OTHER, SELFPAY ==
[2021-10-31 15:12] VITALS: BMI 31.4
[2023-07-04 13:11] LABS: Hemoglobin A1C% w Est Avg Glu 6.4 % (4.0-6.0)
== END ==
PROVIDERS: PCP Family Medicine; Referring Provider Family Medicine; Visit Provider Family Medicine
DX: E11.69 Type 2 diabetes mellitus with other specified complication (principal); E78.5 Hyperlipidemia, unspecified
CPT/HCPCS: 36415; 83036

== ENCOUNTER → 2023-09-01 09:53 | Outpatient (CLI) | payer OTHER, SELFPAY ==
[2021-10-31 15:12] VITALS: BMI 31.4
--- NOTE | 2023-09-01 22:38 | DI.NM.S_ITS ---
DATE OF SERVICE: 09/01/2023 PROCEDURE: Exercise perfusion study. INDICATIONS: Shortness of breath with underlying diabetes mellitus, hypertension, hyperlipidemia. RADIOPHARMACEUTICAL: 25.0 millicuries technetium-99m Myoview IV was injected at stress and 12.6 millicuries technetium-99m Myoview IV was injected at rest. CARDIAC STRESS: The patient underwent exercise perfusion study under the supervision of an attending staff using standard Reese protocol. The patient walked on Reese protocol for 5 minutes and 53 seconds, achieved maximum heart rate of 160, which was 113% of target heart rate. Resting blood pressure 120/90 and peak blood pressure 202/96. Achieved 7 METS of workload. YUSEF -6%. No chest pain or anginal symptoms. Baseline rhythm was atrial fibrillation with controlled ventricular rate. During stress, the patient remained in AFib with some isolated PVCs without any ventricular tachycardia. Normal recovery with decrease in heart rate. RAW DATA: There is increased subdiaphragmatic activity. Patient's weight is 215 pounds. Diaphragmatic shadow seen as well. GATED STUDY: Stress LV ejection fraction 70% without any obvious wall motion abnormalities. Resting end-diastolic volume 109 mL. TID ratio 0.93, which is within normal limits. Lung/heart ratio 0.27, which is within normal limits. MYOCARDIAL PERFUSION SCAN: Stress supine, resting supine and stress prone images were compared to each other. Stress supine and resting supine images revealed moderate size, mild to moderately decreased perfusion of base to mid inferior wall, which got significantly improved during stress prone images suggestive of tissue attenuation artifact. On stress prone images, there was mildly decreased perfusion of distal inferolateral wall, which was not seen during stress supine images. Likely shifting tissue attenuation artifact. No convincing ischemia or infarction. Summed stress and summed rest score is zero. CONCLUSION: I will call this study a normal myocardial perfusion with evidence of tissue attenuation artifact, which got improved during prone images along with some shifting tissue attenuation artifact. On EKG, patient has coarse atrial fibrillation with controlled ventricular rate. No prior history of atrial fibrillation. Left ventricular function is preserved. As far as perfusion scan is concerned, this is a low-risk myocardial perfusion scan. However, atrial fibrillation appears to be a new diagnosis. My midlevel, Tea, would call Dr. Berman to consider anticoagulation and further evaluation. Matias Lucero - DIRECTOR CLOUD TRANSFORMATION/fn/MT doc#: [id number]/job#: [id number] dd: 09/01/2023 16:39:00 dt: 09/01/2023 22:25:00 DICTATING MD/COPIES TO: Kam Cesar MD; Shay Berman, DARLIN MNE: RUBY;
== END ==
LOC: NUCM 09:54
PROVIDERS: PCP Family Medicine; Referring Provider Family Medicine; Visit Provider Family Medicine
DX: Z00.00 Encounter for general adult medical examination without abnormal findings (principal); E11.69 Type 2 diabetes mellitus with other specified complication; E78.5 Hyperlipidemia, unspecified; R06.09 Other forms of dyspnea
CPT/HCPCS: 78452; 93017; A9502

== ENCOUNTER → 2023-11-17 06:53 | Outpatient (CLI) | payer OTHER, SELFPAY ==
[2021-10-31 15:12] VITALS: BMI 31.4
--- NOTE | 2023-11-17 06:54 | DI.ECHO.S_ITS ---
[facility]+ [facility] : : [id number] : : [place] : : [id number] : : Phone: [phone] Echocardiogram Report + + :Name: DENISE CROSS Study Date: 11/17/2023 Height: 71 in : :[facility] ReadingLocation: Weight: 205 lb : : Gender: Male BSA: 2.1 m2 : :: 1945 Age: 78 yrs BP: 109/80 mmHg: :Reason For Study: ATRIAL FIBRILLATION : :Ordering Physician: PINKY, : :NILSON Performed By: Kamron Craig : :Referring: NILSON LUDWIG : + + Interpretation Summary 1) Normal left ventricular size and thickness with mildly reduced systolic function (EF 45-50%) 2) Mildly enlarged right ventricle with mildly reduced systolic function. 3) The left atrium is severely dilated. The right atrium is moderate to severely dilated. 4) There is mild mitral regurgitation. 5) There is mild aortic regurgitation. 5) Compared to the Echo done 12/14/2019, LVEF has decreased from normal to mildly reduced on this study. Procedure: A two-dimensional transthoracic echocardiogram with color flow and Doppler was performed. The study quality was technically adequate. Comparison is made with the echocardiogram of 12/14/2019. The patient was in atrial fibrillation with heart rates between 50-70 bpm during the exam. Left Ventricle: The left ventricle is normal in size and wall thickness. The ejection fraction is estimated to be 45-50%. There is mild global hypokinesis of the left ventricle. Diastolic parameters suggest a relaxation abnormality of the left ventricle, consistent with probable normal filling pressures. Right Ventricle: The right ventricle is mildly dilated. Right ventricular systolic function is mildly reduced. Atria: The left atrium is severely dilated. The right atrium is moderate to severely dilated. The interatrial septum grossly appears intact with no obvious evidence for an atrial septal defect. Mitral Valve: The mitral valve is normal. There is no mitral valve stenosis. There is mild mitral regurgitation. Aortic Valve: The aortic valve is trileaflet. There is no aortic valve stenosis. There is mild aortic regurgitation. Tricuspid Valve: The tricuspid valve is not well visualized, but is grossly normal. There is no tricuspid stenosis. There is mild tricuspid regurgitation. The right ventricular systolic pressure is estimated to be at least 31.9 mmHg based on an estimated right atrial pressure of 3 mm Hg. Pulmonic Valve: The pulmonic valve is not well seen, but is grossly normal. There is no pulmonic valvular stenosis. There is mild to moderate pulmonic regurgitation. Great Vessels: The aortic root is mildly dilated. The ascending aorta is at the upper limits of normal in size. The IVC is of normal diameter and collapses greater than 50% with a sniff. This suggests a low right atrial pressure of 3 mm Hg. Pericardium/ Pleura There is no pericardial effusion. There is no pleural effusion. MMode/2D Measurements & Calculations LVIDd: 4.8 cm LVOT diam: 2.6 cm LVIDs: 3.4 cm Ao root diam: 3.9 cm FS: 29.5 % asc Aorta Diam: 3.7 cm IVSd: 1.1 cm Ao Arch Diam (Prox Trans): 2.5 cm LVPWd: 1.0 cm LV marmolejo. diameter/BSA (cm/m^2): 2.2 LV sys. diameter/BSA (cm/m^2): 1.6 LA A2 area: 33.0 cm2 RA long axis: 6.5 cm LA A4 area: 27.0 cm2 RA area: 28.6 cm2 LA length (vol): 6.2 cm RA vol: 106.0 ml LA vol: 121.6 ml RA : 49.7 ml/m2 LA vol index: 57.1 ml/m2 IVC diam: 1.8 cm RVD1 (basal): 4.7 cm RVD2 (mid): 4.0 cm TAPSE: 1.7 cm Doppler Measurements & Calculations Ao V2 max: 96.8 cm/sec LVOT Max Dillon: 71.9 cm/sec Ao V2 mean: 74.2 cm/sec LV V1 max P.1 mmHg Ao max P.8 mmHg LV V1 VTI: 14.0 cm Ao mean P.3 mmHg JOSIE(I,D): 3.4 cm2 Ao V2 VTI: 21.3 cm JOSIE(V,D): 3.9 cm2 sev ratio: 0.66 JOSIE indexed to BSA (cm^2/m^2): 1.6 MV E max dillon: 67.2 cm/sec TR max dillon: 268.8 cm/sec MV A max dillon: 11.9 cm/sec TR max P.9 mmHg MV E/A: 5.7 PA V2 max: 64.7 cm/sec Med Peak E' Dillon: 6.9 cm/sec PA V2 mean: 43.4 cm/sec E/E' med: 9.7 PA mean P.85 mmHg Lat Peak E' Dillon: 8.2 cm/sec PA pr(Accel): 33.9 mmHg E/E' lat: 8.2 E/e' average: 8.9 MV dec time: 0.20 sec SV(OT): 73.0 ml Reading Physician:09:26 AM
== END ==
LOC: ECHO 06:54
PROVIDERS: PCP Family Medicine; Referring Provider Internal Medicine Cardiovascular Disease; Visit Provider Internal Medicine Cardiovascular Disease
DX: I08.3 Combined rheumatic disorders of mitral, aortic and tricuspid valves (principal); I77.810 Thoracic aortic ectasia; I48.19 Other persistent atrial fibrillation
CPT/HCPCS: 93306

== ENCOUNTER → 2023-12-10 11:08 | Outpatient (CLI) | payer OTHER, SELFPAY ==
[2021-10-31 15:12] VITALS: BMI 31.4
--- NOTE | 2023-12-10 11:09 | DI.RAD.S_ITS ---
PROCEDURE: XR SHOULDER RT MIN 2V INDICATIONS: Right upper arm injury, right shoulder injury TECHNIQUE: 3 views of the shoulder were acquired. COMPARISON: None. FINDINGS: Bones: No fractures or dislocations. No suspicious bony lesions. Visualized ribs appear intact. Glenohumeral and AC joint moderate joint space narrowing with marginal osteophytes Soft tissues: No suspicious soft tissue calcifications. IMPRESSION: Moderate glenohumeral and AC osteoarthritis Approved by: Hunter Cruz M.D. on 12/10/2023 at 20:34
--- NOTE | 2023-12-10 11:09 | DI.RAD.S_ITS ---
PROCEDURE: XR HUMERUS RT 2V INDICATIONS: Right upper arm injury TECHNIQUE: 2 views of the humerus were acquired. COMPARISON: None. FINDINGS: Bones: No fractures or dislocations. No suspicious bony lesions. Right shoulder arthrosis. Soft tissues: No suspicious soft tissue calcifications. IMPRESSION: No acute bony abnormality. Dictated by: Chelsea Hoffman MD, PhD on 12/10/2023 at 11:26 Approved by: Chelsea Hoffman MD, PhD on 12/10/2023 at 11:27
== END ==
PROVIDERS: PCP Family Medicine; Referring Provider Physician Assistant Surgical; Visit Provider Physician Assistant Surgical
DX: S49.91XA Unspecified injury of right shoulder and upper arm, initial encounter (principal); M19.011 Primary osteoarthritis, right shoulder; X58.XXXA Exposure to other specified factors, initial encounter
CPT/HCPCS: 73030; 73060

== ENCOUNTER → 2024-02-10 11:00 | Outpatient (CLI) | payer OTHER, SELFPAY ==
[2021-10-31 15:12] VITALS: BMI 31.4
--- NOTE | 2024-02-10 11:01 | DI.RAD.S_ITS ---
PROCEDURE: XR HIP W PEL IF DONE RT 2V INDICATIONS: Right hip pain TECHNIQUE: AP pelvis with lateral view(s) of the right hip(s). COMPARISON: None. FINDINGS: Bones: No fractures or dislocations. Tgek-me-avxjvyyu bilateral hip joint osteoarthritic changes are seen with superior joint space narrowing, subchondral sclerosis and marginal osteophyte formation. No evidence of avascular necrosis of femoral head. Pelvic ring appears intact. Benign-appearing sclerotic focus is noted involving intertrochanteric region of left proximal femur. Degenerative disc disease in visualized lower lumbar spine is seen. Soft tissues: The visualized bowel gas pattern is normal. No suspicious soft tissue calcifications. IMPRESSION: 1. [id number] bilateral hip joint osteoarthritis. No acute pelvic or hip fracture. No evidence of avascular necrosis. Dictated by: Dean Sweeney M.D. on 02/10/2024 at 15:37 Approved by: Dean Sweeney M.D. on 02/10/2024 at 15:38
== END ==
PROVIDERS: PCP Family Medicine; Referring Provider Nurse Practitioner Family; Visit Provider Nurse Practitioner Family
DX: M25.551 Pain in right hip (principal); M16.0 Bilateral primary osteoarthritis of hip
CPT/HCPCS: 73502

== ENCOUNTER → 2024-05-27 16:12 | Outpatient (CLI) | payer OTHER, SELFPAY ==
[2021-10-31 15:12] VITALS: BMI 31.4
[2024-05-27 17:18] LABS: Influenza A - CEPHEID Flu A NEGATIVE (NEGATIVE); Influenza B - CEPHEID Flu B NEGATIVE (NEGATIVE); Respiratory Syncytial Virus Negative (Negative)
[2024-05-27 17:25] LABS: COVID-19 CEPHEID 4-PLEX PCR Negative (Negative)
== END ==
PROVIDERS: PCP Family Medicine; Visit Provider Physician Assistant
DX: R05.1 Acute cough (principal)
CPT/HCPCS: 0241U

== ENCOUNTER → 2024-05-27 16:30 | Outpatient (CLI) | payer OTHER, SELFPAY ==
[2021-10-31 15:12] VITALS: BMI 31.4
--- NOTE | 2024-05-27 16:31 | DI.RAD.S_ITS ---
PROCEDURE: XR CHEST 2V INDICATIONS: Cough TECHNIQUE: 2 views of the chest were acquired. COMPARISON: None. FINDINGS: Surgical changes and devices: None. Lungs and pleura: Lungs are clear. No pleural effusions or pneumothorax. Mediastinum: Mediastinal contours are normal. Heart size is normal. Bones and chest wall: No suspicious bony abnormalities. Soft tissues appear unremarkable. IMPRESSION: No acute cardiopulmonary abnormality is seen. Dictated by: Anoop Carpio M.D. on 05/27/2024 at 17:07 Approved by: Anoop Carpio M.D. on 05/27/2024 at 17:10
== END ==
PROVIDERS: PCP Family Medicine; Referring Provider Physician Assistant; Visit Provider Physician Assistant
DX: R05.1 Acute cough (principal)
CPT/HCPCS: 0241U; 71046

== ENCOUNTER → 2024-07-07 09:24 | Outpatient (CLI) | payer OTHER, SELFPAY ==
[2021-10-31 15:12] VITALS: BMI 31.4
[2024-07-07 10:18] LABS: Add Manual Diff / Slide Review NO; Basophils Absolute Auto 0 /uL (0-100); Basophils Percent Auto 0.3 % (0-2); Eosinophils Absolute Auto 100 /uL (0-450); Eosinophils Percent Auto 1.8 % (2-4); Hematocrit 45.5 % (41-53); Hemoglobin 15.5 g/dL (13.5-17.5); Lymphocytes Absolute Auto 1700 /uL (1100-4500); Lymphocytes Percent Auto 20.9 % (25-40); Mean Corpuscular HGB Conc 33.9 % (30-36); Mean Corpuscular Hemoglobin 29.8 PG (26-34); Mean Corpuscular Volume 87.7 fL (80-100); Monocytes Absolute Auto 700 /uL (0-900); Monocytes Percent Auto 8.2 % (3-14); Neutrophils Absolute Auto 5600 /uL (1500-7000); Neutrophils Percent Auto 68.8 % (50-75); Platelet Count 179 X10^3/uL (150-400); Red Blood Cell Count 5.19 X10^6/uL (4.5-5.9); Red Cell Distribution Width 13.4 % (11.6-14.8); White Blood Cell Count 8.2 X10^3/uL (4.5-11.0)
[2024-07-07 10:33] LABS: Hemoglobin A1C% w Est Avg Glu 6.9 % (4.0-6.0)
[2024-07-07 10:41] LABS: Alanine Aminotransferase 27 IU/L (<50); Albumin 4.3 g/dL (3.5-5.0); Albumin Globulin Ratio 1.7 (1.0-2.8); Alkaline Phosphatase 76 U/L (38-126); Aspartate Aminotransferase 30 IU/L (17-59); BUN Creatinine Ratio 16.4 (6-22); Blood Urea Nitrogen 19 mg/dL (9-20); Calcium 9.1 mg/dL (8.4-10.2); Carbon Dioxide 24 mmol/L (22-32); Chloride 104 mmol/L (98-107); Cholesterol 127 mg/dL (140-199); Estimated Glomerular Filt Rate > 60 mL/min (>60); Globulin 2.5 g/dL (1.7-4.1); Glucose 135 mg/dL (80-110); HDL Cholesterol 38 mg/dL (40-60); HEMOLYSIS < 15 (0-50); LDL Cholesterol Calculated 73 mg/dL (<100); Potassium 4.6 mmol/L (3.4-5.1); Sodium 139 mmol/L (137-145); Total Protein 6.8 g/dL (6.3-8.2); Triglycerides 80 mg/dL (35-150)
[2024-07-07 11:07] LABS: TSH w/ Reflex to FT4 1.16 uIU/mL (0.47-4.68)
[2024-07-07 11:09] LABS: Prostate Specific Antigen Scrn 0.463 ng/mL (0.1-4.0)
[2024-07-07 11:49] LABS: Microalbumin Urine Random 0.7 mg/dL (0-1.6)
== END ==
PROVIDERS: PCP Family Medicine; Referring Provider Family Medicine; Visit Provider Family Medicine
DX: R26.89 Other abnormalities of gait and mobility (principal); E11.9 Type 2 diabetes mellitus without complications; Z12.5 Encounter for screening for malignant neoplasm of prostate; I48.91 Unspecified atrial fibrillation; M54.16 Radiculopathy, lumbar region
CPT/HCPCS: 36415; 80053; 80061; 82043; 82570; 83036; 84443; 85025; G0103

== ENCOUNTER → 2024-12-19 09:04 | Outpatient (CLI) | payer OTHER, SELFPAY ==
[2021-10-31 15:12] VITALS: BMI 31.4
[2024-12-19 10:27] LABS: Hemoglobin A1C% w Est Avg Glu 7.0 % (4.0-6.0)
[2024-12-19 10:37] LABS: Alanine Aminotransferase 29 IU/L (<50); Albumin 4.6 g/dL (3.5-5.0); Albumin Globulin Ratio 1.8 (1.0-2.8); Alkaline Phosphatase 73 U/L (38-126); Blood Urea Nitrogen 17 mg/dL (9-20); Calcium 9.3 mg/dL (8.4-10.2); Carbon Dioxide 22 mmol/L (22-32); Chloride 104 mmol/L (98-107); Estimated Glomerular Filt Rate > 60 mL/min (>60); Globulin 2.5 g/dL (1.7-4.1); Glucose 148 mg/dL (70-99); HEMOLYSIS 17 (0-50); Potassium 4.7 mmol/L (3.4-5.1); Sodium 137 mmol/L (137-145); Total Protein 7.1 g/dL (6.3-8.2)
== END ==
PROVIDERS: PCP Family Medicine; Referring Provider Family Medicine; Visit Provider Family Medicine
DX: R73.01 Impaired fasting glucose (principal)
CPT/HCPCS: 36415; 80053; 83036

== ENCOUNTER → 2025-01-26 14:19 | Outpatient (CLI) | payer OTHER, SELFPAY ==
[2021-10-31 15:12] VITALS: BMI 31.4
--- NOTE | 2025-01-26 14:21 | DI.RAD.S_ITS ---
PROCEDURE: XR LUMBAR SPINE 2-3V INDICATIONS: bilateral hip pain and back pain TECHNIQUE: 3 views of the lumbar spine were acquired. COMPARISON: None. FINDINGS: Bones: 5 giv-owc-xkaxetv vertebrae are present. Lumbar levoscoliosis. 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 No vertebral body compression fractures. No suspicious bony lesions. Moderate degenerative arthrosis of the bilateral sacroiliac joints. There Soft tissues: Overlying bowel gas pattern is normal. No suspicious soft tissue calcifications. Vascular calcifications. IMPRESSION: Lumbar levoscoliosis with advanced spondylosis. Dictated by: Wade Bliss M.D. on 01/26/2025 at 16:10 Approved by: Wade Bliss M.D. on 01/26/2025 at 16:17
--- NOTE | 2025-01-26 14:21 | DI.RAD.S_ITS ---
PROCEDURE: XR HIP W PEL IF DONE BILAT 2V INDICATIONS: bilateral hip pain TECHNIQUE: AP pelvis with lateral view(s) of the bilateral hip(s). COMPARISON: [facility], CR, XR HIP W PEL IF DONE RT 2V, 02/10/2024, 11:04. [facility], CR, XR HIP W PEL IF DONE RT 2V, 05/23/2021, 16:01. FINDINGS: Bones: No fractures or dislocations. Pelvic ring appears intact. No suspicious bony lesions. Bone island in the rib left intertrochanteric femur. Moderate degenerate arthrosis of both hips. Advanced inferior lumbar degenerative disc disease. Moderate degenerate arthrosis of bilateral sacroiliac joints. Soft tissues: The visualized bowel gas pattern is normal. No suspicious soft tissue calcifications. IMPRESSION: No acute osseous abnormality. Moderate degenerate arthrosis of both hips. Dictated by: Wade Bliss M.D. on 01/26/2025 at 16:17 Approved by: Wade Bliss M.D. on 01/26/2025 at 16:18
== END ==
PROVIDERS: PCP Family Medicine; Referring Provider Family Medicine; Visit Provider Family Medicine
DX: M47.26 Other spondylosis with radiculopathy, lumbar region (principal); M48.26 Kissing spine, lumbar region; M47.28 Other spondylosis with radiculopathy, sacral and sacrococcygeal region; M41.9 Scoliosis, unspecified; M25.551 Pain in right hip; M25.552 Pain in left hip
CPT/HCPCS: 72100; 73521

== ENCOUNTER → 2025-04-10 08:46 | Outpatient (CLI) | payer OTHER, SELFPAY ==
[2021-10-31 15:12] VITALS: BMI 31.4
[2025-04-10 10:31] LABS: Hemoglobin A1C% w Est Avg Glu 6.7 % (4.0-6.0)
[2025-04-10 10:54] LABS: Alanine Aminotransferase 32 IU/L (<50); Albumin 4.1 g/dL (3.5-5.0); Albumin Globulin Ratio 1.5 (1.0-2.8); Alkaline Phosphatase 68 U/L (38-126); Blood Urea Nitrogen 18 mg/dL (9-20); Calcium 9.2 mg/dL (8.4-10.2); Carbon Dioxide 28 mmol/L (22-32); Chloride 105 mmol/L (98-107); Estimated Glomerular Filt Rate > 60 mL/min (>60); Globulin 2.7 g/dL (1.7-4.1); Glucose 124 mg/dL (70-99); HEMOLYSIS < 15 (0-50); Potassium 5.2 mmol/L (3.4-5.1); Sodium 141 mmol/L (137-145); Total Protein 6.8 g/dL (6.3-8.2)
== END ==
PROVIDERS: PCP Family Medicine; Referring Provider Family Medicine; Visit Provider Family Medicine
DX: E11.69 Type 2 diabetes mellitus with other specified complication (principal); E78.5 Hyperlipidemia, unspecified
CPT/HCPCS: 36415; 80053; 83036